=== PATIENT | female | born 1950 | race Caucasian/White ===

== ENCOUNTER 2016-07-26 12:48 | Inpatient (IN) | payer MEDICARE, BC ==
[~2016-07-26 12:48] MED LIST: SUCCINYLCHOLINE CHLORIDE INJ 200 MG/10 ML VIAL ONE
[2016-07-26] MEDS ORDERED: ACETAMINOPHEN 325 MG TABLET PO PRN (13:12)
[2016-07-26 14:05] LABS: HEMATOCRIT 46.4 % (36.0-47.0); HEMOGLOBIN 15.4 g/dL (12.0-15.5); HGB HCT DIFFERENCE -0.2; MEAN CORPUSCULAR HEMOGLOBIN 31.3 pg (27.0-33.4); MEAN CORPUSCULAR HGB CONC 33.2 g/dL (32.0-36.0); MEAN CORPUSCULAR VOLUME 94 fl (80-97); RED BLOOD COUNT 4.93 10^6/uL (3.72-5.28); RED CELL DISTRIBUTION WIDTH 13.8 % (11.5-14.0); WHITE BLOOD COUNT 12.2 10^3/uL (4.0-10.5)
--- NOTE | 2016-07-26 14:07 | PDOC H&P ---
History of Present Illness Admission Date/PCP: 07/26/16 12:48 Patti Estrella Patient complains of: Shortness of the breath and hypoxia History of Present Illness: RAE ARCHER is a 65 year old femMarinais is a 65-year-old with a significant history of the coronary artery disease chest post stent placement history of the COPD and continues to smoke and a history of the hypertension's hyperlipidemia and anxiety disorder came to the my office today with a complaining of a fever 102 and the shortness of the breath and not feeling well and patient's oxygen saturations below 85 room air. Patient was given nebulizer treatment and off and put on oxygen but still patients not feeling well and patient had 1 or 2 feet patient's quite a bit short of breath and wheezing and decided to admit in the hospital for further evaluation and treatment and discussed with the patient and family and angry about that. She is denied any chest pain patient also complains of cough congestions with a yellowish green sputum since last several days. Past Medical History Cardiac Medical History: Reports: Coronary Artery Disease, Hyperlipidema, Hypertension, Peripheral Vascular Disease Pulmonary Medical History: Reports: Chronic Obstructive Pulmonary Disease (COPD) Denies: Tuberculosis Neurological Medical History: Denies: Seizures GI Medical History: Reports: Gastroesophageal Reflux Disease Psychiatric Medical History: Reports: Depression Past Surgical History Past Surgical History: Reports: Cardiac Catheterization - w/ stent, Coronary Stent, Vascular Surgery - LEFT CAROTID ENDARTERECTOMY Denies: Hysterectomy Social History Information Source: Patient Smoking Status: Current Every Day Smoker Frequency of Alcohol Use: Rare Hx Recreational Drug Use: No Hx Prescription Drug Abuse: No Family History Family History: Reviewed & Not Pertinent, DM, Hypertension, Other - COPD Parental Family History Reviewed: Yes Children Family History Reviewed: Yes Sibling(s) Family History Reviewed.: Yes Medication/Allergy Home Medications: Bupropion HCl [Bupropion HCl Sr] 300 mg PO DAILY 08/17/13 Clopidogrel Bisulfate [Plavix 75 mg Tablet] 75 mg PO DAILY 08/17/13 Lisinopril/Hydrochlorothiazide [Lisinopril-Hctz 20-12.5 mg Tab] 1 each PO DAILY 08/17/13 Omeprazole 40 mg PO DAILY 08/17/13 Zolpidem Tartrate 10 mg PO DAILY 08/17/13 Albuterol Sulfate [Proair HFA Inhalation Aerosol 8.5 gm MDI] 2 puff IH Q6 #0 hfa.aer.ad 08/19/13 Budesonide/Formoterol Fumarate [Symbicort HFA 160-4.5 mcg Inhaler 6 gm] 2 puff IH BID #0 inhaler 08/19/13 Ferrous Sulfate 325 mg PO DAILY #100 tablet.dr 08/19/13 Metoprolol Tartrate [Lopressor 25 mg Tablet] 12.5 mg PO Q12 #0 tablet 08/19/13 Nitroglycerin [Nitro-Dur 5 mg (0.2 mg/Hr) Transdermal Patch] 1 each TD DAILY # 0 patch.td24 08/19/13 Ranolazine [Ranexa 500 mg Tab.sr] 500 mg PO Q12 #0 tab.sr.12h 08/19/13 Atorvastatin Calcium [Lipitor 20 mg Tablet] 20 mg PO QHS 08/31/13 Psyllium Seed (with Sugar) [Metamucil Fiber Wafer] 1 each PO DAILY 08/31/13 Allergies/Adverse Reactions: levofloxacin [From Levaquin] Allergy (Verified 08/17/13 15:57) Review of Systems Constitutional: PRESENT: chills, fatigue, weakness Nose, Mouth, and Throat: ABSENT: as per HPI, headache(s), mouth pain, sore throat, vertigo, other Cardiovascular: PRESENT: dyspnea on exertion Respiratory: PRESENT: cough, dyspnea, sputum Gastrointestinal: ABSENT: as per HPI, abdominal pain, bloating, coffee ground emesis, constipation, diarrhea, dysphagia, heartburn, hematemesis, hematochezia , melena, nausea, vomiting, other Genitourinary: ABSENT: as per HPI, difficulty urinating, dysuria, hematuria, nocturia, other Musculoskeletal: ABSENT: as per HPI, back pain, deformity, joint swelling, muscle weakness, other Neurological: PRESENT: weakness Psychiatric: PRESENT: depression Physical Exam Vital Signs: Temp Pulse Resp BP Pulse Ox 101.9 F H 110 H 19 130/63 H 82 L 07/26/16 13:14 07/26/16 13:14 07/26/16 13:14 07/26/16 13:14 07/26/16 13:14 Intake & Output 07/25/16 07/26/16 07/27/16 06:59 06:59 06:59 Weight 66.9 kg General appearance: PRESENT: no acute distress Eye exam: PRESENT: PERRLA Mouth exam: PRESENT: neck supple Respiratory exam: PRESENT: decreased breath sounds, wheezes Cardiovascular exam: PRESENT: +S1, +S2, tachycardia GI/Abdominal exam: PRESENT: normal bowel sounds, soft. ABSENT: tenderness Extremities exam: ABSENT: pedal edema Neurological exam: PRESENT: alert, awake, oriented to person, oriented to place , oriented to time, oriented to situation Psychiatric exam: PRESENT: anxious, depressed Skin exam: PRESENT: dry Assessment & Plan - Diagnosis (1) Fever Qualifiers: Fever type: unspecified Qualified Code(s): R50.9 - Fever, unspecified Is this a current diagnosis for this admission?: YesPlan: Possible fluid and underlying pneumonia we will do the flu test and also get the blood culture urine culture sputum and start the patient on the broad- spectrum antibiotic (2) COPD with acute bronchitis Is this a current diagnosis for this admission?: YesPlan: Start patient's nebulizer treatment and also antibiotic (3) Hypoxia Is this a current diagnosis for this admission?: YesPlan: The patient is a 2 L nasal cannula and oxygen scoot up to 90 we will also get the CT angiogram (4) Coronary artery disease Qualifiers: Coronary Disease-Associated Artery/Lesion type: unspecified vessel or lesion type Is this a current diagnosis for this admission?: YesPlan: At the EKG the patient's denied any coronary symptoms (5) Hypertension Qualifiers: Hypertension type: essential hypertension Qualified Code(s): I10 - Essential (primary) hypertension Is this a current diagnosis for this admission?: YesPlan: Continues the current medications (6) Depression Qualifiers: Depression Type: major depressive disorder Is this a current diagnosis for this admission?: YesPlan: Continues the current medications (7) Smoker Is this a current diagnosis for this admission?: YesPlan: Discussed with the patient about smoking cessation - Time Time Spent: 30 to 50 Minutes Medications reviewed and adjusted accordingly: Yes Anticipated discharge: Home Within: Other - Inpatient Certification Medical Necessity: Need Close Monitoring Due to Risk of Patient Decompensation, Need For IV Fluids, Need for IV Antibiotics Post Hospital Care: D/C Manager Speech Documentation - Plan Summary Plan Summary: Admit the patient in the hospital for further work and IV antibiotic and nebulizer treatment and discussed with the patient and the family and agree and directly admitted in the hospital
[2016-07-26] MEDS ORDERED: INFLUENZA ADLT QUAD (36MOS+) 2016-17 VAC 0.5 ML SYR IM PRN (14:12)
[2016-07-26] MEDS ORDERED: IPRATROPIUM/ALBUTEROL 0.5-2.5 MG/3 ML AMPUL NEB ONE (14:15)
[2016-07-26 14:21] LABS: APPEARANCE,URINE SLIGHTLY-CLOUDY; BILIRUBIN,URINE NEGATIVE (NEGATIVE); GLUCOSE, URINE NEGATIVE (NEGATIVE); KETONES,URINE 80 mg/dL (NEGATIVE); LEUKOCYTE ESTERASE,URINE SMALL (NEGATIVE); NITRITE,URINE NEGATIVE (NEGATIVE); PROTEIN,URINE 100 mg/dL (NEGATIVE); URINE SPECIFIC GRAVITY 1.027; UROBILINOGEN,URINE NEGATIVE mg/dL (<2.0)
[2016-07-26 14:23] LABS: ANION GAP 9 (5-19); BLOOD UREA NITROGEN 14 mg/dL (7-20); CALCIUM 9.7 mg/dL (8.4-10.2); CARBON DIOXIDE 26 mmol/L (22-30); CHLORIDE 101 mmol/L (98-107); CREATININE RESULT 0.83 mg/dL (0.52-1.25); GLUCOSE 90 mg/dL (75-110); POTASSIUM 4.1 mmol/L (3.6-5.0); SODIUM 136.2 mmol/L (137-145)
[2016-07-26 14:32] LABS: BAND NEUTROPHILS % (MANUAL) 2 % (3-5); BASOPHILS % (MANUAL) 0 % (0-2); EOSINOPHILS % (MANUAL) 0 % (0-6); LYMPHOCYTES % (MANUAL) 3 % (13-45); TOTAL CELLS COUNTED 100
[2016-07-26 14:33] LABS: RBC MORPHOLOGY COMMENT NORMO-CYTIC/CHROMIC; TOXIC GRANULATION SLIGHT; TOXIC VACUOLATION PRESENT
[2016-07-26] MEDS ORDERED: CEFEPIME 1 GM/D5W RTU 1 GM/50 ML RTUPB IV ONE (15:00)
[2016-07-26] MEDS: NORMAL SALINE 1000 ML 1,000 ML IV PRN (15:12)
[2016-07-26] MEDS: IPRATROPIUM/ALBUTEROL 0.5-2.5 MG/3 ML AMPUL NEB SCH ×2 (15:53→20:06)
[2016-07-26] MEDS ORDERED: LANSOPRAZOLE 15 MG TAB.RAP.DR PO SCH (17:00)
[2016-07-26] MEDS ORDERED: SIMVASTATIN 10 MG TABLET PO SCH (18:00)
[2016-07-26] MEDS ORDERED: (PENDING PHARMACY ID) (Simvastatin [Simvastatin] 20 MG) PO SCH (18:00)
[2016-07-26] MEDS ORDERED: (PENDING PHARMACY ID) (Levocetirizine Dihydrochloride [Xyzal 5 Mg Tablet] 5 MG) PO SCH (18:00)
[2016-07-26] MEDS ORDERED: CETIRIZINE 5 MG TABLET PO SCH (18:00)
[2016-07-26] MEDS: DOCUSATE SODIUM 100 MG CAPSULE PO SCH (18:11)
[2016-07-26] MEDS: AZITHROMYCIN 500 MG in DEXTROSE 5%-WATER 250 ML IV SCH (18:16)
[2016-07-26] MEDS: ALBUTEROL SULFATE HFA (90 MCG/PUFF) 200 PUFF/8.5 GM MDI IH SCH (18:18)
[2016-07-26] MEDS ORDERED: IPRATROPIUM/ALBUTEROL 0.5-2.5 MG/3 ML AMPUL NEB SCH (20:00)
[2016-07-26] MEDS ORDERED: NICOTINE 21 MG/24 HR PATCH.TD24 TD ONE (21:00)
[2016-07-26] MEDS: RANOLAZINE 500 MG TAB.SR.12H PO SCH (21:19)
--- NOTE | 2016-07-26 21:41 | EKG REPORT ---
SEVERITY:- OTHERWISE NORMAL ECG - SINUS TACHYCARDIA : Confirmed by: Meka Shay 26-Jul-2016 21:40:33
[2016-07-26] MEDS: METHYLPREDNISOLONE INJ 125 MG/2 ML SDV IV SCH (21:59)
[2016-07-26] MEDS ORDERED: AMLODIPINE BESYLATE 2.5 MG TABLET PO SCH (22:00)
[2016-07-26] MEDS ORDERED: ZOLPIDEM TARTRATE 5 MG TABLET PO SCH (22:00)
[2016-07-26] MEDS ORDERED: TIOTROPIUM BROMIDE DPI 5 CAP/KIT (18 MCG/CAP) IH ONE (22:00)
[2016-07-26] MEDS ORDERED: MONTELUKAST SODIUM 10 MG TABLET PO SCH (22:00)
[2016-07-26] MEDS ORDERED: BUDESONIDE/FORMOTEROL 160-4.5 MCG 60 PUFF/6 GM MDI IH SCH (22:00)
[2016-07-26] MEDS: IPRATROPIUM/ALBUTEROL 0.5-2.5 MG/3 ML AMPUL NEB PRN (23:01)
[2016-07-26] MEDS ORDERED: MAGNESIUM SULFATE/D5W 1 GM/100 ML RTUPB IV ONE (23:32)
[2016-07-27] MEDS ORDERED: MAGNESIUM SULFATE/D5W 1 GM/100 ML RTUPB IV ONE (00:15)
[2016-07-27] MEDS ORDERED: PROPOFOL 100 ML IV ONE (00:17)
[2016-07-27] MEDS: IPRATROPIUM/ALBUTEROL 0.5-2.5 MG/3 ML AMPUL NEB PRN (00:25)
[2016-07-27] MEDS ORDERED: PHENYLEPHRINE HCL INJ/PF 10 MG/1 ML SDV ONE (01:05)
[2016-07-27 01:09] LABS: ARTERIAL BLOOD BASE EXCESS -3.7 mmol/L; ARTERIAL BLOOD O2 SATURATION 95.9 % (94-98)
[2016-07-27] MEDS ORDERED: PHARMACY COMMUNICATION ORDER MC NR ×2 (01:45)
[2016-07-27] MEDS: ALBUTEROL SULFATE HFA (90 MCG/PUFF) 200 PUFF/8.5 GM MDI IH SCH (02:09)
[2016-07-27] MEDS: DEXTROSE 5%-WATER 250 ML with PHENYLEPHRINE HCL 40 MG IV PRN ×2 (02:15)
[2016-07-27] MEDS: PROPOFOL 100 ML IV PRN ×7 (02:21→21:55)
[2016-07-27] MEDS ORDERED: CEFEPIME 1 GM/D5W RTU 1 GM/50 ML RTUPB IV ONE (02:47)
[2016-07-27] MEDS: CEFEPIME 1 GM/D5W RTU 1 GM/50 ML RTUPB IV SCH ×2 (02:50→15:20)
[2016-07-27 04:12] LABS: HEMATOCRIT 39.8 % (36.0-47.0); HEMOGLOBIN 13.4 g/dL (12.0-15.5); HGB HCT DIFFERENCE 0.4; MEAN CORPUSCULAR HEMOGLOBIN 31.6 pg (27.0-33.4); MEAN CORPUSCULAR HGB CONC 33.5 g/dL (32.0-36.0); MEAN CORPUSCULAR VOLUME 94 fl (80-97); RED BLOOD COUNT 4.23 10^6/uL (3.72-5.28); WHITE BLOOD COUNT 8.7 10^3/uL (4.0-10.5)
[2016-07-27 04:34] LABS: ANION GAP 9 (5-19); BLOOD UREA NITROGEN 15 mg/dL (7-20); CALCIUM 8.5 mg/dL (8.4-10.2); CARBON DIOXIDE 22 mmol/L (22-30); CHLORIDE 103 mmol/L (98-107); CREATININE RESULT 0.85 mg/dL (0.52-1.25); GLUCOSE 157 mg/dL (75-110); POTASSIUM 4.6 mmol/L (3.6-5.0); SODIUM 133.5 mmol/L (137-145)
[2016-07-27] MEDS: IPRATROPIUM/ALBUTEROL 0.5-2.5 MG/3 ML AMPUL NEB SCH ×5 (04:57→20:24)
[2016-07-27] MEDS: LANSOPRAZOLE 15 MG TAB.RAP.DR NG SCH ×2 (05:37→17:16)
[2016-07-27] MEDS: METHYLPREDNISOLONE INJ 125 MG/2 ML SDV IV SCH ×3 (05:37→21:00)
[2016-07-27 06:15] LABS: ARTERIAL BLOOD BASE EXCESS -3.8 mmol/L; ARTERIAL BLOOD O2 SATURATION 98.3 % (94-98)
[2016-07-27] MEDS ORDERED: LORAZEPAM INJ 2 MG/1 ML VIAL IV PRN (07:49)
[2016-07-27] MEDS ORDERED: IPRATROPIUM/ALBUTEROL 0.5-2.5 MG/3 ML AMPUL NEB SCH (08:00)
[2016-07-27] MEDS: ENOXAPARIN SODIUM INJ 40 MG/0.4 ML DISP.SYRIN SUBCUT SCH (08:45)
[2016-07-27] MEDS: LORAZEPAM INJ 2 MG/1 ML VIAL IV PRN ×2 (09:25→17:08)
[2016-07-27] MEDS: AMLODIPINE BESYLATE 2.5 MG TABLET NG SCH ×2 (09:26→21:00)
[2016-07-27] MEDS: NICOTINE 21 MG/24 HR PATCH.TD24 TD SCH (09:28)
[2016-07-27] MEDS: DOCUSATE SODIUM 100 MG CAPSULE PO SCH (09:29)
[2016-07-27] MEDS ORDERED: (PENDING PHARMACY ID) (Zolpidem Tartrate [Zolpidem Tartrate] 10 MG) PO SCH (10:00)
[2016-07-27] MEDS ORDERED: (PENDING PHARMACY ID) (Linaclotide [Linzess] 145 MCG) PO SCH (10:00)
[2016-07-27] MEDS ORDERED: DOCUSATE SODIUM 100 MG/10 ML UDC NG SCH (10:00)
[2016-07-27 11:05] LABS: ARTERIAL BLOOD BASE EXCESS -2.3 mmol/L; ARTERIAL BLOOD O2 SATURATION 95.2 % (94-98)
--- NOTE | 2016-07-27 12:36 | PDOC CONSULTATION ---
Consultation Consult Date: 07/27/16 Attending physician:: GISELA OCHOA Consult reason:: resp failure History of Present Illness Admission Date/PCP: 07/26/16 13:12 Patti Estrella History of Present Illness: RAE ARCHER is a 65 year old female with a significant history of the coronary artery disease chest post stent placement history of the COPD and continues to smoke and a history of the hypertension's hyperlipidemia and anxiety disorder came to the my office today with a complaining of a fever 102 and the shortness of the breath and not feeling well and patient's oxygen saturations below 85 room air. Patient was given nebulizer treatment and off and put on oxygen but still patients not feeling well and patient had 1 or 2 feet patient's quite a bit short of breath and wheezing and decided to admit in the hospital for further evaluation and treatment and discussed with the patient and family and angry about that. She is denied any chest pain patient also complains of cough congestions with a yellowish green sputum since last several days. Over the next several hours her respiratory status continued to decline she was placed in the ICU and subsequently intubated. Is currently displaying gram-negative rods in the sputum although no overt pneumonia is not displayed on CTA. Patient continues to smoke as above. Past Medical History Cardiac Medical History: Reports: Coronary Artery Disease, Hyperlipidema, Hypertension, Peripheral Vascular Disease Pulmonary Medical History: Reports: Chronic Obstructive Pulmonary Disease (COPD) Denies: Tuberculosis Neurological Medical History: Denies: Seizures GI Medical History: Reports: Gastroesophageal Reflux Disease Psychiatric Medical History: Reports: Depression Past Surgical History Past Surgical History: Reports: Cardiac Catheterization - w/ stent, Coronary Stent, Vascular Surgery - LEFT CAROTID ENDARTERECTOMY Denies: Hysterectomy Social History Information Source: [facility] Records Smoking Status: Current Every Day Smoker Cigarettes Packs Per Day: 1 Cigars Per Day: 10 Number of Years Smokin Last Time Smoked: yesterday a.m. Frequency of Alcohol Use: Rare Hx Recreational Drug Use: No Hx Prescription Drug Abuse: No - Advance Directive Resuscitation Status: Full Code Family History Family History: Reviewed & Not Pertinent, DM, Hypertension, Other - COPD Parental Family History Reviewed: No Children Family History Reviewed: No Sibling(s) Family History Reviewed.: No Medication/Allergy Home Medications: Zolpidem Tartrate 10 mg PO DAILY 08/17/13 Albuterol Sulfate [Proair HFA Inhalation Aerosol 8.5 gm MDI] 2 puff IH Q6 #0 hfa.aer.ad 08/19/13 Budesonide/Formoterol Fumarate [Symbicort HFA 160-4.5 mcg Inhaler 6 gm] 2 puff IH BID #0 inhaler 08/19/13 Ranolazine [Ranexa 500 mg Tab.sr] 500 mg PO Q12 #0 tab.sr.12h 08/19/13 Amlodipine Besylate 2.5 mg PO Q12H 07/26/16 Ipratropium/Albuterol Sulfate [Iprat-Albut 0.5-3(2.5) Mg/3 Ml] 3 ml IH Q6H 07/26 Isosorbide Mononitrate [Imdur 30 mg Tablet.er] 30 mg PO DAILY 07/26/16 Levocetirizine Dihydrochloride [Xyzal 5 mg Tablet] 5 mg PO QPM 07/26/16 Linaclotide [Linzess] 145 mcg PO DAILY 07/26/16 Montelukast Sodium 10 mg PO QHS 07/26/16 Simvastatin 20 mg PO QPM 07/26/16 Allergies/Adverse Reactions: levofloxacin [From Levaquin] Allergy (Verified 08/17/13 15:57) Review of Systems ROS unobtainable: Due to endotracheal tube Physical Exam Vital Signs: Temp Pulse Resp BP Pulse Ox 98.8 F 64 16 133/61 H 96 07/27/16 08:00 07/27/16 10:00 07/27/16 10:00 07/27/16 10:00 07/27/16 10:00 Intake & Output 07/26/16 07/27/16 07/28/16 06:59 06:59 06:59 Intake Total 300 Output Total 270 245 Balance 30 -245 Weight 68.8 kg General appearance: PRESENT: no acute distress, disheveled, well-developed, well -nourished Head exam: PRESENT: atraumatic, normocephalic Eye exam: PRESENT: conjunctiva pale Mouth exam: PRESENT: dry mucosa, neck supple, tongue midline, other - ET tube in place Neck exam: ABSENT: carotid bruit, JVD, lymphadenopathy, thyromegaly Respiratory exam: PRESENT: decreased breath sounds, prolonged expiratory phas, rales, rhonchi, symmetrical, unlabored Cardiovascular exam: PRESENT: RRR, +S1, +S2 Pulses: PRESENT: normal radial pulses GI/Abdominal exam: PRESENT: normal bowel sounds, soft. ABSENT: distended, guarding, mass, organolmegaly, rebound, tenderness Rectal exam: PRESENT: deferred Gentrourinary exam: PRESENT: indwelling catheter Musculoskeletal exam: PRESENT: normal inspection Skin exam: PRESENT: dry, intact, warm Results Laboratory Results: 07/27/16 03:54 07/27/16 03:54 07/26/16 07/26/16 07/26/16 13:45 13:45 13:55 WBC 12.2 H RBC 4.93 Hgb 15.4 Hct 46.4 MCV 94 MCH 31.3 MCHC 33.2 RDW 13.8 Plt Count 179 Seg Neutrophils % Not Reportable Lymphocytes % Not Reportable Monocytes % Not Reportable Eosinophils % Not Reportable Basophils % Not Reportable Absolute Neutrophils Not Reportable Absolute Lymphocytes Not Reportable Absolute Monocytes Not Reportable Absolute Eosinophils Not Reportable Absolute Basophils Not Reportable Carbonic Acid HCO3/H2CO3 Ratio ABG pH ABG pCO2 ABG pO2 ABG HCO3 ABG O2 Saturation ABG Base Excess FiO2 Sodium 136.2 L Potassium 4.1 Chloride 101 Carbon Dioxide 26 Anion Gap 9 BUN 14 Creatinine 0.83 Est GFR ( Amer) > 60 Est GFR (Non-Af Amer) > 60 Glucose 90 Calcium 9.7 Urine Color YELLOW Urine Appearance SLIGHTLY-CLOUDY Urine pH 5.0 Ur Specific [place] 1.027 Urine Protein 100 H Urine Glucose (UA) NEGATIVE Urine Ketones 80 H Urine Blood LARGE H Urine Nitrite NEGATIVE Ur Leukocyte Esterase SMALL H Urine WBC (Auto) 5 Urine RBC (Auto) 4 07/26/16 07/27/16 07/27/16 23:45 03:54 03:54 WBC 8.7 RBC 4.23 Hgb 13.4 Hct 39.8 MCV 94 MCH 31.6 MCHC 33.5 RDW 14.0 Plt Count 154 Seg Neutrophils % Lymphocytes % Monocytes % Eosinophils % Basophils % Absolute Neutrophils Absolute Lymphocytes Absolute Monocytes Absolute Eosinophils Absolute Basophils Carbonic Acid 2.02 H HCO3/H2CO3 Ratio 12:1 ABG pH 7.21 L ABG pCO2 67.0 H ABG pO2 98.5 ABG HCO3 26.0 ABG O2 Saturation 95.9 ABG Base Excess -3.7 FiO2 3L Sodium 133.5 L Potassium 4.6 Chloride 103 Carbon Dioxide 22 Anion Gap 9 BUN 15 Creatinine 0.85 Est GFR ( Amer) > 60 Est GFR (Non-Af Amer) > 60 Glucose 157 H Calcium 8.5 Urine Color Urine Appearance Urine pH Ur Specific [place] Urine Protein Urine Glucose (UA) Urine Ketones Urine Blood Urine Nitrite Ur Leukocyte Esterase Urine WBC (Auto) Urine RBC (Auto) 07/27/16 07/27/16 06:00 10:35 WBC RBC Hgb Hct MCV MCH MCHC RDW Plt Count Seg Neutrophils % Lymphocytes % Monocytes % Eosinophils % Basophils % Absolute Neutrophils Absolute Lymphocytes Absolute Monocytes Absolute Eosinophils Absolute Basophils Carbonic Acid 1.56 H 1.44 H HCO3/H2CO3 Ratio 15:1 16:1 ABG pH 7.28 L 7.32 L ABG pCO2 51.9 H 47.7 H ABG pO2 132.5 H 82.0 ABG HCO3 23.6 24.1 ABG O2 Saturation 98.3 H 95.2 ABG Base Excess -3.8 -2.3 FiO2 50% 40% Sodium Potassium Chloride Carbon Dioxide Anion Gap BUN Creatinine Est GFR ( Amer) Est GFR (Non-Af Amer) Glucose Calcium Urine Color Urine Appearance Urine pH Ur Specific [place] Urine Protein Urine Glucose (UA) Urine Ketones Urine Blood Urine Nitrite Ur Leukocyte Esterase Urine WBC (Auto) Urine RBC (Auto) 07/26/16 13:45 NT-Pro-B Natriuret Pep 169 Impressions: Chest/Abdomen CTA 07/26/16 00:00 IMPRESSION: NORMAL CTA OF THE CHEST. NO PULMONARY EMBOLI. EMPHYSEMATOUS CHANGES WITH CHRONIC SCARRING. NO ACUTE FINDINGS. Chest X-Ray 07/27/16 00:08 IMPRESSION: No acute radiographic finding in the chest. Emphysema. Support devices in expected locations. Assessment & Plan - Diagnosis (1) Respiratory failure with hypoxia and hypercapnia Qualifiers: Chronicity: acute on chronic Qualified Code(s): J96.21 - Acute and chronic respiratory failure with hypoxia; J96.22 - Acute and chronic respiratory failure with hypercapnia Is this a current diagnosis for this admission?: YesPlan: Mechanical ventilation resolved respiratory acidosis and to provide adequate oxygenation suggest holding spiriva and budesonide (2) Depression Qualifiers: Depression Type: major depressive disorder Is this a current diagnosis for this admission?: YesPlan: Add small dose of Xanax to daily regimen (3) Smoker Is this a current diagnosis for this admission?: YesPlan: Transdermal nicotine patch - Time Critical Time spent with patient: 35 or more minutes - 55 min
--- NOTE | 2016-07-27 16:55 | PDOC PROGRESS REPORT ---
Subjective Progress Note for:: 07/27/16 Subjective:: Patient is intubated last night and transferred to the intensive care unit due to the worsening the respiratory distress.Patient's chest x-ray is stablePatient is currently intubated under sedation's and some pressor supportDiscussed with the daughter on the bedside about patient's current conditionPatient CT scans source of severe emphysema but no sign of any pulmonary embolism Physical Exam Vital Signs: Temp Pulse Resp BP Pulse Ox 97.5 F 68 16 120/54 L 94 07/27/16 16:00 07/27/16 16:00 07/27/16 16:00 07/27/16 16:00 07/27/16 16:00 Intake & Output 07/26/16 07/27/16 07/28/16 06:59 06:59 06:59 Intake Total 300 Output Total 270 435 Balance 30 -435 Weight 68.8 kg Physical Exam: Currently intubated under sedation's Head exam: PRESENT: normocephalic Eye exam: PRESENT: PERRLA Mouth exam: PRESENT: neck supple Respiratory exam: PRESENT: decreased breath sounds Cardiovascular exam: PRESENT: +S1, +S2 GI/Abdominal exam: PRESENT: normal bowel sounds, soft Extremities exam: ABSENT: pedal edema Neurological exam: PRESENT: other - Under sedation Results Laboratory Results: 07/27/16 03:54 07/27/16 03:54 07/26/16 07/27/16 07/27/16 23:45 03:54 03:54 WBC 8.7 RBC 4.23 Hgb 13.4 Hct 39.8 MCV 94 MCH 31.6 MCHC 33.5 RDW 14.0 Plt Count 154 Carbonic Acid 2.02 H HCO3/H2CO3 Ratio 12:1 ABG pH 7.21 L ABG pCO2 67.0 H ABG pO2 98.5 ABG HCO3 26.0 ABG O2 Saturation 95.9 ABG Base Excess -3.7 FiO2 3L Sodium 133.5 L Potassium 4.6 Chloride 103 Carbon Dioxide 22 Anion Gap 9 BUN 15 Creatinine 0.85 Est GFR ( Amer) > 60 Est GFR (Non-Af Amer) > 60 Glucose 157 H Calcium 8.5 07/27/16 07/27/16 06:00 10:35 WBC RBC Hgb Hct MCV MCH MCHC RDW Plt Count Carbonic Acid 1.56 H 1.44 H HCO3/H2CO3 Ratio 15:1 16:1 ABG pH 7.28 L 7.32 L ABG pCO2 51.9 H 47.7 H ABG pO2 132.5 H 82.0 ABG HCO3 23.6 24.1 ABG O2 Saturation 98.3 H 95.2 ABG Base Excess -3.8 -2.3 FiO2 50% 40% Sodium Potassium Chloride Carbon Dioxide Anion Gap BUN Creatinine Est GFR ( Amer) Est GFR (Non-Af Amer) Glucose Calcium 07/26/16 13:45 NT-Pro-B Natriuret Pep 169 Impressions: Chest/Abdomen CTA 07/26/16 00:00 IMPRESSION: NORMAL CTA OF THE CHEST. NO PULMONARY EMBOLI. EMPHYSEMATOUS CHANGES WITH CHRONIC SCARRING. NO ACUTE FINDINGS. Chest X-Ray 07/27/16 00:08 IMPRESSION: No acute radiographic finding in the chest. Emphysema. Support devices in expected locations. Assessment & Plan - Diagnosis (1) Fever Qualifiers: Fever type: unspecified Qualified Code(s): R50.9 - Fever, unspecified Is this a current diagnosis for this admission?: YesPlan: Possible bronchitis with the possible influenza (2) COPD with acute bronchitis Is this a current diagnosis for this admission?: YesPlan: Severe emphysema continues the current medications (3) Hypoxia Is this a current diagnosis for this admission?: YesPlan: From emphysema (4) Coronary artery disease Qualifiers: Coronary Disease-Associated Artery/Lesion type: unspecified vessel or lesion type Is this a current diagnosis for this admission?: YesPlan: At the EKG the patient's denied any coronary symptoms (5) Hypertension Qualifiers: Hypertension type: essential hypertension Qualified Code(s): I10 - Essential (primary) hypertension Is this a current diagnosis for this admission?: YesPlan: Continues the current medications (6) Depression Qualifiers: Depression Type: major depressive disorder Is this a current diagnosis for this admission?: Yes (7) Smoker Is this a current diagnosis for this admission?: Yes (8) Respiratory failure with hypoxia and hypercapnia Qualifiers: Chronicity: acute on chronic Qualified Code(s): J96.21 - Acute and chronic respiratory failure with hypoxia; J96.22 - Acute and chronic respiratory failure with hypercapnia Is this a current diagnosis for this admission?: YesPlan: Currently on intubated and follow with the pulmonary - Time Time Spent with patient: 15-24 minutes Critical Time spent with patient: 15-24 minutes Medications reviewed and adjusted accordingly: Yes Anticipated discharge: Other - Inpatient Certification Medical Necessity: Significant Comorbidiites Make Outpatient Treatment Too Risky , Need for Nebulizer Therapy and Monitoring of Response, Need for IV Antibiotics Post Hospital Care: D/C Lcsw Documentation - Plan Summary Plan Summary: Discussed with the family about the patient's current conditions and consult the pulmonary and continues the current medications patient's prognosis is poor
[2016-07-27] MEDS: AZITHROMYCIN 500 MG in DEXTROSE 5%-WATER 250 ML IV SCH (17:08)
[2016-07-27] MEDS: SIMVASTATIN 10 MG TABLET NG SCH (17:16)
[2016-07-27] MEDS: CETIRIZINE 5 MG TABLET NG SCH (17:17)
[2016-07-27] MEDS: ZOLPIDEM TARTRATE 5 MG TABLET NG SCH (21:00)
[2016-07-27] MEDS: MONTELUKAST SODIUM 10 MG TABLET NG SCH (21:00)
[2016-07-28] MEDS: IPRATROPIUM/ALBUTEROL 0.5-2.5 MG/3 ML AMPUL NEB SCH ×7 (00:01→23:56)
[2016-07-28] MEDS: PROPOFOL 100 ML IV PRN ×8 (00:53→21:35)
[2016-07-28] MEDS: CEFEPIME 1 GM/D5W RTU 1 GM/50 ML RTUPB IV SCH (03:47)
[2016-07-28] MEDS: LANSOPRAZOLE 15 MG TAB.RAP.DR NG SCH ×2 (05:23→17:07)
[2016-07-28] MEDS: NORMAL SALINE 1000 ML 1,000 ML IV PRN ×2 (05:23→21:37)
[2016-07-28] MEDS: METHYLPREDNISOLONE INJ 125 MG/2 ML SDV IV SCH ×3 (05:23→21:36)
[2016-07-28 05:35] LABS: ARTERIAL BLOOD BASE EXCESS -1.7 mmol/L; ARTERIAL BLOOD O2 SATURATION 96.8 % (94-98)
[2016-07-28 05:56] LABS: HEMATOCRIT 41.5 % (36.0-47.0); HEMOGLOBIN 13.7 g/dL (12.0-15.5); HGB HCT DIFFERENCE -0.4; MEAN CORPUSCULAR HEMOGLOBIN 31.4 pg (27.0-33.4); MEAN CORPUSCULAR VOLUME 95 fl (80-97); RED BLOOD COUNT 4.36 10^6/uL (3.72-5.28); RED CELL DISTRIBUTION WIDTH 14.2 % (11.5-14.0); WHITE BLOOD COUNT 8.5 10^3/uL (4.0-10.5)
[2016-07-28 06:25] LABS: ANION GAP 7 (5-19); BLOOD UREA NITROGEN 10 mg/dL (7-20); CALCIUM 9.1 mg/dL (8.4-10.2); CARBON DIOXIDE 24 mmol/L (22-30); CHLORIDE 106 mmol/L (98-107); CREATININE RESULT 0.71 mg/dL (0.52-1.25); GLUCOSE 149 mg/dL (75-110); MAGNESIUM 2.2 mg/dL (1.6-2.3); POTASSIUM 4.4 mmol/L (3.6-5.0); SODIUM 136.5 mmol/L (137-145)
[2016-07-28] MEDS: ENOXAPARIN SODIUM INJ 40 MG/0.4 ML DISP.SYRIN SUBCUT SCH (07:48)
[2016-07-28] MEDS: DEXTROSE 5%-WATER 250 ML with PHENYLEPHRINE HCL 40 MG IV PRN ×2 (08:25)
--- NOTE | 2016-07-28 09:37 | PDOC PROGRESS REPORT ---
Subjective Progress Note for:: 07/28/16 Subjective:: intubated Physical Exam Vital Signs: Temp Pulse Resp BP Pulse Ox 98.4 F 102 H 17 143/65 H 97 07/28/16 08:00 07/28/16 08:36 07/28/16 08:36 07/28/16 08:00 07/28/16 08:36 Intake & Output 07/27/16 07/28/16 07/29/16 06:59 06:59 06:59 Intake Total 300 2181 Output Total 270 2410 60 Balance 30 -229 -60 Weight 68.8 kg 69 kg General appearance: PRESENT: disheveled, well-developed, well-nourished Head exam: PRESENT: atraumatic, normocephalic Eye exam: PRESENT: conjunctiva pale Mouth exam: PRESENT: dry mucosa, neck supple, tongue midline, other - ET tube in place Neck exam: ABSENT: carotid bruit, JVD, lymphadenopathy, thyromegaly Respiratory exam: PRESENT: decreased breath sounds, prolonged expiratory phas, rhonchi, symmetrical, unlabored Cardiovascular exam: PRESENT: RRR, +S1, +S2 Pulses: PRESENT: normal radial pulses GI/Abdominal exam: PRESENT: ascites Rectal exam: PRESENT: deferred Gentrourinary exam: PRESENT: indwelling catheter Musculoskeletal exam: PRESENT: normal inspection Skin exam: PRESENT: dry, intact, warm Results Laboratory Results: 07/28/16 05:09 07/28/16 05:09 07/27/16 07/28/16 07/28/16 10:35 05:09 05:09 WBC 8.5 RBC 4.36 Hgb 13.7 Hct 41.5 MCV 95 MCH 31.4 MCHC 33.0 RDW 14.2 H Plt Count 161 Carbonic Acid 1.44 H HCO3/H2CO3 Ratio 16:1 ABG pH 7.32 L ABG pCO2 47.7 H ABG pO2 82.0 ABG HCO3 24.1 ABG O2 Saturation 95.2 ABG Base Excess -2.3 FiO2 40% Sodium 136.5 L Potassium 4.4 Chloride 106 Carbon Dioxide 24 Anion Gap 7 BUN 10 Creatinine 0.71 Est GFR ( Amer) > 60 Est GFR (Non-Af Amer) > 60 Glucose 149 H Calcium 9.1 Magnesium 2.2 07/28/16 05:20 WBC RBC Hgb Hct MCV MCH MCHC RDW Plt Count Carbonic Acid 1.36 H HCO3/H2CO3 Ratio 17:1 ABG pH 7.35 ABG pCO2 45.3 H ABG pO2 94.5 ABG HCO3 24.2 ABG O2 Saturation 96.8 ABG Base Excess -1.7 FiO2 35% Sodium Potassium Chloride Carbon Dioxide Anion Gap BUN Creatinine Est GFR ( Amer) Est GFR (Non-Af Amer) Glucose Calcium Magnesium 07/26/16 17:00 Sputum Gram Stain - Final 07/26/16 17:00 Sputum Sputum Culture - Final Klebsiella Pneumoniae Normal Ayla 07/26/16 13:45 NT-Pro-B Natriuret Pep 169 Impressions: Chest/Abdomen CTA 07/26/16 00:00 IMPRESSION: NORMAL CTA OF THE CHEST. NO PULMONARY EMBOLI. EMPHYSEMATOUS CHANGES WITH CHRONIC SCARRING. NO ACUTE FINDINGS. Chest X-Ray 07/27/16 00:08 IMPRESSION: No acute radiographic finding in the chest. Emphysema. Support devices in expected locations. Assessment & Plan - Diagnosis (1) Respiratory failure with hypoxia and hypercapnia Qualifiers: Chronicity: acute on chronic Qualified Code(s): J96.21 - Acute and chronic respiratory failure with hypoxia; J96.22 - Acute and chronic respiratory failure with hypercapnia Is this a current diagnosis for this admission?: YesPlan: weaning attempt 60 min in duratiion ending fatigue and decreased SAO2 (2) Depression Qualifiers: Depression Type: major depressive disorder Is this a current diagnosis for this admission?: YesPlan: Add small dose of Xanax to daily regimen (3) Smoker Is this a current diagnosis for this admission?: YesPlan: Transdermal nicotine patch (4) Pneumonia due to Klebsiella pneumoniae Is this a current diagnosis for this admission?: YesPlan: dc azithromycin and cefepime begin ceftazadime - Time Critical Time spent with patient: 35 or more minutes - 35 min
[2016-07-28] MEDS: NICOTINE 21 MG/24 HR PATCH.TD24 TD SCH (10:16)
[2016-07-28] MEDS: AMLODIPINE BESYLATE 2.5 MG TABLET NG SCH ×2 (10:27→21:36)
[2016-07-28] MEDS: CEFTAZIDIME PENTAHYDRATE 1 GM in DEXTROSE 5%-WATER 50 ML IV SCH ×2 (13:16→21:36)
--- NOTE | 2016-07-28 13:54 | PDOC PROGRESS REPORT ---
Subjective Progress Note for:: 07/28/16 Subjective:: pt is doing fair still intubated sputum shows klbessla nofever urine out is stable still on ginger 30mcg Physical Exam Vital Signs: Temp Pulse Resp BP Pulse Ox 98.6 F 79 16 127/61 H 94 07/28/16 12:00 07/28/16 12:21 07/28/16 12:21 07/28/16 12:00 07/28/16 12:21 Intake & Output 07/27/16 07/28/16 07/29/16 06:59 06:59 06:59 Intake Total 300 2181 Output Total 270 2410 335 Balance 30 -229 -335 Weight 68.8 kg 69 kg Physical Exam: intubated and under sedation General appearance: PRESENT: no acute distress Head exam: PRESENT: normocephalic Eye exam: PRESENT: PERRLA Mouth exam: PRESENT: neck supple Respiratory exam: PRESENT: decreased breath sounds Cardiovascular exam: PRESENT: +S1, +S2 GI/Abdominal exam: PRESENT: normal bowel sounds, soft Extremities exam: ABSENT: pedal edema Results Laboratory Results: 07/28/16 05:09 07/28/16 05:09 07/28/16 07/28/16 07/28/16 05:09 05:09 05:20 WBC 8.5 RBC 4.36 Hgb 13.7 Hct 41.5 MCV 95 MCH 31.4 MCHC 33.0 RDW 14.2 H Plt Count 161 Carbonic Acid 1.36 H HCO3/H2CO3 Ratio 17:1 ABG pH 7.35 ABG pCO2 45.3 H ABG pO2 94.5 ABG HCO3 24.2 ABG O2 Saturation 96.8 ABG Base Excess -1.7 FiO2 35% Sodium 136.5 L Potassium 4.4 Chloride 106 Carbon Dioxide 24 Anion Gap 7 BUN 10 Creatinine 0.71 Est GFR ( Amer) > 60 Est GFR (Non-Af Amer) > 60 Glucose 149 H Calcium 9.1 Magnesium 2.2 07/26/16 13:55 Clean Catch Midstream Urine Culture - Final NO GROWTH 2 DAYS 07/26/16 17:00 Sputum Gram Stain - Final 07/26/16 17:00 Sputum Sputum Culture - Final Klebsiella Pneumoniae Normal Ayla 07/26/16 13:45 NT-Pro-B Natriuret Pep 169 Impressions: Chest/Abdomen CTA 07/26/16 00:00 IMPRESSION: NORMAL CTA OF THE CHEST. NO PULMONARY EMBOLI. EMPHYSEMATOUS CHANGES WITH CHRONIC SCARRING. NO ACUTE FINDINGS. Chest X-Ray 07/27/16 00:08 IMPRESSION: No acute radiographic finding in the chest. Emphysema. Support devices in expected locations. Assessment & Plan - Diagnosis (1) Fever Qualifiers: Fever type: unspecified Qualified Code(s): R50.9 - Fever, unspecified Is this a current diagnosis for this admission?: YesPlan: from penmonia (2) COPD with acute bronchitis Is this a current diagnosis for this admission?: YesPlan: Severe emphysema continues the current medications (3) Hypoxia Is this a current diagnosis for this admission?: YesPlan: From emphysema (4) Coronary artery disease Qualifiers: Coronary Disease-Associated Artery/Lesion type: unspecified vessel or lesion type Is this a current diagnosis for this admission?: YesPlan: At the EKG the patient's denied any coronary symptoms (5) Hypertension Qualifiers: Hypertension type: essential hypertension Qualified Code(s): I10 - Essential (primary) hypertension Is this a current diagnosis for this admission?: YesPlan: Continues the current medications (6) Depression Qualifiers: Depression Type: major depressive disorder Is this a current diagnosis for this admission?: Yes (7) Smoker Is this a current diagnosis for this admission?: Yes (8) Respiratory failure with hypoxia and hypercapnia Qualifiers: Chronicity: acute on chronic Qualified Code(s): J96.21 - Acute and chronic respiratory failure with hypoxia; J96.22 - Acute and chronic respiratory failure with hypercapnia Is this a current diagnosis for this admission?: YesPlan: Currently on intubated and follow with the pulmonary (9) Pneumonia due to Klebsiella pneumoniae Qualifiers: Lung location: unspecified part of lung Is this a current diagnosis for this admission?: YesPlan: cont curr medication - Time Time Spent with patient: 15-24 minutes Critical Time spent with patient: 15-24 minutes Medications reviewed and adjusted accordingly: Yes Anticipated discharge: Other - Inpatient Certification Medical Necessity: Significant Comorbidiites Make Outpatient Treatment Too Risky , Need Close Monitoring Due to Risk of Patient Decompensation, Need for IV Antibiotics 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
[2016-07-28] MEDS: CETIRIZINE 5 MG TABLET NG SCH (17:07)
[2016-07-28] MEDS: SIMVASTATIN 10 MG TABLET NG SCH (17:07)
[2016-07-28] MEDS: LORAZEPAM INJ 2 MG/1 ML VIAL IV PRN (21:36)
[2016-07-28] MEDS: MONTELUKAST SODIUM 10 MG TABLET NG SCH (21:37)
[2016-07-28] MEDS: ZOLPIDEM TARTRATE 5 MG TABLET NG SCH (21:37)
[2016-07-29] MEDS: PROPOFOL 100 ML IV PRN ×7 (01:02→21:20)
[2016-07-29] MEDS: IPRATROPIUM/ALBUTEROL 0.5-2.5 MG/3 ML AMPUL NEB SCH ×6 (04:07→23:55)
[2016-07-29 05:00] LABS: HEMATOCRIT 40.1 % (36.0-47.0); HEMOGLOBIN 13.2 g/dL (12.0-15.5); HGB HCT DIFFERENCE -0.5; MEAN CORPUSCULAR HEMOGLOBIN 31.1 pg (27.0-33.4); MEAN CORPUSCULAR HGB CONC 32.9 g/dL (32.0-36.0); MEAN CORPUSCULAR VOLUME 94 fl (80-97); RED BLOOD COUNT 4.25 10^6/uL (3.72-5.28); RED CELL DISTRIBUTION WIDTH 14.1 % (11.5-14.0); WHITE BLOOD COUNT 13.3 10^3/uL (4.0-10.5)
[2016-07-29 05:10] LABS: ANION GAP 5 (5-19); BLOOD UREA NITROGEN 13 mg/dL (7-20); CALCIUM 9.3 mg/dL (8.4-10.2); CARBON DIOXIDE 26 mmol/L (22-30); CHLORIDE 110 mmol/L (98-107); CREATININE RESULT 0.66 mg/dL (0.52-1.25); GLUCOSE 134 mg/dL (75-110); MAGNESIUM 2.4 mg/dL (1.6-2.3); POTASSIUM 4.6 mmol/L (3.6-5.0); SODIUM 141.4 mmol/L (137-145)
[2016-07-29] MEDS: METHYLPREDNISOLONE INJ 125 MG/2 ML SDV IV SCH ×3 (05:20→21:21)
[2016-07-29] MEDS: CEFTAZIDIME PENTAHYDRATE 1 GM in DEXTROSE 5%-WATER 50 ML IV SCH ×3 (05:20→21:22)
[2016-07-29] MEDS: LANSOPRAZOLE 15 MG TAB.RAP.DR NG SCH ×2 (05:20→17:12)
[2016-07-29 05:47] LABS: ARTERIAL BLOOD BASE EXCESS 0.6 mmol/L; ARTERIAL BLOOD O2 SATURATION 94.1 % (94-98)
[2016-07-29] MEDS: ENOXAPARIN SODIUM INJ 40 MG/0.4 ML DISP.SYRIN SUBCUT SCH (07:47)
[2016-07-29] MEDS: LORAZEPAM INJ 2 MG/1 ML VIAL IV PRN ×3 (07:47→21:55)
[2016-07-29] MEDS: AMLODIPINE BESYLATE 2.5 MG TABLET NG SCH ×2 (10:23→21:21)
[2016-07-29] MEDS: NICOTINE 21 MG/24 HR PATCH.TD24 TD SCH (10:24)
[2016-07-29] MEDS: NORMAL SALINE 1000 ML 1,000 ML IV PRN (10:24)
[2016-07-29] MEDS ORDERED: INSULIN LISPRO 100 UNIT/ML 3 ML VIAL SUBCUT PRN (13:55)
[2016-07-29] MEDS ORDERED: DEXTROSE 40% GEL 15 GM TUBE PO PRN (13:55)
[2016-07-29] MEDS ORDERED: GLUCAGON,HUMAN RECOMB 1 MG INJ IM PRN (13:55)
[2016-07-29] MEDS ORDERED: DEXTROSE 50%-WATER SYRINGE 25 GM/50 ML DOSE IV PRN (13:55)
[2016-07-29] MEDS ORDERED: DEXTROSE 40% GEL 15 GM TUBE X 2 PO PRN (13:55)
[2016-07-29] MEDS ORDERED: DEXTROSE 50%-WATER SYRINGE 12.5 GM/25 ML DOSE IV PRN (13:55)
--- NOTE | 2016-07-29 16:38 | PDOC PROGRESS REPORT ---
Subjective Progress Note for:: 07/29/16 Subjective:: Patient on mechanical ventilation, intubated and sedated Physical Exam Vital Signs: Temp Pulse Resp BP Pulse Ox 97.9 F 93 20 117/64 91 L 07/29/16 16:00 07/29/16 16:00 07/29/16 16:00 07/29/16 16:00 07/29/16 16:00 Intake & Output 07/28/16 07/29/16 07/30/16 06:59 06:59 06:59 Intake Total 2181 3786 Output Total 2410 2135 465 Balance -229 1651 -465 Weight 69 kg 69 kg Eye exam: PRESENT: PERRLA Respiratory exam: PRESENT: crackles Cardiovascular exam: PRESENT: +S1, +S2 GI/Abdominal exam: PRESENT: soft Results Laboratory Results: 07/29/16 04:33 07/29/16 04:33 07/29/16 07/29/16 07/29/16 04:33 04:33 05:35 WBC 13.3 H RBC 4.25 Hgb 13.2 Hct 40.1 MCV 94 MCH 31.1 MCHC 32.9 RDW 14.1 H Plt Count 176 Carbonic Acid 1.47 H HCO3/H2CO3 Ratio 18:1 ABG pH 7.36 ABG pCO2 48.7 H ABG pO2 73.4 L ABG HCO3 26.7 H ABG O2 Saturation 94.1 ABG Base Excess 0.6 FiO2 30% Sodium 141.4 Potassium 4.6 Chloride 110 H Carbon Dioxide 26 Anion Gap 5 BUN 13 Creatinine 0.66 Est GFR ( Amer) > 60 Est GFR (Non-Af Amer) > 60 Glucose 134 H Calcium 9.3 Magnesium 2.4 H 07/26/16 13:45 NT-Pro-B Natriuret Pep 169 Impressions: Chest/Abdomen CTA 07/26/16 00:00 IMPRESSION: NORMAL CTA OF THE CHEST. NO PULMONARY EMBOLI. EMPHYSEMATOUS CHANGES WITH CHRONIC SCARRING. NO ACUTE FINDINGS. Chest X-Ray 07/27/16 00:08 IMPRESSION: No acute radiographic finding in the chest. Emphysema. Support devices in expected locations. Assessment & Plan - Diagnosis (1) Pneumonia due to Klebsiella pneumoniae Qualifiers: Laterality: unspecified laterality Lung location: unspecified part of lung Qualified Code(s): J15.0 - Pneumonia due to Klebsiella pneumoniae Is this a current diagnosis for this admission?: YesPlan: Continue IV antibiotic (2) Respiratory failure with hypoxia and hypercapnia Qualifiers: Chronicity: acute on chronic Qualified Code(s): J96.21 - Acute and chronic respiratory failure with hypoxia; J96.22 - Acute and chronic respiratory failure with hypercapnia Is this a current diagnosis for this admission?: YesPlan: Continue mechanical ventilation, tube feeding will be initiated
[2016-07-29] MEDS: SIMVASTATIN 10 MG TABLET NG SCH (17:12)
[2016-07-29] MEDS: CETIRIZINE 5 MG TABLET NG SCH (17:13)
[2016-07-29] MEDS: ACETAMINOPHEN SOLN 325 MG/10.15 ML UDCUP NG PRN (20:07)
[2016-07-29] MEDS: MONTELUKAST SODIUM 10 MG TABLET NG SCH (21:21)
[2016-07-29] MEDS: ZOLPIDEM TARTRATE 5 MG TABLET NG SCH (21:21)
[2016-07-29] MEDS: IPRATROPIUM/ALBUTEROL 0.5-2.5 MG/3 ML AMPUL NEB PRN (21:35)
[2016-07-30] MEDS: IPRATROPIUM/ALBUTEROL 0.5-2.5 MG/3 ML AMPUL NEB SCH ×6 (03:40→23:49)
[2016-07-30] MEDS: NORMAL SALINE 1000 ML 1,000 ML IV PRN ×2 (06:05→23:51)
[2016-07-30] MEDS: METHYLPREDNISOLONE INJ 125 MG/2 ML SDV IV SCH ×3 (06:07→21:24)
[2016-07-30] MEDS: LANSOPRAZOLE 15 MG TAB.RAP.DR NG SCH ×2 (06:07→16:45)
[2016-07-30] MEDS: CEFTAZIDIME PENTAHYDRATE 1 GM in DEXTROSE 5%-WATER 50 ML IV SCH ×3 (06:07→21:24)
[2016-07-30] MEDS: PROPOFOL 100 ML IV PRN ×5 (06:08→20:32)
[2016-07-30 06:46] LABS: ARTERIAL BLOOD BASE EXCESS 2.3 mmol/L; ARTERIAL BLOOD O2 SATURATION 93.5 % (94-98)
[2016-07-30 07:36] LABS: HEMATOCRIT 38.9 % (36.0-47.0); HGB HCT DIFFERENCE 0.1; MEAN CORPUSCULAR HEMOGLOBIN 31.8 pg (27.0-33.4); MEAN CORPUSCULAR HGB CONC 33.3 g/dL (32.0-36.0); MEAN CORPUSCULAR VOLUME 96 fl (80-97); RED BLOOD COUNT 4.08 10^6/uL (3.72-5.28); RED CELL DISTRIBUTION WIDTH 14.3 % (11.5-14.0); WHITE BLOOD COUNT 9.4 10^3/uL (4.0-10.5)
[2016-07-30 07:43] LABS: ANION GAP 7 (5-19); BLOOD UREA NITROGEN 20 mg/dL (7-20); CALCIUM 9.1 mg/dL (8.4-10.2); CARBON DIOXIDE 28 mmol/L (22-30); CHLORIDE 108 mmol/L (98-107); GLUCOSE 103 mg/dL (75-110); POTASSIUM 4.9 mmol/L (3.6-5.0); SODIUM 143.3 mmol/L (137-145)
[2016-07-30 08:02] LABS: BAND NEUTROPHILS % (MANUAL) 5 % (3-5); BASOPHILS % (MANUAL) 0 % (0-2); EOSINOPHILS % (MANUAL) 0 % (0-6); LYMPHOCYTES % (MANUAL) 1 % (13-45); TOTAL CELLS COUNTED 100
[2016-07-30 08:03] LABS: RBC MORPHOLOGY COMMENT NORMO-CYTIC/CHROMIC
[2016-07-30] MEDS: NICOTINE 21 MG/24 HR PATCH.TD24 TD SCH (09:24)
[2016-07-30] MEDS: ENOXAPARIN SODIUM INJ 40 MG/0.4 ML DISP.SYRIN SUBCUT SCH (09:24)
[2016-07-30] MEDS: AMLODIPINE BESYLATE 2.5 MG TABLET NG SCH ×2 (09:25→21:23)
[2016-07-30] MEDS: DEXTROSE 5%-WATER 250 ML with PHENYLEPHRINE HCL 40 MG IV PRN ×2 (12:55)
[2016-07-30] MEDS: SIMVASTATIN 10 MG TABLET NG SCH (17:25)
[2016-07-30] MEDS: CETIRIZINE 5 MG TABLET NG SCH (17:26)
--- NOTE | 2016-07-30 17:29 | PDOC PROGRESS REPORT ---
Subjective Progress Note for:: 07/30/16 Subjective:: Patient is intubated on mechanical ventilation Physical Exam Vital Signs: Temp Pulse Resp BP Pulse Ox 97.9 F 75 16 153/69 H 95 07/30/16 16:27 07/30/16 16:27 07/30/16 16:27 07/30/16 16:27 07/30/16 16:27 Intake & Output 07/29/16 07/30/16 07/31/16 06:59 06:59 06:59 Intake Total 3786 2463 1173 Output Total 2135 1435 730 Balance 1651 1028 443 Weight 69 kg 70.1 kg Eye exam: PRESENT: PERRLA Respiratory exam: PRESENT: crackles Cardiovascular exam: PRESENT: +S1, +S2 GI/Abdominal exam: PRESENT: soft Results Laboratory Results: 07/30/16 04:42 07/30/16 04:42 07/30/16 07/30/16 07/30/16 04:42 04:42 06:30 WBC 9.4 RBC 4.08 Hgb 13.0 Hct 38.9 MCV 96 MCH 31.8 MCHC 33.3 RDW 14.3 H Plt Count 163 Seg Neutrophils % Not Reportable Lymphocytes % Not Reportable Monocytes % Not Reportable Eosinophils % Not Reportable Basophils % Not Reportable Absolute Neutrophils Not Reportable Absolute Lymphocytes Not Reportable Absolute Monocytes Not Reportable Absolute Eosinophils Not Reportable Absolute Basophils Not Reportable Carbonic Acid 1.54 H HCO3/H2CO3 Ratio 18:1 ABG pH 7.37 ABG pCO2 51.0 H ABG pO2 70.7 L ABG HCO3 28.6 H ABG O2 Saturation 93.5 L ABG Base Excess 2.3 FiO2 35% Sodium 143.3 Potassium 4.9 Chloride 108 H Carbon Dioxide 28 Anion Gap 7 BUN 20 Creatinine 0.60 Est GFR ( Amer) > 60 Est GFR (Non-Af Amer) > 60 Glucose 103 Calcium 9.1 07/26/16 13:45 NT-Pro-B Natriuret Pep 169 Impressions: Chest/Abdomen CTA 07/26/16 00:00 IMPRESSION: NORMAL CTA OF THE CHEST. NO PULMONARY EMBOLI. EMPHYSEMATOUS CHANGES WITH CHRONIC SCARRING. NO ACUTE FINDINGS. Chest X-Ray 07/30/16 06:00 IMPRESSION: Support lines and tubes remain in place. Basilar airspace disease has resolved. Assessment & Plan - Diagnosis (1) Pneumonia due to Klebsiella pneumoniae Qualifiers: Laterality: unspecified laterality Lung location: unspecified part of lung Qualified Code(s): J15.0 - Pneumonia due to Klebsiella pneumoniae Is this a current diagnosis for this admission?: YesPlan: Continue IV antibiotic (2) Respiratory failure with hypoxia and hypercapnia Qualifiers: Chronicity: acute on chronic Qualified Code(s): J96.21 - Acute and chronic respiratory failure with hypoxia; J96.22 - Acute and chronic respiratory failure with hypercapnia Is this a current diagnosis for this admission?: YesPlan: Continue mechanical ventilation, tube feeding will be initiated
[2016-07-30] MEDS: MONTELUKAST SODIUM 10 MG TABLET NG SCH (21:24)
[2016-07-30] MEDS: ZOLPIDEM TARTRATE 5 MG TABLET NG SCH (21:24)
[2016-07-30] MEDS: IPRATROPIUM/ALBUTEROL 0.5-2.5 MG/3 ML AMPUL NEB PRN (21:29)
[2016-07-31] MEDS: PROPOFOL 100 ML IV PRN ×6 (01:11→22:34)
[2016-07-31] MEDS: LORAZEPAM INJ 2 MG/1 ML VIAL IV PRN ×2 (02:23→08:04)
[2016-07-31] MEDS: IPRATROPIUM/ALBUTEROL 0.5-2.5 MG/3 ML AMPUL NEB SCH ×5 (04:11→20:35)
[2016-07-31 04:51] LABS: HEMATOCRIT 37.4 % (36.0-47.0); HEMOGLOBIN 12.6 g/dL (12.0-15.5); HGB HCT DIFFERENCE 0.4; MEAN CORPUSCULAR HEMOGLOBIN 31.6 pg (27.0-33.4); MEAN CORPUSCULAR HGB CONC 33.6 g/dL (32.0-36.0); MEAN CORPUSCULAR VOLUME 94 fl (80-97); RED BLOOD COUNT 3.98 10^6/uL (3.72-5.28); RED CELL DISTRIBUTION WIDTH 14.1 % (11.5-14.0); WHITE BLOOD COUNT 7.7 10^3/uL (4.0-10.5)
[2016-07-31] MEDS: CEFTAZIDIME PENTAHYDRATE 1 GM in DEXTROSE 5%-WATER 50 ML IV SCH ×3 (05:13→21:14)
[2016-07-31] MEDS: LANSOPRAZOLE 15 MG TAB.RAP.DR NG SCH ×2 (05:13→17:09)
[2016-07-31] MEDS: METHYLPREDNISOLONE INJ 125 MG/2 ML SDV IV SCH ×3 (05:13→21:14)
[2016-07-31 05:14] LABS: ALANINE AMINOTRANSFERASE 93 U/L (9-52); ALBUMIN 2.6 g/dL (3.5-5.0); ALKALINE PHOSPHATASE 44 U/L (38-126); ASPARTATE AMINO TRANSFERASE 67 U/L (14-36); BILIRUBIN,TOTAL 0.3 mg/dL (0.2-1.3); BLOOD UREA NITROGEN 26 mg/dL (7-20); GLUCOSE 115 mg/dL (75-110); TOTAL PROTEIN 5.2 g/dL (6.3-8.2)
[2016-07-31 05:25] LABS: CARBON DIOXIDE 32 mmol/L (22-30); CHLORIDE 106 mmol/L (98-107); POTASSIUM 4.9 mmol/L (3.6-5.0); SODIUM 142.1 mmol/L (137-145)
[2016-07-31 05:27] LABS: ANION GAP 4 (5-19)
[2016-07-31 05:49] LABS: ARTERIAL BLOOD BASE EXCESS 4.7 mmol/L; ARTERIAL BLOOD O2 SATURATION 90.9 % (94-98)
[2016-07-31] MEDS: ENOXAPARIN SODIUM INJ 40 MG/0.4 ML DISP.SYRIN SUBCUT SCH (07:32)
--- NOTE | 2016-07-31 08:12 | PDOC PROGRESS REPORT ---
Subjective Progress Note for:: 07/31/16 Subjective:: ASIS is still intubated and still under sedation over the weekend nothing change patient's abdomen is distended and LFTs slightly elevated today. Physical Exam Vital Signs: Temp Pulse Resp BP Pulse Ox 98.8 F 95 18 120/58 L 92 07/31/16 08:00 07/31/16 08:00 07/31/16 08:00 07/31/16 08:00 07/31/16 08:00 Intake & Output 07/30/16 07/31/16 08/01/16 06:59 06:59 06:59 Intake Total 2463 2649 Output Total 1435 1670 Balance 1028 979 Weight 70.1 kg 71.7 kg General appearance: PRESENT: no acute distress Head exam: PRESENT: normocephalic Eye exam: PRESENT: PERRLA Mouth exam: PRESENT: neck supple Respiratory exam: PRESENT: decreased breath sounds Cardiovascular exam: PRESENT: +S1, +S2 GI/Abdominal exam: PRESENT: diminished bowel sounds, distended, soft Extremities exam: ABSENT: pedal edema Additional comments: Currently intubated Results Laboratory Results: 07/31/16 04:28 07/31/16 04:28 07/31/16 07/31/16 07/31/16 04:28 04:28 05:30 WBC 7.7 RBC 3.98 Hgb 12.6 Hct 37.4 MCV 94 MCH 31.6 MCHC 33.6 RDW 14.1 H Plt Count 159 Carbonic Acid 1.61 H HCO3/H2CO3 Ratio 19:1 ABG pH 7.38 ABG pCO2 53.5 H ABG pO2 61.8 L ABG HCO3 31.1 H ABG O2 Saturation 90.9 L ABG Base Excess 4.7 FiO2 35% Sodium 142.1 Potassium 4.9 Chloride 106 Carbon Dioxide 32 H Anion Gap 4 L BUN 26 H Creatinine 0.60 Est GFR ( Amer) > 60 Est GFR (Non-Af Amer) > 60 Glucose 115 H Calcium 9.0 Total Bilirubin 0.3 AST 67 H ALT 93 H Alkaline Phosphatase 44 Total Protein 5.2 L Albumin 2.6 L 07/26/16 13:45 NT-Pro-B Natriuret Pep 169 Impressions: Chest/Abdomen CTA 07/26/16 00:00 IMPRESSION: NORMAL CTA OF THE CHEST. NO PULMONARY EMBOLI. EMPHYSEMATOUS CHANGES WITH CHRONIC SCARRING. NO ACUTE FINDINGS. KUB X-Ray 07/31/16 00:00 IMPRESSION: Good position of nasogastric tube. No obstruction. Chest X-Ray 07/31/16 06:00 IMPRESSION: STABLE APPEARANCE OF THE CHEST. SUPPORT DEVICES UNCHANGED. Assessment & Plan - Diagnosis (1) Fever Qualifiers: Fever type: unspecified Qualified Code(s): R50.9 - Fever, unspecified Is this a current diagnosis for this admission?: Yes (2) COPD with acute bronchitis Is this a current diagnosis for this admission?: Yes (3) Hypoxia Is this a current diagnosis for this admission?: YesPlan: From emphysema (4) Coronary artery disease Qualifiers: Coronary Disease-Associated Artery/Lesion type: unspecified vessel or lesion type Is this a current diagnosis for this admission?: YesPlan: At the EKG the patient's denied any coronary symptoms (5) Hypertension Qualifiers: Hypertension type: essential hypertension Qualified Code(s): I10 - Essential (primary) hypertension Is this a current diagnosis for this admission?: YesPlan: Continues the current medications (6) Depression Qualifiers: Depression Type: major depressive disorder Is this a current diagnosis for this admission?: Yes (7) Smoker Is this a current diagnosis for this admission?: Yes (8) Respiratory failure with hypoxia and hypercapnia Qualifiers: Chronicity: acute on chronic Qualified Code(s): J96.21 - Acute and chronic respiratory failure with hypoxia; J96.22 - Acute and chronic respiratory failure with hypercapnia Is this a current diagnosis for this admission?: YesPlan: Continues currently on the pulmonary management (9) Pneumonia due to Klebsiella pneumoniae Qualifiers: Lung location: unspecified part of lung Is this a current diagnosis for this admission?: YesPlan: Continues IV antibiotic (10) Abdominal distention Is this a current diagnosis for this admission?: YesPlan: Most likely a possible ileus we will get the CT abdomen and pelvis without contrast - Time Time Spent with patient: 15-24 minutes Critical Time spent with patient: 15-24 minutes Medications reviewed and adjusted accordingly: Yes Anticipated discharge: Other - Inpatient Certification Medical Necessity: Need Close Monitoring Due to Risk of Patient Decompensation, Need for IV Antibiotics 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
[2016-07-31] MEDS: NICOTINE 21 MG/24 HR PATCH.TD24 TD SCH (10:04)
[2016-07-31] MEDS: AMLODIPINE BESYLATE 2.5 MG TABLET NG SCH ×2 (10:05→21:15)
[2016-07-31] MEDS: NORMAL SALINE 500 ML with ROCURONIUM BROMIDE 500 MG IV PRN ×2 (10:36)
--- NOTE | 2016-07-31 11:55 | PDOC PROGRESS REPORT ---
Subjective Progress Note for:: 07/29/16 Subjective:: intubated Physical Exam Vital Signs: Temp Pulse Resp BP Pulse Ox 97.9 F 78 16 102/53 L 93 07/29/16 08:07 07/29/16 08:23 07/29/16 08:23 07/29/16 08:07 07/29/16 08:23 Intake & Output 07/28/16 07/29/16 07/30/16 06:59 06:59 06:59 Intake Total 2181 3786 Output Total 2410 2135 25 Balance -229 1651 -25 Weight 69 kg 69 kg General appearance: PRESENT: disheveled, well-developed, well-nourished Head exam: PRESENT: atraumatic, normocephalic Eye exam: PRESENT: conjunctiva pale Mouth exam: PRESENT: neck supple, tongue midline, other - ET tube in place Neck exam: ABSENT: carotid bruit, JVD, lymphadenopathy, thyromegaly Respiratory exam: PRESENT: decreased breath sounds, prolonged expiratory phas, rales, rhonchi, symmetrical Cardiovascular exam: PRESENT: RRR, +S1, +S2 Pulses: PRESENT: normal radial pulses GI/Abdominal exam: PRESENT: normal bowel sounds, soft. ABSENT: distended, guarding, mass, organolmegaly, rebound, tenderness Rectal exam: PRESENT: deferred Gentrourinary exam: PRESENT: indwelling catheter Musculoskeletal exam: PRESENT: normal inspection Skin exam: PRESENT: dry, intact, warm Results Laboratory Results: 07/29/16 04:33 07/29/16 04:33 07/29/16 07/29/16 07/29/16 04:33 04:33 05:35 WBC 13.3 H RBC 4.25 Hgb 13.2 Hct 40.1 MCV 94 MCH 31.1 MCHC 32.9 RDW 14.1 H Plt Count 176 Carbonic Acid 1.47 H HCO3/H2CO3 Ratio 18:1 ABG pH 7.36 ABG pCO2 48.7 H ABG pO2 73.4 L ABG HCO3 26.7 H ABG O2 Saturation 94.1 ABG Base Excess 0.6 FiO2 30% Sodium 141.4 Potassium 4.6 Chloride 110 H Carbon Dioxide 26 Anion Gap 5 BUN 13 Creatinine 0.66 Est GFR ( Amer) > 60 Est GFR (Non-Af Amer) > 60 Glucose 134 H Calcium 9.3 Magnesium 2.4 H 07/26/16 13:55 Clean Catch Midstream Urine Culture - Final NO GROWTH 2 DAYS 07/26/16 17:00 Sputum Gram Stain - Final 07/26/16 17:00 Sputum Sputum Culture - Final Klebsiella Pneumoniae Normal Ayla 07/26/16 13:45 NT-Pro-B Natriuret Pep 169 Impressions: Chest/Abdomen CTA 07/26/16 00:00 IMPRESSION: NORMAL CTA OF THE CHEST. NO PULMONARY EMBOLI. EMPHYSEMATOUS CHANGES WITH CHRONIC SCARRING. NO ACUTE FINDINGS. Chest X-Ray 07/27/16 00:08 IMPRESSION: No acute radiographic finding in the chest. Emphysema. Support devices in expected locations. Assessment & Plan - Diagnosis (1) Respiratory failure with hypoxia and hypercapnia Qualifiers: Chronicity: acute on chronic Qualified Code(s): J96.21 - Acute and chronic respiratory failure with hypoxia; J96.22 - Acute and chronic respiratory failure with hypercapnia Is this a current diagnosis for this admission?: YesPlan: ventilation and oxygenation improving (2) Depression Qualifiers: Depression Type: major depressive disorder Is this a current diagnosis for this admission?: YesPlan: Add small dose of Xanax to daily regimen (3) Smoker Is this a current diagnosis for this admission?: YesPlan: Transdermal nicotine patch (4) Pneumonia due to Klebsiella pneumoniae Qualifiers: Lung location: unspecified part of lung Is this a current diagnosis for this admission?: YesPlan: wbc increased - Time Critical Time spent with patient: 25-34 minutes - 30 min
--- NOTE | 2016-07-31 11:58 | PDOC PROGRESS REPORT ---
Subjective Progress Note for:: 07/31/16 Subjective:: intubated Physical Exam Vital Signs: Temp Pulse Resp BP Pulse Ox 99.0 F 95 32 H 154/66 H 92 07/31/16 11:09 07/31/16 08:00 07/31/16 11:09 07/31/16 11:09 07/31/16 11:09 Intake & Output 07/30/16 07/31/16 08/01/16 06:59 06:59 06:59 Intake Total 2463 2649 60 Output Total 1435 1670 210 Balance 1028 979 -150 Weight 70.1 kg 71.7 kg General appearance: PRESENT: well-developed, well-nourished Head exam: PRESENT: atraumatic, normocephalic Eye exam: PRESENT: conjunctiva pale Mouth exam: PRESENT: moist, neck supple, tongue midline, other - Endotracheal tube in place Neck exam: ABSENT: carotid bruit, JVD, lymphadenopathy, thyromegaly Respiratory exam: PRESENT: decreased breath sounds, prolonged expiratory phas, rales, rhonchi, symmetrical Cardiovascular exam: PRESENT: RRR, +S1, +S2 Pulses: PRESENT: normal radial pulses GI/Abdominal exam: PRESENT: ascites Rectal exam: PRESENT: deferred Gentrourinary exam: PRESENT: indwelling catheter Musculoskeletal exam: PRESENT: normal inspection Skin exam: PRESENT: dry, intact, warm Results Laboratory Results: 07/31/16 04:28 07/31/16 04:28 07/31/16 07/31/16 07/31/16 04:28 04:28 05:30 WBC 7.7 RBC 3.98 Hgb 12.6 Hct 37.4 MCV 94 MCH 31.6 MCHC 33.6 RDW 14.1 H Plt Count 159 Carbonic Acid 1.61 H HCO3/H2CO3 Ratio 19:1 ABG pH 7.38 ABG pCO2 53.5 H ABG pO2 61.8 L ABG HCO3 31.1 H ABG O2 Saturation 90.9 L ABG Base Excess 4.7 FiO2 35% Sodium 142.1 Potassium 4.9 Chloride 106 Carbon Dioxide 32 H Anion Gap 4 L BUN 26 H Creatinine 0.60 Est GFR ( Amer) > 60 Est GFR (Non-Af Amer) > 60 Glucose 115 H Calcium 9.0 Total Bilirubin 0.3 AST 67 H ALT 93 H Alkaline Phosphatase 44 Total Protein 5.2 L Albumin 2.6 L 07/26/16 13:45 NT-Pro-B Natriuret Pep 169 Impressions: Chest/Abdomen CTA 07/26/16 00:00 IMPRESSION: NORMAL CTA OF THE CHEST. NO PULMONARY EMBOLI. EMPHYSEMATOUS CHANGES WITH CHRONIC SCARRING. NO ACUTE FINDINGS. KUB X-Ray 07/31/16 00:00 IMPRESSION: Good position of nasogastric tube. No obstruction. Chest X-Ray 07/31/16 06:00 IMPRESSION: STABLE APPEARANCE OF THE CHEST. SUPPORT DEVICES UNCHANGED. Assessment & Plan - Diagnosis (1) Respiratory failure with hypoxia and hypercapnia Qualifiers: Chronicity: acute on chronic Qualified Code(s): J96.21 - Acute and chronic respiratory failure with hypoxia; J96.22 - Acute and chronic respiratory failure with hypercapnia Is this a current diagnosis for this admission?: YesPlan: Patient unable to sustain pressure support and CPAP hyperlucency and chest x- rays just air-trapping with subsequent compression of lower lobes with lower tidal volumes and decrease inspiratory time (2) Depression Qualifiers: Depression Type: major depressive disorder Is this a current diagnosis for this admission?: YesPlan: Add small dose of Xanax to daily regimen (3) Smoker Is this a current diagnosis for this admission?: YesPlan: Transdermal nicotine patch (4) Pneumonia due to Klebsiella pneumoniae Qualifiers: Lung location: unspecified part of lung Is this a current diagnosis for this admission?: YesPlan: wbc increased - Time Critical Time spent with patient: 35 or more minutes - 35 minutes
[2016-07-31] MEDS: SIMVASTATIN 10 MG TABLET NG SCH (17:09)
[2016-07-31] MEDS: CETIRIZINE 5 MG TABLET NG SCH (17:10)
[2016-07-31] MEDS: NORMAL SALINE 1000 ML 1,000 ML IV PRN (17:42)
[2016-07-31] MEDS: ZOLPIDEM TARTRATE 5 MG TABLET NG SCH (21:14)
[2016-07-31] MEDS: MONTELUKAST SODIUM 10 MG TABLET NG SCH (21:15)
[2016-08-01] MEDS: IPRATROPIUM/ALBUTEROL 0.5-2.5 MG/3 ML AMPUL NEB SCH ×6 (00:17→19:56)
[2016-08-01] MEDS: PROPOFOL 100 ML IV PRN ×5 (03:16→22:19)
[2016-08-01 04:35] LABS: HEMATOCRIT 38.1 % (36.0-47.0); HEMOGLOBIN 12.6 g/dL (12.0-15.5); HGB HCT DIFFERENCE -0.3; MEAN CORPUSCULAR HEMOGLOBIN 31.1 pg (27.0-33.4); MEAN CORPUSCULAR HGB CONC 33.2 g/dL (32.0-36.0); MEAN CORPUSCULAR VOLUME 94 fl (80-97); RED BLOOD COUNT 4.07 10^6/uL (3.72-5.28); WHITE BLOOD COUNT 7.4 10^3/uL (4.0-10.5)
[2016-08-01] MEDS: NORMAL SALINE 500 ML with ROCURONIUM BROMIDE 500 MG IV PRN ×2 (04:47)
[2016-08-01 04:48] LABS: ALANINE AMINOTRANSFERASE 76 U/L (9-52); ALBUMIN 2.5 g/dL (3.5-5.0); ALKALINE PHOSPHATASE 38 U/L (38-126); ASPARTATE AMINO TRANSFERASE 32 U/L (14-36); BILIRUBIN,TOTAL 0.3 mg/dL (0.2-1.3); BLOOD UREA NITROGEN 27 mg/dL (7-20); CALCIUM 8.8 mg/dL (8.4-10.2); CREATININE RESULT 0.55 mg/dL (0.52-1.25); GLUCOSE 96 mg/dL (75-110); TOTAL PROTEIN 5.2 g/dL (6.3-8.2)
[2016-08-01 05:01] LABS: CARBON DIOXIDE 32 mmol/L (22-30); CHLORIDE 105 mmol/L (98-107); POTASSIUM 4.8 mmol/L (3.6-5.0); SODIUM 140.8 mmol/L (137-145)
[2016-08-01 05:10] LABS: ANION GAP 4 (5-19)
[2016-08-01] MEDS: LANSOPRAZOLE 15 MG TAB.RAP.DR NG SCH ×2 (05:15→17:12)
[2016-08-01] MEDS: METHYLPREDNISOLONE INJ 125 MG/2 ML SDV IV SCH ×3 (05:16→22:19)
[2016-08-01] MEDS: CEFTAZIDIME PENTAHYDRATE 1 GM in DEXTROSE 5%-WATER 50 ML IV SCH ×3 (05:16→22:21)
[2016-08-01 06:13] LABS: ARTERIAL BLOOD BASE EXCESS 5.4 mmol/L; ARTERIAL BLOOD O2 SATURATION 92.1 % (94-98)
[2016-08-01] MEDS: ENOXAPARIN SODIUM INJ 40 MG/0.4 ML DISP.SYRIN SUBCUT SCH (07:19)
[2016-08-01] MEDS: NICOTINE 21 MG/24 HR PATCH.TD24 TD SCH (09:11)
[2016-08-01] MEDS: AMLODIPINE BESYLATE 2.5 MG TABLET NG SCH ×2 (09:11→22:19)
[2016-08-01] MEDS: LORAZEPAM INJ 2 MG/1 ML VIAL IV PRN (10:46)
--- NOTE | 2016-08-01 11:53 | PDOC PROGRESS REPORT ---
Subjective Progress Note for:: 08/01/16 Subjective:: intubated Physical Exam Vital Signs: Temp Pulse Resp BP Pulse Ox 100.4 F 94 24 H 159/69 H 92 08/01/16 08:00 08/01/16 08:18 08/01/16 08:18 08/01/16 08:00 08/01/16 08:18 Intake & Output 07/31/16 08/01/16 08/02/16 06:59 06:59 06:59 Intake Total 2649 2615 Output Total 1670 1505 150 Balance 979 1110 -150 Weight 71.7 kg 71.4 kg General appearance: PRESENT: no acute distress, disheveled, well-developed, well -nourished Head exam: PRESENT: atraumatic, normocephalic Eye exam: PRESENT: conjunctiva pale Mouth exam: PRESENT: dry mucosa, neck supple, tongue midline, other - ET tube in place Neck exam: ABSENT: carotid bruit, JVD, lymphadenopathy, thyromegaly Respiratory exam: PRESENT: decreased breath sounds, prolonged expiratory phas, rhonchi, symmetrical, unlabored, wheezes Cardiovascular exam: PRESENT: RRR, +S1, +S2 Pulses: PRESENT: normal radial pulses GI/Abdominal exam: PRESENT: normal bowel sounds, soft. ABSENT: distended, guarding, mass, organolmegaly, rebound, tenderness Rectal exam: PRESENT: deferred Gentrourinary exam: PRESENT: indwelling catheter Musculoskeletal exam: PRESENT: normal inspection Skin exam: PRESENT: dry, intact, warm Results Laboratory Results: 08/01/16 03:49 08/01/16 03:49 08/01/16 08/01/16 08/01/16 03:49 03:49 05:45 WBC 7.4 RBC 4.07 Hgb 12.6 Hct 38.1 MCV 94 MCH 31.1 MCHC 33.2 RDW 14.0 Plt Count 164 Carbonic Acid 1.36 H HCO3/H2CO3 Ratio 22:1 ABG pH 7.44 ABG pCO2 45.3 H ABG pO2 60.9 L ABG HCO3 30.3 H ABG O2 Saturation 92.1 L ABG Base Excess 5.4 FiO2 40% Sodium 140.8 Potassium 4.8 Chloride 105 Carbon Dioxide 32 H Anion Gap 4 L BUN 27 H Creatinine 0.55 Est GFR ( Amer) > 60 Est GFR (Non-Af Amer) > 60 Glucose 96 Calcium 8.8 Total Bilirubin 0.3 AST 32 ALT 76 H Alkaline Phosphatase 38 Total Protein 5.2 L Albumin 2.5 L 07/26/16 14:55 Blood Blood Culture - Final NO GROWTH IN 5 DAYS 07/26/16 13:45 Blood Blood Culture - Final NO GROWTH IN 5 DAYS 07/26/16 13:45 NT-Pro-B Natriuret Pep 169 Impressions: Chest/Abdomen CTA 07/26/16 00:00 IMPRESSION: NORMAL CTA OF THE CHEST. NO PULMONARY EMBOLI. EMPHYSEMATOUS CHANGES WITH CHRONIC SCARRING. NO ACUTE FINDINGS. Abdomen/Pelvis CT 07/31/16 00:00 IMPRESSION: No acute or suspicious CT findings of the abdomen-pelvis. Small colonic diverticulosis. KUB X-Ray 07/31/16 00:00 IMPRESSION: Good position of nasogastric tube. No obstruction. Chest X-Ray 08/01/16 06:00 IMPRESSION: Minimal residual linear densities in the left lung base most consistent with subsegmental atelectasis. Remaining lung olvera are clear. Other findings as noted above Assessment & Plan - Diagnosis (1) Respiratory failure with hypoxia and hypercapnia Qualifiers: Chronicity: acute on chronic Qualified Code(s): J96.21 - Acute and chronic respiratory failure with hypoxia; J96.22 - Acute and chronic respiratory failure with hypercapnia Is this a current diagnosis for this admission?: YesPlan: Chest x-ray displays significantly less hyperinflation diaphragms remain flattened trial of sedation vacation (2) Depression Qualifiers: Depression Type: major depressive disorder Is this a current diagnosis for this admission?: YesPlan: Add small dose of Xanax to daily regimen (3) Smoker Is this a current diagnosis for this admission?: YesPlan: Transdermal nicotine patch (4) Pneumonia due to Klebsiella pneumoniae Qualifiers: Lung location: unspecified part of lung Is this a current diagnosis for this admission?: YesPlan: wbc increased - Time Critical Time spent with patient: 35 or more minutes - 45 minute
[2016-08-01] MEDS: NORMAL SALINE 1000 ML 1,000 ML IV PRN (12:04)
[2016-08-01 12:06] LABS: ARTERIAL BLOOD BASE EXCESS 4.7 mmol/L; ARTERIAL BLOOD O2 SATURATION 90.7 % (94-98)
--- NOTE | 2016-08-01 12:39 | PDOC PROGRESS REPORT ---
Subjective Progress Note for:: 08/01/16 Subjective:: pt is doing same still intubated ct abd is no acute finding Physical Exam Vital Signs: Temp Pulse Resp BP Pulse Ox 99.0 F 100 26 H 182/74 H 89 L 08/01/16 10:23 08/01/16 10:00 08/01/16 10:23 08/01/16 10:23 08/01/16 10:23 Intake & Output 07/31/16 08/01/16 08/02/16 06:59 06:59 06:59 Intake Total 2649 2615 60 Output Total 1670 1505 500 Balance 979 1110 -440 Weight 71.7 kg 71.4 kg Physical Exam: intubated and under sedation General appearance: PRESENT: no acute distress Eye exam: PRESENT: PERRLA Mouth exam: PRESENT: dry mucosa Respiratory exam: PRESENT: decreased breath sounds Cardiovascular exam: PRESENT: +S1, +S2 GI/Abdominal exam: PRESENT: distended, normal bowel sounds, soft Extremities exam: ABSENT: pedal edema Neurological exam: PRESENT: altered Results Laboratory Results: 08/01/16 03:49 08/01/16 03:49 08/01/16 08/01/16 08/01/16 03:49 03:49 05:45 WBC 7.4 RBC 4.07 Hgb 12.6 Hct 38.1 MCV 94 MCH 31.1 MCHC 33.2 RDW 14.0 Plt Count 164 Carbonic Acid 1.36 H HCO3/H2CO3 Ratio 22:1 ABG pH 7.44 ABG pCO2 45.3 H ABG pO2 60.9 L ABG HCO3 30.3 H ABG O2 Saturation 92.1 L ABG Base Excess 5.4 FiO2 40% Sodium 140.8 Potassium 4.8 Chloride 105 Carbon Dioxide 32 H Anion Gap 4 L BUN 27 H Creatinine 0.55 Est GFR ( Amer) > 60 Est GFR (Non-Af Amer) > 60 Glucose 96 Calcium 8.8 Total Bilirubin 0.3 AST 32 ALT 76 H Alkaline Phosphatase 38 Total Protein 5.2 L Albumin 2.5 L 08/01/16 11:43 WBC RBC Hgb Hct MCV MCH MCHC RDW Plt Count Carbonic Acid 1.79 H HCO3/H2CO3 Ratio 17:1 ABG pH 7.35 ABG pCO2 59.4 H ABG pO2 63.3 L ABG HCO3 32.1 H ABG O2 Saturation 90.7 L ABG Base Excess 4.7 FiO2 40% Sodium Potassium Chloride Carbon Dioxide Anion Gap BUN Creatinine Est GFR ( Amer) Est GFR (Non-Af Amer) Glucose Calcium Total Bilirubin AST ALT Alkaline Phosphatase Total Protein Albumin 07/26/16 14:55 Blood Blood Culture - Final NO GROWTH IN 5 DAYS 07/26/16 13:45 Blood Blood Culture - Final NO GROWTH IN 5 DAYS 07/26/16 13:45 NT-Pro-B Natriuret Pep 169 Impressions: Chest/Abdomen CTA 07/26/16 00:00 IMPRESSION: NORMAL CTA OF THE CHEST. NO PULMONARY EMBOLI. EMPHYSEMATOUS CHANGES WITH CHRONIC SCARRING. NO ACUTE FINDINGS. Abdomen/Pelvis CT 07/31/16 00:00 IMPRESSION: No acute or suspicious CT findings of the abdomen-pelvis. Small colonic diverticulosis. KUB X-Ray 07/31/16 00:00 IMPRESSION: Good position of nasogastric tube. No obstruction. Chest X-Ray 08/01/16 06:00 IMPRESSION: Minimal residual linear densities in the left lung base most consistent with subsegmental atelectasis. Remaining lung olvera are clear. Other findings as noted above Assessment & Plan - Diagnosis (1) Fever Qualifiers: Fever type: unspecified Qualified Code(s): R50.9 - Fever, unspecified Is this a current diagnosis for this admission?: YesPlan: from [facility] (2) COPD with acute bronchitis Is this a current diagnosis for this admission?: YesPlan: Severe emphysema continues the current medications (3) Hypoxia Is this a current diagnosis for this admission?: YesPlan: From emphysema (4) Coronary artery disease Qualifiers: Coronary Disease-Associated Artery/Lesion type: unspecified vessel or lesion type Is this a current diagnosis for this admission?: YesPlan: At the EKG the patient's denied any coronary symptoms (5) Hypertension Qualifiers: Hypertension type: essential hypertension Qualified Code(s): I10 - Essential (primary) hypertension Is this a current diagnosis for this admission?: YesPlan: Continues the current medications (6) Depression Qualifiers: Depression Type: major depressive disorder Is this a current diagnosis for this admission?: YesPlan: Continues the current medications (7) Smoker Is this a current diagnosis for this admission?: YesPlan: Discussed with the patient about smoking cessation (8) Respiratory failure with hypoxia and hypercapnia Qualifiers: Chronicity: acute on chronic Qualified Code(s): J96.21 - Acute and chronic respiratory failure with hypoxia; J96.22 - Acute and chronic respiratory failure with hypercapnia Is this a current diagnosis for this admission?: YesPlan: Continues currently on the pulmonary management (9) Pneumonia due to Klebsiella pneumoniae Qualifiers: Lung location: unspecified part of lung Is this a current diagnosis for this admission?: YesPlan: Continues IV antibiotic (10) Abdominal distention Is this a current diagnosis for this admission?: YesPlan: ct abd neg - Time Time Spent with patient: 15-24 minutes Critical Time spent with patient: 15-24 minutes Medications reviewed and adjusted accordingly: Yes Anticipated discharge: Other - Inpatient Certification Medical Necessity: Significant Comorbidiites Make Outpatient Treatment Too Risky , Need Close Monitoring Due to Risk of Patient Decompensation, Need for IV Antibiotics Post Hospital Care: 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
[2016-08-01] MEDS: SIMVASTATIN 10 MG TABLET NG SCH (17:12)
[2016-08-01] MEDS: CETIRIZINE 5 MG TABLET NG SCH (17:13)
[2016-08-01] MEDS: MONTELUKAST SODIUM 10 MG TABLET NG SCH (22:19)
[2016-08-01] MEDS: ZOLPIDEM TARTRATE 5 MG TABLET NG SCH (22:19)
[2016-08-02] MEDS: IPRATROPIUM/ALBUTEROL 0.5-2.5 MG/3 ML AMPUL NEB SCH ×7 (00:12→23:57)
[2016-08-02] MEDS: PROPOFOL 100 ML IV PRN ×5 (03:13→22:46)
[2016-08-02 04:16] LABS: HEMATOCRIT 37.5 % (36.0-47.0); HEMOGLOBIN 12.5 g/dL (12.0-15.5); MEAN CORPUSCULAR HEMOGLOBIN 31.3 pg (27.0-33.4); MEAN CORPUSCULAR HGB CONC 33.4 g/dL (32.0-36.0); MEAN CORPUSCULAR VOLUME 94 fl (80-97); RED CELL DISTRIBUTION WIDTH 13.8 % (11.5-14.0); WHITE BLOOD COUNT 7.8 10^3/uL (4.0-10.5)
[2016-08-02 04:33] LABS: BLOOD UREA NITROGEN 27 mg/dL (7-20); CALCIUM 8.7 mg/dL (8.4-10.2); CARBON DIOXIDE 35 mmol/L (22-30); CHLORIDE 103 mmol/L (98-107); CREATININE RESULT 0.55 mg/dL (0.52-1.25); GLUCOSE 119 mg/dL (75-110); MAGNESIUM 2.3 mg/dL (1.6-2.3); POTASSIUM 4.7 mmol/L (3.6-5.0); SODIUM 140.9 mmol/L (137-145)
[2016-08-02 04:41] LABS: ANION GAP 3 (5-19)
[2016-08-02] MEDS: NORMAL SALINE 500 ML with ROCURONIUM BROMIDE 500 MG IV PRN ×2 (05:04)
[2016-08-02] MEDS: METHYLPREDNISOLONE INJ 125 MG/2 ML SDV IV SCH ×3 (05:05→21:38)
[2016-08-02] MEDS: NORMAL SALINE 1000 ML 1,000 ML IV PRN ×2 (05:05→18:28)
[2016-08-02] MEDS: LANSOPRAZOLE 15 MG TAB.RAP.DR NG SCH ×2 (05:05→17:23)
[2016-08-02] MEDS: CEFTAZIDIME PENTAHYDRATE 1 GM in DEXTROSE 5%-WATER 50 ML IV SCH ×3 (05:05→21:37)
[2016-08-02 05:10] LABS: ARTERIAL BLOOD BASE EXCESS 8.9 mmol/L; ARTERIAL BLOOD O2 SATURATION 94.5 % (94-98)
--- NOTE | 2016-08-02 07:46 | PDOC PROGRESS REPORT ---
Subjective Progress Note for:: 08/02/16 Subjective:: pt is doing same still intubated ct abd is no acute finding Physical Exam Vital Signs: Temp Pulse Resp BP Pulse Ox 98.4 F 80 20 162/61 H 93 08/02/16 06:09 08/02/16 04:15 08/02/16 06:09 08/02/16 06:09 08/02/16 06:09 Intake & Output 08/01/16 08/02/16 08/03/16 06:59 06:59 06:59 Intake Total 2615 2747 Output Total 1505 0155 Balance 1110 -968 Weight 71.4 kg 72.1 kg Physical Exam: intubated and under sedation General appearance: PRESENT: no acute distress Head exam: PRESENT: normocephalic Eye exam: PRESENT: PERRLA Mouth exam: PRESENT: dry mucosa Respiratory exam: PRESENT: decreased breath sounds Cardiovascular exam: PRESENT: +S1, +S2 GI/Abdominal exam: PRESENT: normal bowel sounds, soft. ABSENT: tenderness Extremities exam: ABSENT: pedal edema Results Laboratory Results: 08/02/16 03:43 08/02/16 03:43 08/01/16 08/02/16 08/02/16 11:43 03:43 03:43 WBC 7.8 RBC 4.00 Hgb 12.5 Hct 37.5 MCV 94 MCH 31.3 MCHC 33.4 RDW 13.8 Plt Count 173 Carbonic Acid 1.79 H HCO3/H2CO3 Ratio 17:1 ABG pH 7.35 ABG pCO2 59.4 H ABG pO2 63.3 L ABG HCO3 32.1 H ABG O2 Saturation 90.7 L ABG Base Excess 4.7 FiO2 40% Sodium 140.9 Potassium 4.7 Chloride 103 Carbon Dioxide 35 H Anion Gap 3 L BUN 27 H Creatinine 0.55 Est GFR ( Amer) > 60 Est GFR (Non-Af Amer) > 60 Glucose 119 H Calcium 8.7 Magnesium 2.3 08/02/16 04:53 WBC RBC Hgb Hct MCV MCH MCHC RDW Plt Count Carbonic Acid 1.78 H HCO3/H2CO3 Ratio 20:1 ABG pH 7.40 ABG pCO2 59.3 H ABG pO2 74.1 L ABG HCO3 35.7 H ABG O2 Saturation 94.5 ABG Base Excess 8.9 FiO2 50% Sodium Potassium Chloride Carbon Dioxide Anion Gap BUN Creatinine Est GFR ( Amer) Est GFR (Non-Af Amer) Glucose Calcium Magnesium 07/26/16 13:45 NT-Pro-B Natriuret Pep 169 Impressions: Chest/Abdomen CTA 07/26/16 00:00 IMPRESSION: NORMAL CTA OF THE CHEST. NO PULMONARY EMBOLI. EMPHYSEMATOUS CHANGES WITH CHRONIC SCARRING. NO ACUTE FINDINGS. Abdomen/Pelvis CT 07/31/16 00:00 IMPRESSION: No acute or suspicious CT findings of the abdomen-pelvis. Small colonic diverticulosis. KUB X-Ray 07/31/16 00:00 IMPRESSION: Good position of nasogastric tube. No obstruction. Chest X-Ray 08/02/16 06:00 IMPRESSION: 1. Support tubes and lines as above. 2. Minimal atelectasis in the left lung base, similar to prior study. No acute changes. Assessment & Plan - Diagnosis (1) Fever Qualifiers: Fever type: unspecified Qualified Code(s): R50.9 - Fever, unspecified Is this a current diagnosis for this admission?: YesPlan: from [facility] (2) COPD with acute bronchitis Is this a current diagnosis for this admission?: YesPlan: cont neb rx (3) Hypoxia Is this a current diagnosis for this admission?: YesPlan: on vent (4) Coronary artery disease Qualifiers: Coronary Disease-Associated Artery/Lesion type: unspecified vessel or lesion type Is this a current diagnosis for this admission?: YesPlan: At the EKG the patient's denied any coronary symptoms (5) Hypertension Qualifiers: Hypertension type: essential hypertension Qualified Code(s): I10 - Essential (primary) hypertension Is this a current diagnosis for this admission?: YesPlan: Continues the current medications (6) Depression Qualifiers: Depression Type: major depressive disorder Is this a current diagnosis for this admission?: YesPlan: Continues the current medications (7) Smoker Is this a current diagnosis for this admission?: Yes (8) Respiratory failure with hypoxia and hypercapnia Qualifiers: Chronicity: acute on chronic Qualified Code(s): J96.21 - Acute and chronic respiratory failure with hypoxia; J96.22 - Acute and chronic respiratory failure with hypercapnia Is this a current diagnosis for this admission?: YesPlan: f/u with pulmonary (9) Pneumonia due to Klebsiella pneumoniae Qualifiers: Lung location: unspecified part of lung Is this a current diagnosis for this admission?: YesPlan: Continues IV antibiotic (10) Abdominal distention Is this a current diagnosis for this admission?: Yes - Time Time Spent with patient: 15-24 minutes Critical Time spent with patient: 15-24 minutes Medications reviewed and adjusted accordingly: Yes Anticipated discharge: Other - Inpatient Certification 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
[2016-08-02] MEDS: LORAZEPAM INJ 2 MG/1 ML VIAL IV PRN ×3 (09:57→18:32)
[2016-08-02] MEDS: AMLODIPINE BESYLATE 2.5 MG TABLET NG SCH ×2 (09:57→21:38)
[2016-08-02] MEDS: ENOXAPARIN SODIUM INJ 40 MG/0.4 ML DISP.SYRIN SUBCUT SCH (09:58)
[2016-08-02] MEDS: NICOTINE 21 MG/24 HR PATCH.TD24 TD SCH (09:58)
--- NOTE | 2016-08-02 11:32 | PDOC PROGRESS REPORT ---
Subjective Progress Note for:: 08/02/16 Subjective:: intubated Physical Exam Vital Signs: Temp Pulse Resp BP Pulse Ox 98.4 F 80 20 162/61 H 93 08/02/16 06:09 08/02/16 04:15 08/02/16 06:09 08/02/16 06:09 08/02/16 06:09 Intake & Output 08/01/16 08/02/16 08/03/16 06:59 06:59 06:59 Intake Total 2615 8282 Output Total 1504 3295 Balance 1110 -968 Weight 71.4 kg 72.1 kg General appearance: PRESENT: no acute distress, disheveled, well-developed, well -nourished Head exam: PRESENT: atraumatic, normocephalic Eye exam: PRESENT: conjunctiva pale Mouth exam: PRESENT: neck supple, other - ET tube in place Neck exam: PRESENT: carotid bruit Respiratory exam: PRESENT: decreased breath sounds, prolonged expiratory phas, rhonchi, symmetrical, unlabored Cardiovascular exam: PRESENT: RRR, +S1, +S2 Pulses: PRESENT: normal radial pulses GI/Abdominal exam: PRESENT: normal bowel sounds, soft. ABSENT: distended, guarding, mass, organolmegaly, rebound, tenderness Rectal exam: PRESENT: deferred Gentrourinary exam: PRESENT: indwelling catheter Musculoskeletal exam: PRESENT: normal inspection Skin exam: PRESENT: dry, intact, warm Results Laboratory Results: 08/02/16 03:43 08/02/16 03:43 08/01/16 08/02/16 08/02/16 11:43 03:43 03:43 WBC 7.8 RBC 4.00 Hgb 12.5 Hct 37.5 MCV 94 MCH 31.3 MCHC 33.4 RDW 13.8 Plt Count 173 Carbonic Acid 1.79 H HCO3/H2CO3 Ratio 17:1 ABG pH 7.35 ABG pCO2 59.4 H ABG pO2 63.3 L ABG HCO3 32.1 H ABG O2 Saturation 90.7 L ABG Base Excess 4.7 FiO2 40% Sodium 140.9 Potassium 4.7 Chloride 103 Carbon Dioxide 35 H Anion Gap 3 L BUN 27 H Creatinine 0.55 Est GFR ( Amer) > 60 Est GFR (Non-Af Amer) > 60 Glucose 119 H Calcium 8.7 Magnesium 2.3 08/02/16 04:53 WBC RBC Hgb Hct MCV MCH MCHC RDW Plt Count Carbonic Acid 1.78 H HCO3/H2CO3 Ratio 20:1 ABG pH 7.40 ABG pCO2 59.3 H ABG pO2 74.1 L ABG HCO3 35.7 H ABG O2 Saturation 94.5 ABG Base Excess 8.9 FiO2 50% Sodium Potassium Chloride Carbon Dioxide Anion Gap BUN Creatinine Est GFR ( Amer) Est GFR (Non-Af Amer) Glucose Calcium Magnesium 07/26/16 13:45 NT-Pro-B Natriuret Pep 169 Impressions: Chest/Abdomen CTA 07/26/16 00:00 IMPRESSION: NORMAL CTA OF THE CHEST. NO PULMONARY EMBOLI. EMPHYSEMATOUS CHANGES WITH CHRONIC SCARRING. NO ACUTE FINDINGS. Abdomen/Pelvis CT 07/31/16 00:00 IMPRESSION: No acute or suspicious CT findings of the abdomen-pelvis. Small colonic diverticulosis. KUB X-Ray 07/31/16 00:00 IMPRESSION: Good position of nasogastric tube. No obstruction. Chest X-Ray 08/02/16 06:00 IMPRESSION: 1. Support tubes and lines as above. 2. Minimal atelectasis in the left lung base, similar to prior study. No acute changes. Assessment & Plan - Diagnosis (1) Respiratory failure with hypoxia and hypercapnia Qualifiers: Chronicity: acute on chronic Qualified Code(s): J96.21 - Acute and chronic respiratory failure with hypoxia; J96.22 - Acute and chronic respiratory failure with hypercapnia Is this a current diagnosis for this admission?: YesPlan: Unable to maintain stable respiratory rate during sedation vacation while on pressure support and CPAP (2) Depression Qualifiers: Depression Type: major depressive disorder Is this a current diagnosis for this admission?: YesPlan: Add small dose of Xanax to daily regimen (3) Smoker Is this a current diagnosis for this admission?: YesPlan: Transdermal nicotine patch (4) Pneumonia due to Klebsiella pneumoniae Qualifiers: Lung location: unspecified part of lung Is this a current diagnosis for this admission?: YesPlan: wbc increased - Time Critical Time spent with patient: 35 or more minutes
[2016-08-02] MEDS: SIMVASTATIN 10 MG TABLET NG SCH (17:23)
[2016-08-02] MEDS: CETIRIZINE 5 MG TABLET NG SCH (17:24)
[2016-08-02] MEDS: MONTELUKAST SODIUM 10 MG TABLET NG SCH (21:38)
[2016-08-02] MEDS: ZOLPIDEM TARTRATE 5 MG TABLET NG SCH (21:38)
[2016-08-03] MEDS: PROPOFOL 100 ML IV PRN ×2 (03:16→08:13)
[2016-08-03] MEDS: IPRATROPIUM/ALBUTEROL 0.5-2.5 MG/3 ML AMPUL NEB SCH ×5 (04:13→20:00)
[2016-08-03 04:58] LABS: ANION GAP 5 (5-19); BLOOD UREA NITROGEN 32 mg/dL (7-20); CALCIUM 8.9 mg/dL (8.4-10.2); CARBON DIOXIDE 35 mmol/L (22-30); CHLORIDE 103 mmol/L (98-107); GLUCOSE 121 mg/dL (75-110); MAGNESIUM 2.3 mg/dL (1.6-2.3); PHOSPHORUS 3.5 mg/dL (2.5-4.5); POTASSIUM 4.6 mmol/L (3.6-5.0); SODIUM 142.8 mmol/L (137-145)
[2016-08-03 05:21] LABS: ARTERIAL BLOOD O2 SATURATION 95.7 % (94-98)
[2016-08-03] MEDS: CEFTAZIDIME PENTAHYDRATE 1 GM in DEXTROSE 5%-WATER 50 ML IV SCH ×3 (05:26→21:00)
[2016-08-03] MEDS: LANSOPRAZOLE 15 MG TAB.RAP.DR NG SCH ×2 (05:26→17:44)
[2016-08-03] MEDS: METHYLPREDNISOLONE INJ 125 MG/2 ML SDV IV SCH (05:27)
[2016-08-03 06:26] LABS: HEMATOCRIT 40.3 % (36.0-47.0); HEMOGLOBIN 13.3 g/dL (12.0-15.5); HGB HCT DIFFERENCE -0.4; MEAN CORPUSCULAR HEMOGLOBIN 31.1 pg (27.0-33.4); MEAN CORPUSCULAR VOLUME 94 fl (80-97); RED BLOOD COUNT 4.27 10^6/uL (3.72-5.28); WHITE BLOOD COUNT 8.6 10^3/uL (4.0-10.5)
[2016-08-03 06:40] LABS: BASOPHILS % (MANUAL) 0 % (0-2); EOSINOPHILS % (MANUAL) 0 % (0-6); LYMPHOCYTES % (MANUAL) 13 % (13-45); TOTAL CELLS COUNTED 100
[2016-08-03 06:42] LABS: ANISOCYTOSIS SLIGHT; HYPOCHROMASIA SLIGHT; OVALOCYTES SLIGHT; POIKILOCYTOSIS 1+; SCHISTOCYTES SLIGHT; TOXIC GRANULATION 1+
[2016-08-03] MEDS: ENOXAPARIN SODIUM INJ 40 MG/0.4 ML DISP.SYRIN SUBCUT SCH (08:06)
--- NOTE | 2016-08-03 08:08 | PDOC PROGRESS REPORT ---
Subjective Progress Note for:: 08/03/16 Subjective:: pt is doing same stil intubated Physical Exam Vital Signs: Temp Pulse Resp BP Pulse Ox 97.5 F 80 20 147/73 H 96 08/03/16 06:11 08/03/16 04:13 08/03/16 06:11 08/03/16 06:11 08/03/16 06:11 Intake & Output 08/02/16 08/03/16 08/04/16 06:59 06:59 06:59 Intake Total 2747 2648 Output Total 3715 2385 Balance -968 263 Weight 72.1 kg 72.9 kg General appearance: PRESENT: no acute distress Head exam: PRESENT: normocephalic Eye exam: PRESENT: PERRLA Mouth exam: PRESENT: neck supple Respiratory exam: PRESENT: decreased breath sounds Cardiovascular exam: PRESENT: +S1, +S2 GI/Abdominal exam: PRESENT: normal bowel sounds, soft. ABSENT: tenderness Extremities exam: ABSENT: pedal edema Neurological exam: PRESENT: other Results Laboratory Results: 08/03/16 05:55 08/03/16 04:29 08/03/16 08/03/16 08/03/16 04:29 04:29 05:08 WBC Cancelled RBC Cancelled Hgb Cancelled Hct Cancelled MCV Cancelled MCH Cancelled MCHC Cancelled RDW Cancelled Plt Count Cancelled Seg Neutrophils % Cancelled Lymphocytes % Cancelled Monocytes % Cancelled Eosinophils % Cancelled Basophils % Cancelled Absolute Neutrophils Cancelled Absolute Lymphocytes Cancelled Absolute Monocytes Cancelled Absolute Eosinophils Cancelled Absolute Basophils Cancelled Carbonic Acid 1.62 H HCO3/H2CO3 Ratio 20:1 ABG pH 7.40 ABG pCO2 53.8 H ABG pO2 80.8 ABG HCO3 32.4 H ABG O2 Saturation 95.7 ABG Base Excess 6.0 FiO2 50% Sodium 142.8 Potassium 4.6 Chloride 103 Carbon Dioxide 35 H Anion Gap 5 BUN 32 H Creatinine 0.50 L Est GFR ( Amer) > 60 Est GFR (Non-Af Amer) > 60 Glucose 121 H Calcium 8.9 Phosphorus 3.5 Magnesium 2.3 08/03/16 05:55 WBC 8.6 RBC 4.27 Hgb 13.3 Hct 40.3 MCV 94 MCH 31.1 MCHC 33.0 RDW 14.0 Plt Count 180 Seg Neutrophils % Not Reportable Lymphocytes % Not Reportable Monocytes % Not Reportable Eosinophils % Not Reportable Basophils % Not Reportable Absolute Neutrophils Not Reportable Absolute Lymphocytes Not Reportable Absolute Monocytes Not Reportable Absolute Eosinophils Not Reportable Absolute Basophils Not Reportable Carbonic Acid HCO3/H2CO3 Ratio ABG pH ABG pCO2 ABG pO2 ABG HCO3 ABG O2 Saturation ABG Base Excess FiO2 Sodium Potassium Chloride Carbon Dioxide Anion Gap BUN Creatinine Est GFR ( Amer) Est GFR (Non-Af Amer) Glucose Calcium Phosphorus Magnesium 07/26/16 13:45 NT-Pro-B Natriuret Pep 169 Impressions: Chest/Abdomen CTA 07/26/16 00:00 IMPRESSION: NORMAL CTA OF THE CHEST. NO PULMONARY EMBOLI. EMPHYSEMATOUS CHANGES WITH CHRONIC SCARRING. NO ACUTE FINDINGS. Abdomen/Pelvis CT 07/31/16 00:00 IMPRESSION: No acute or suspicious CT findings of the abdomen-pelvis. Small colonic diverticulosis. KUB X-Ray 07/31/16 00:00 IMPRESSION: Good position of nasogastric tube. No obstruction. Assessment & Plan - Diagnosis (1) Fever Qualifiers: Fever type: unspecified Qualified Code(s): R50.9 - Fever, unspecified Is this a current diagnosis for this admission?: Yes (2) COPD with acute bronchitis Is this a current diagnosis for this admission?: YesPlan: cont neb rx (3) Hypoxia Is this a current diagnosis for this admission?: YesPlan: on vent (4) Coronary artery disease Qualifiers: Coronary Disease-Associated Artery/Lesion type: unspecified vessel or lesion type Is this a current diagnosis for this admission?: YesPlan: At the EKG the patient's denied any coronary symptoms (5) Hypertension Qualifiers: Hypertension type: essential hypertension Qualified Code(s): I10 - Essential (primary) hypertension Is this a current diagnosis for this admission?: YesPlan: Continues the current medications (6) Depression Qualifiers: Depression Type: major depressive disorder Is this a current diagnosis for this admission?: YesPlan: Continues the current medications (7) Smoker Is this a current diagnosis for this admission?: Yes (8) Respiratory failure with hypoxia and hypercapnia Qualifiers: Chronicity: acute on chronic Qualified Code(s): J96.21 - Acute and chronic respiratory failure with hypoxia; J96.22 - Acute and chronic respiratory failure with hypercapnia Is this a current diagnosis for this admission?: YesPlan: f/u with pulmonary (9) Pneumonia due to Klebsiella pneumoniae Qualifiers: Lung location: unspecified part of lung Is this a current diagnosis for this admission?: YesPlan: Continues IV antibiotic (10) Abdominal distention Is this a current diagnosis for this admission?: Yes - Time Time Spent with patient: 15-24 minutes Critical Time spent with patient: 15-24 minutes Medications reviewed and adjusted accordingly: Yes Anticipated discharge: Other - Inpatient Certification Medical Necessity: Need Close Monitoring Due to Risk of Patient Decompensation, Need for IV Antibiotics Post Hospital Care: D/C Head Of English Documentation - Plan Summary Plan Summary: d/w daughter and f/u with pulmonaRY
--- NOTE | 2016-08-03 09:15 | PDOC PROGRESS REPORT ---
Subjective Progress Note for:: 08/03/16 Subjective:: intubated Physical Exam Vital Signs: Temp Pulse Resp BP Pulse Ox 98.2 F 88 23 H 177/94 H 97 08/03/16 08:41 08/03/16 08:00 08/03/16 08:41 08/03/16 08:41 08/03/16 08:41 Intake & Output 08/02/16 08/03/16 08/04/16 06:59 06:59 06:59 Intake Total 2747 2648 Output Total 3498 3095 Balance -968 263 Weight 72.1 kg 72.9 kg General appearance: PRESENT: no acute distress, well-developed, well-nourished Head exam: PRESENT: normocephalic Eye exam: PRESENT: conjunctiva pale Mouth exam: PRESENT: moist, neck supple, other - ET tube in place Neck exam: ABSENT: carotid bruit, JVD, lymphadenopathy, thyromegaly Respiratory exam: PRESENT: decreased breath sounds, prolonged expiratory phas, rales, rhonchi, symmetrical, unlabored Cardiovascular exam: PRESENT: RRR, +S1, +S2 Pulses: PRESENT: normal radial pulses GI/Abdominal exam: PRESENT: other - sp surgery Rectal exam: PRESENT: deferred Gentrourinary exam: PRESENT: indwelling catheter Musculoskeletal exam: PRESENT: tenderness Skin exam: PRESENT: dry, intact, warm Results Laboratory Results: 08/03/16 05:55 08/03/16 04:29 08/03/16 08/03/16 08/03/16 04:29 04:29 05:08 WBC Cancelled RBC Cancelled Hgb Cancelled Hct Cancelled MCV Cancelled MCH Cancelled MCHC Cancelled RDW Cancelled Plt Count Cancelled Seg Neutrophils % Cancelled Lymphocytes % Cancelled Monocytes % Cancelled Eosinophils % Cancelled Basophils % Cancelled Absolute Neutrophils Cancelled Absolute Lymphocytes Cancelled Absolute Monocytes Cancelled Absolute Eosinophils Cancelled Absolute Basophils Cancelled Carbonic Acid 1.62 H HCO3/H2CO3 Ratio 20:1 ABG pH 7.40 ABG pCO2 53.8 H ABG pO2 80.8 ABG HCO3 32.4 H ABG O2 Saturation 95.7 ABG Base Excess 6.0 FiO2 50% Sodium 142.8 Potassium 4.6 Chloride 103 Carbon Dioxide 35 H Anion Gap 5 BUN 32 H Creatinine 0.50 L Est GFR ( Amer) > 60 Est GFR (Non-Af Amer) > 60 Glucose 121 H Calcium 8.9 Phosphorus 3.5 Magnesium 2.3 08/03/16 05:55 WBC 8.6 RBC 4.27 Hgb 13.3 Hct 40.3 MCV 94 MCH 31.1 MCHC 33.0 RDW 14.0 Plt Count 180 Seg Neutrophils % Not Reportable Lymphocytes % Not Reportable Monocytes % Not Reportable Eosinophils % Not Reportable Basophils % Not Reportable Absolute Neutrophils Not Reportable Absolute Lymphocytes Not Reportable Absolute Monocytes Not Reportable Absolute Eosinophils Not Reportable Absolute Basophils Not Reportable Carbonic Acid HCO3/H2CO3 Ratio ABG pH ABG pCO2 ABG pO2 ABG HCO3 ABG O2 Saturation ABG Base Excess FiO2 Sodium Potassium Chloride Carbon Dioxide Anion Gap BUN Creatinine Est GFR ( Amer) Est GFR (Non-Af Amer) Glucose Calcium Phosphorus Magnesium 07/26/16 13:45 NT-Pro-B Natriuret Pep 169 Impressions: Chest/Abdomen CTA 07/26/16 00:00 IMPRESSION: NORMAL CTA OF THE CHEST. NO PULMONARY EMBOLI. EMPHYSEMATOUS CHANGES WITH CHRONIC SCARRING. NO ACUTE FINDINGS. Abdomen/Pelvis CT 07/31/16 00:00 IMPRESSION: No acute or suspicious CT findings of the abdomen-pelvis. Small colonic diverticulosis. KUB X-Ray 07/31/16 00:00 IMPRESSION: Good position of nasogastric tube. No obstruction. Chest X-Ray 08/03/16 06:00 IMPRESSION: STABLE APPEARANCE OF THE CHEST. SUPPORT DEVICES UNCHANGED. Assessment & Plan - Diagnosis (1) Respiratory failure with hypoxia and hypercapnia Qualifiers: Chronicity: acute on chronic Qualified Code(s): J96.21 - Acute and chronic respiratory failure with hypoxia; J96.22 - Acute and chronic respiratory failure with hypercapnia Is this a current diagnosis for this admission?: Yes (2) Depression Qualifiers: Depression Type: major depressive disorder Is this a current diagnosis for this admission?: YesPlan: Add small dose of Xanax to daily regimen (3) Smoker Is this a current diagnosis for this admission?: YesPlan: Transdermal nicotine patch (4) Pneumonia due to Klebsiella pneumoniae Qualifiers: Lung location: unspecified part of lung Is this a current diagnosis for this admission?: YesPlan: chest physio LLL - Time Critical Time spent with patient: 35 or more minutes - 35 min
[2016-08-03] MEDS: AMLODIPINE BESYLATE 2.5 MG TABLET NG SCH ×2 (10:36→21:00)
[2016-08-03] MEDS: ALBUTEROL SULFATE HFA (90 MCG/PUFF) 200 PUFF/8.5 GM MDI IH SCH (10:38)
[2016-08-03] MEDS: ISOSORBIDE MONONITRATE 30 MG TAB.ER.24H PO SCH (10:38)
[2016-08-03] MEDS: NICOTINE 21 MG/24 HR PATCH.TD24 TD SCH (10:38)
[2016-08-03] MEDS: METHYLPREDNISOLONE INJ 40 MG/1 ML SDV IV SCH ×2 (17:43→21:00)
[2016-08-03] MEDS: SIMVASTATIN 10 MG TABLET NG SCH (17:44)
[2016-08-03] MEDS: CETIRIZINE 5 MG TABLET NG SCH (17:45)
[2016-08-03] MEDS: MONTELUKAST SODIUM 10 MG TABLET NG SCH (21:00)
[2016-08-03] MEDS: ZOLPIDEM TARTRATE 5 MG TABLET NG SCH (21:01)
[2016-08-04] MEDS: IPRATROPIUM/ALBUTEROL 0.5-2.5 MG/3 ML AMPUL NEB SCH ×6 (00:16→20:51)
[2016-08-04] MEDS: PROPOFOL 100 ML IV PRN ×2 (00:59→06:35)
[2016-08-04] MEDS: CEFTAZIDIME PENTAHYDRATE 1 GM in DEXTROSE 5%-WATER 50 ML IV SCH ×3 (05:26→21:36)
[2016-08-04] MEDS: METHYLPREDNISOLONE INJ 40 MG/1 ML SDV IV SCH ×3 (05:26→21:35)
[2016-08-04] MEDS: LANSOPRAZOLE 15 MG TAB.RAP.DR NG SCH ×2 (05:26→17:12)
[2016-08-04 05:31] LABS: HEMATOCRIT 39.3 % (36.0-47.0); HEMOGLOBIN 13.2 g/dL (12.0-15.5); HGB HCT DIFFERENCE 0.3; MEAN CORPUSCULAR HEMOGLOBIN 31.5 pg (27.0-33.4); MEAN CORPUSCULAR HGB CONC 33.7 g/dL (32.0-36.0); MEAN CORPUSCULAR VOLUME 94 fl (80-97); RED CELL DISTRIBUTION WIDTH 13.9 % (11.5-14.0); WHITE BLOOD COUNT 10.8 10^3/uL (4.0-10.5)
[2016-08-04 05:40] LABS: ANION GAP 5 (5-19); BLOOD UREA NITROGEN 32 mg/dL (7-20); CALCIUM 9.2 mg/dL (8.4-10.2); CARBON DIOXIDE 35 mmol/L (22-30); CHLORIDE 103 mmol/L (98-107); CREATININE RESULT 0.49 mg/dL (0.52-1.25); GLUCOSE 81 mg/dL (75-110); MAGNESIUM 2.3 mg/dL (1.6-2.3); SODIUM 142.6 mmol/L (137-145)
[2016-08-04 06:02] LABS: ARTERIAL BLOOD BASE EXCESS 7.5 mmol/L; ARTERIAL BLOOD O2 SATURATION 96.8 % (94-98)
[2016-08-04 06:05] LABS: BASOPHILS % (MANUAL) 0 % (0-2); EOSINOPHILS % (MANUAL) 0 % (0-6); LYMPHOCYTES % (MANUAL) 20 % (13-45); TOTAL CELLS COUNTED 100
[2016-08-04 06:06] LABS: RBC MORPHOLOGY COMMENT NORMO-CYTIC/CHROMIC
--- NOTE | 2016-08-04 08:08 | PDOC PROGRESS REPORT ---
Subjective Progress Note for:: 08/04/16 Subjective:: Patient is doing same still currently intubated Physical Exam Vital Signs: Temp Pulse Resp BP Pulse Ox 97.7 F 73 17 135/66 H 95 08/04/16 06:00 08/04/16 04:24 08/04/16 06:00 08/04/16 05:56 08/04/16 06:00 Intake & Output 08/03/16 08/04/16 08/05/16 06:59 06:59 06:59 Intake Total 2648 765 Output Total 4525 2035 Balance 263 -1270 Weight 72.9 kg 72.9 kg General appearance: PRESENT: no acute distress Head exam: PRESENT: normocephalic Eye exam: PRESENT: PERRLA Mouth exam: PRESENT: neck supple Respiratory exam: PRESENT: decreased breath sounds Cardiovascular exam: PRESENT: +S1, +S2 GI/Abdominal exam: PRESENT: normal bowel sounds, soft. ABSENT: tenderness Extremities exam: ABSENT: pedal edema Neurological exam: PRESENT: other - Currently intubated Results Laboratory Results: 08/04/16 05:18 08/04/16 05:18 08/04/16 08/04/16 08/04/16 05:18 05:18 05:44 WBC 10.8 H RBC 4.20 Hgb 13.2 Hct 39.3 MCV 94 MCH 31.5 MCHC 33.7 RDW 13.9 Plt Count 165 Seg Neutrophils % Not Reportable Lymphocytes % Not Reportable Monocytes % Not Reportable Eosinophils % Not Reportable Basophils % Not Reportable Absolute Neutrophils Not Reportable Absolute Lymphocytes Not Reportable Absolute Monocytes Not Reportable Absolute Eosinophils Not Reportable Absolute Basophils Not Reportable Carbonic Acid 1.42 H HCO3/H2CO3 Ratio 22:1 ABG pH 7.46 H ABG pCO2 47.2 H ABG pO2 85.3 ABG HCO3 32.5 H ABG O2 Saturation 96.8 ABG Base Excess 7.5 FiO2 40% Sodium 142.6 Potassium 4.0 Chloride 103 Carbon Dioxide 35 H Anion Gap 5 BUN 32 H Creatinine 0.49 L Est GFR ( Amer) > 60 Est GFR (Non-Af Amer) > 60 Glucose 81 Calcium 9.2 Magnesium 2.3 07/26/16 13:45 NT-Pro-B Natriuret Pep 169 Impressions: Chest/Abdomen CTA 07/26/16 00:00 IMPRESSION: NORMAL CTA OF THE CHEST. NO PULMONARY EMBOLI. EMPHYSEMATOUS CHANGES WITH CHRONIC SCARRING. NO ACUTE FINDINGS. Abdomen/Pelvis CT 07/31/16 00:00 IMPRESSION: No acute or suspicious CT findings of the abdomen-pelvis. Small colonic diverticulosis. KUB X-Ray 07/31/16 00:00 IMPRESSION: Good position of nasogastric tube. No obstruction. Assessment & Plan - Diagnosis (1) Fever Qualifiers: Fever type: unspecified Qualified Code(s): R50.9 - Fever, unspecified Is this a current diagnosis for this admission?: Yes (2) COPD with acute bronchitis Is this a current diagnosis for this admission?: YesPlan: Continues the current medications did use the IV steroid (3) Hypoxia Is this a current diagnosis for this admission?: YesPlan: on vent (4) Coronary artery disease Qualifiers: Coronary Disease-Associated Artery/Lesion type: unspecified vessel or lesion type Is this a current diagnosis for this admission?: YesPlan: At the EKG the patient's denied any coronary symptoms (5) Hypertension Qualifiers: Hypertension type: essential hypertension Qualified Code(s): I10 - Essential (primary) hypertension Is this a current diagnosis for this admission?: YesPlan: Continues the current medications (6) Depression Qualifiers: Depression Type: major depressive disorder Is this a current diagnosis for this admission?: YesPlan: Continues the current medications (7) Smoker Is this a current diagnosis for this admission?: Yes (8) Respiratory failure with hypoxia and hypercapnia Qualifiers: Chronicity: acute on chronic Qualified Code(s): J96.21 - Acute and chronic respiratory failure with hypoxia; J96.22 - Acute and chronic respiratory failure with hypercapnia Is this a current diagnosis for this admission?: YesPlan: f/u with pulmonary (9) Pneumonia due to Klebsiella pneumoniae Qualifiers: Lung location: unspecified part of lung Is this a current diagnosis for this admission?: YesPlan: Continues IV antibiotic (10) Abdominal distention Is this a current diagnosis for this admission?: Yes - Time Time Spent with patient: 15-24 minutes Medications reviewed and adjusted accordingly: Yes Anticipated discharge: Other - Inpatient Certification Medical Necessity: Significant Comorbidiites Make Outpatient Treatment Too Risky , Need Close Monitoring Due to Risk of Patient Decompensation, Need for IV Antibiotics Post Hospital Care: D/C [facility] Documentation - Plan Summary Plan Summary: Patient's currently still on vent As per discussed with the daughter will continues to follow with the pulmonary
[2016-08-04] MEDS: ENOXAPARIN SODIUM INJ 40 MG/0.4 ML DISP.SYRIN SUBCUT SCH (08:22)
[2016-08-04] MEDS: NICOTINE 21 MG/24 HR PATCH.TD24 TD SCH (10:23)
[2016-08-04] MEDS: AMLODIPINE BESYLATE 2.5 MG TABLET NG SCH ×2 (10:23→21:35)
[2016-08-04] MEDS: NORMAL SALINE 1000 ML 1,000 ML IV PRN (10:29)
[2016-08-04] MEDS ORDERED: DEXAMETHASONE SOD PHOS INJ 10 MG/1 ML VIAL IV ONE (12:00)
[2016-08-04] MEDS: SIMVASTATIN 10 MG TABLET NG SCH (17:12)
[2016-08-04] MEDS: CETIRIZINE 5 MG TABLET NG SCH (17:12)
[2016-08-04] MEDS: ZOLPIDEM TARTRATE 5 MG TABLET NG SCH (21:34)
[2016-08-04] MEDS: MONTELUKAST SODIUM 10 MG TABLET NG SCH (21:34)
[2016-08-05] MEDS: IPRATROPIUM/ALBUTEROL 0.5-2.5 MG/3 ML AMPUL NEB SCH ×6 (00:20→20:17)
[2016-08-05 07:21] LABS: ABSOLUTE BASOPHILS # (AUTO) 0.1 10^3/uL (0.0-0.2); ABSOLUTE LYMPHOCYTES (AUTO) 1.2 10^3/uL (0.5-4.7); ABSOLUTE MONOCYTES (AUTO) 1.6 10^3/uL (0.1-1.4); ABSOLUTE NEUT (AUTO) 11.4 10^3/uL (1.7-8.2); BASOPHILS % (AUTO) 0.7 % (0-2); HEMATOCRIT 42.1 % (36.0-47.0); HEMOGLOBIN 13.9 g/dL (12.0-15.5); HGB HCT DIFFERENCE -0.4; LYMPHOCYTES % (AUTO) 8.3 % (13-45); MEAN CORPUSCULAR HEMOGLOBIN 30.9 pg (27.0-33.4); MEAN CORPUSCULAR HGB CONC 33.1 g/dL (32.0-36.0); MEAN CORPUSCULAR VOLUME 93 fl (80-97); MONOCYTES % (AUTO) 11.2 % (3-13); RED BLOOD COUNT 4.51 10^6/uL (3.72-5.28); RED CELL DISTRIBUTION WIDTH 13.8 % (11.5-14.0); SEGMENTED NEUTROPHILS % (AUTO) 79.8 % (42-78); WHITE BLOOD COUNT 14.3 10^3/uL (4.0-10.5)
[2016-08-05 07:41] LABS: ALANINE AMINOTRANSFERASE 62 U/L (9-52); ALBUMIN 3.7 g/dL (3.5-5.0); ALKALINE PHOSPHATASE 52 U/L (38-126); ANION GAP 10 (5-19); ASPARTATE AMINO TRANSFERASE 29 U/L (14-36); BILIRUBIN,TOTAL 0.8 mg/dL (0.2-1.3); BLOOD UREA NITROGEN 22 mg/dL (7-20); CALCIUM 9.5 mg/dL (8.4-10.2); CARBON DIOXIDE 32 mmol/L (22-30); CHLORIDE 101 mmol/L (98-107); CREATININE RESULT 0.46 mg/dL (0.52-1.25); GLUCOSE 82 mg/dL (75-110); MAGNESIUM 2.2 mg/dL (1.6-2.3); POTASSIUM 3.9 mmol/L (3.6-5.0); SODIUM 143.1 mmol/L (137-145); TOTAL PROTEIN 6.4 g/dL (6.3-8.2)
[2016-08-05] MEDS ORDERED: ZOLPIDEM TARTRATE 5 MG TABLET NG SCH (08:39)
--- NOTE | 2016-08-05 09:00 | PDOC PROGRESS REPORT ---
Subjective Progress Note for:: 08/05/16 Subjective:: Patient was extubated and feeling better this morning asking for the food. Family is on bedside he should otherwise denied any chest pain denied any shortness of the breath Physical Exam Vital Signs: Temp Pulse Resp BP Pulse Ox 98.6 F 88 15 144/75 H 95 08/05/16 07:27 08/05/16 04:04 08/05/16 07:27 08/05/16 07:27 08/05/16 07:27 Intake & Output 08/04/16 08/05/16 08/06/16 06:59 06:59 06:59 Intake Total 765 Output Total 2035 6080 Balance -1270 -6080 Weight 72.9 kg General appearance: PRESENT: no acute distress Head exam: PRESENT: normocephalic Eye exam: PRESENT: PERRLA Mouth exam: PRESENT: neck supple Respiratory exam: PRESENT: clear to auscultation sakshi Cardiovascular exam: PRESENT: +S1, +S2 GI/Abdominal exam: PRESENT: normal bowel sounds, soft Extremities exam: ABSENT: pedal edema Neurological exam: PRESENT: alert, awake, oriented to person, oriented to place Skin exam: PRESENT: dry Results Laboratory Results: 08/05/16 07:06 08/05/16 07:06 08/05/16 08/05/16 07:06 07:06 WBC 14.3 H RBC 4.51 Hgb 13.9 Hct 42.1 MCV 93 MCH 30.9 MCHC 33.1 RDW 13.8 Plt Count 208 Seg Neutrophils % 79.8 H Lymphocytes % 8.3 L Monocytes % 11.2 Eosinophils % 0.0 Basophils % 0.7 Absolute Neutrophils 11.4 H Absolute Lymphocytes 1.2 Absolute Monocytes 1.6 H Absolute Eosinophils 0.0 Absolute Basophils 0.1 Sodium 143.1 Potassium 3.9 Chloride 101 Carbon Dioxide 32 H Anion Gap 10 BUN 22 H Creatinine 0.46 L Est GFR ( Amer) > 60 Est GFR (Non-Af Amer) > 60 Glucose 82 Calcium 9.5 Magnesium 2.2 Total Bilirubin 0.8 AST 29 ALT 62 H Alkaline Phosphatase 52 Total Protein 6.4 Albumin 3.7 07/26/16 13:45 NT-Pro-B Natriuret Pep 169 Impressions: Chest/Abdomen CTA 07/26/16 00:00 IMPRESSION: NORMAL CTA OF THE CHEST. NO PULMONARY EMBOLI. EMPHYSEMATOUS CHANGES WITH CHRONIC SCARRING. NO ACUTE FINDINGS. Abdomen/Pelvis CT 07/31/16 00:00 IMPRESSION: No acute or suspicious CT findings of the abdomen-pelvis. Small colonic diverticulosis. KUB X-Ray 07/31/16 00:00 IMPRESSION: Good position of nasogastric tube. No obstruction. Chest X-Ray 08/05/16 06:00 IMPRESSION: 1. Interval removal of the endotracheal and nasogastric tubes. 2. Stable appearance of the chest in comparison the prior study. Assessment & Plan - Diagnosis (1) Fever Qualifiers: Fever type: unspecified Qualified Code(s): R50.9 - Fever, unspecified Is this a current diagnosis for this admission?: Yes (2) COPD with acute bronchitis Is this a current diagnosis for this admission?: YesPlan: Decrease the IV Solu-Medrol once a day and continue some nebulizer treatments (3) Hypoxia Is this a current diagnosis for this admission?: Yes (4) Coronary artery disease Qualifiers: Coronary Disease-Associated Artery/Lesion type: unspecified vessel or lesion type Is this a current diagnosis for this admission?: YesPlan: At the EKG the patient's denied any coronary symptoms (5) Hypertension Qualifiers: Hypertension type: essential hypertension Qualified Code(s): I10 - Essential (primary) hypertension Is this a current diagnosis for this admission?: YesPlan: Continues the current medications (6) Depression Qualifiers: Depression Type: major depressive disorder Is this a current diagnosis for this admission?: Yes (7) Smoker Is this a current diagnosis for this admission?: Yes (8) Respiratory failure with hypoxia and hypercapnia Qualifiers: Chronicity: acute on chronic Qualified Code(s): J96.21 - Acute and chronic respiratory failure with hypoxia; J96.22 - Acute and chronic respiratory failure with hypercapnia Is this a current diagnosis for this admission?: YesPlan: Currently extubated and on a nasal cannula (9) Pneumonia due to Klebsiella pneumoniae Qualifiers: Lung location: unspecified part of lung Is this a current diagnosis for this admission?: YesPlan: Continues to IV antibiotic (10) Abdominal distention Is this a current diagnosis for this admission?: Yes - Time Time Spent with patient: 15-24 minutes Critical Time spent with patient: 15-24 minutes Medications reviewed and adjusted accordingly: Yes Anticipated discharge: SNF Within: Other - Inpatient Certification Medical Necessity: Need Close Monitoring Due to Risk of Patient Decompensation, Need for IV Antibiotics 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
[2016-08-05] MEDS: ACETAMINOPHEN SOLN 325 MG/10.15 ML UDCUP NG PRN (09:09)
[2016-08-05] MEDS: LANSOPRAZOLE 15 MG TAB.RAP.DR NG SCH ×2 (09:10→17:39)
[2016-08-05] MEDS: AMLODIPINE BESYLATE 2.5 MG TABLET NG SCH ×2 (09:10→21:12)
[2016-08-05] MEDS: CEFTAZIDIME PENTAHYDRATE 1 GM in DEXTROSE 5%-WATER 50 ML IV SCH ×3 (09:11→21:11)
[2016-08-05] MEDS: NICOTINE 21 MG/24 HR PATCH.TD24 TD SCH (09:11)
[2016-08-05] MEDS: ENOXAPARIN SODIUM INJ 40 MG/0.4 ML DISP.SYRIN SUBCUT SCH (09:25)
[2016-08-05] MEDS: METHYLPREDNISOLONE INJ 40 MG/1 ML SDV IV SCH (11:13)
[2016-08-05] MEDS: SIMVASTATIN 10 MG TABLET NG SCH (17:39)
[2016-08-05] MEDS: CETIRIZINE 5 MG TABLET NG SCH (17:39)
--- NOTE | 2016-08-05 18:10 | PDOC PROGRESS REPORT ---
Subjective Progress Note for:: 08/04/16 Subjective:: intubated Physical Exam Vital Signs: Temp Pulse Resp BP Pulse Ox 97.9 F 77 25 H 132/77 H 94 08/04/16 08:00 08/04/16 08:00 08/04/16 08:00 08/04/16 08:00 08/04/16 08:00 Intake & Output 08/03/16 08/04/16 08/05/16 06:59 06:59 06:59 Intake Total 2646 765 Output Total 3863 3015 275 Balance 263 -1270 -275 Weight 72.9 kg 72.9 kg General appearance: PRESENT: disheveled, well-developed, well-nourished Head exam: PRESENT: atraumatic, normocephalic Eye exam: PRESENT: conjunctiva pale Mouth exam: PRESENT: moist, neck supple, tongue midline, other - ET tube Neck exam: ABSENT: carotid bruit, JVD, lymphadenopathy, thyromegaly Respiratory exam: PRESENT: decreased breath sounds, prolonged expiratory phas, rhonchi, symmetrical, unlabored, wheezes Cardiovascular exam: PRESENT: RRR, +S1, +S2 Pulses: PRESENT: normal radial pulses GI/Abdominal exam: PRESENT: normal bowel sounds, soft. ABSENT: distended, guarding, mass, organolmegaly, rebound, tenderness Rectal exam: PRESENT: deferred Gentrourinary exam: PRESENT: indwelling catheter Musculoskeletal exam: PRESENT: normal inspection Neurological exam: PRESENT: awake Skin exam: PRESENT: dry, intact, warm Results Laboratory Results: 08/04/16 05:18 08/04/16 05:18 08/04/16 08/04/16 08/04/16 05:18 05:18 05:44 WBC 10.8 H RBC 4.20 Hgb 13.2 Hct 39.3 MCV 94 MCH 31.5 MCHC 33.7 RDW 13.9 Plt Count 165 Seg Neutrophils % Not Reportable Lymphocytes % Not Reportable Monocytes % Not Reportable Eosinophils % Not Reportable Basophils % Not Reportable Absolute Neutrophils Not Reportable Absolute Lymphocytes Not Reportable Absolute Monocytes Not Reportable Absolute Eosinophils Not Reportable Absolute Basophils Not Reportable Carbonic Acid 1.42 H HCO3/H2CO3 Ratio 22:1 ABG pH 7.46 H ABG pCO2 47.2 H ABG pO2 85.3 ABG HCO3 32.5 H ABG O2 Saturation 96.8 ABG Base Excess 7.5 FiO2 40% Sodium 142.6 Potassium 4.0 Chloride 103 Carbon Dioxide 35 H Anion Gap 5 BUN 32 H Creatinine 0.49 L Est GFR ( Amer) > 60 Est GFR (Non-Af Amer) > 60 Glucose 81 Calcium 9.2 Magnesium 2.3 07/26/16 13:45 NT-Pro-B Natriuret Pep 169 Impressions: Chest/Abdomen CTA 07/26/16 00:00 IMPRESSION: NORMAL CTA OF THE CHEST. NO PULMONARY EMBOLI. EMPHYSEMATOUS CHANGES WITH CHRONIC SCARRING. NO ACUTE FINDINGS. Abdomen/Pelvis CT 07/31/16 00:00 IMPRESSION: No acute or suspicious CT findings of the abdomen-pelvis. Small colonic diverticulosis. KUB X-Ray 07/31/16 00:00 IMPRESSION: Good position of nasogastric tube. No obstruction. Chest X-Ray 08/04/16 06:00 IMPRESSION: STABLE APPEARANCE OF THE CHEST. SUPPORT DEVICES UNCHANGED. Assessment & Plan - Diagnosis (1) Respiratory failure with hypoxia and hypercapnia Qualifiers: Chronicity: acute on chronic Qualified Code(s): J96.21 - Acute and chronic respiratory failure with hypoxia; J96.22 - Acute and chronic respiratory failure with hypercapnia Is this a current diagnosis for this admission?: YesPlan: on ps cpap x 12h min vol,rr,fio2 c/w sucessful extubation will proceed (2) Depression Qualifiers: Depression Type: major depressive disorder Is this a current diagnosis for this admission?: YesPlan: Add small dose of Xanax to daily regimen (3) Smoker Is this a current diagnosis for this admission?: YesPlan: Transdermal nicotine patch (4) Pneumonia due to Klebsiella pneumoniae Qualifiers: Lung location: unspecified part of lung Is this a current diagnosis for this admission?: YesPlan: chest physio LLL - Time Critical Time spent with patient: 35 or more minutes - 55 min extubation
--- NOTE | 2016-08-05 18:16 | PDOC PROGRESS REPORT ---
Subjective Progress Note for:: 08/05/16 Subjective:: 24 hrs s/p extubation Physical Exam Vital Signs: Temp Pulse Resp BP Pulse Ox 98.4 F 80 13 153/79 H 94 08/05/16 08:00 08/05/16 08:00 08/05/16 08:00 08/05/16 08:00 08/05/16 08:00 Intake & Output 08/04/16 08/05/16 08/06/16 06:59 06:59 06:59 Intake Total 765 Output Total 2035 6080 150 Balance -1270 -6080 -150 Weight 72.9 kg General appearance: PRESENT: cooperative, disheveled, well-developed, well- nourished Head exam: PRESENT: atraumatic, normocephalic Eye exam: PRESENT: conjunctiva pale Mouth exam: PRESENT: moist, neck supple, tongue midline Respiratory exam: PRESENT: decreased breath sounds, prolonged expiratory phas, retraction, rhonchi, unlabored Cardiovascular exam: PRESENT: RRR, +S1, +S2 Pulses: PRESENT: normal radial pulses Vascular exam: PRESENT: other GI/Abdominal exam: PRESENT: normal bowel sounds, soft. ABSENT: distended, guarding, mass, organolmegaly, rebound, tenderness Rectal exam: PRESENT: deferred Gentrourinary exam: PRESENT: indwelling catheter Musculoskeletal exam: PRESENT: normal inspection Neurological exam: PRESENT: alert, awake Skin exam: PRESENT: dry, intact Results Laboratory Results: 08/05/16 07:06 08/05/16 07:06 08/05/16 08/05/16 07:06 07:06 WBC 14.3 H RBC 4.51 Hgb 13.9 Hct 42.1 MCV 93 MCH 30.9 MCHC 33.1 RDW 13.8 Plt Count 208 Seg Neutrophils % 79.8 H Lymphocytes % 8.3 L Monocytes % 11.2 Eosinophils % 0.0 Basophils % 0.7 Absolute Neutrophils 11.4 H Absolute Lymphocytes 1.2 Absolute Monocytes 1.6 H Absolute Eosinophils 0.0 Absolute Basophils 0.1 Sodium 143.1 Potassium 3.9 Chloride 101 Carbon Dioxide 32 H Anion Gap 10 BUN 22 H Creatinine 0.46 L Est GFR ( Amer) > 60 Est GFR (Non-Af Amer) > 60 Glucose 82 Calcium 9.5 Magnesium 2.2 Total Bilirubin 0.8 AST 29 ALT 62 H Alkaline Phosphatase 52 Total Protein 6.4 Albumin 3.7 07/26/16 13:45 NT-Pro-B Natriuret Pep 169 Impressions: Chest/Abdomen CTA 07/26/16 00:00 IMPRESSION: NORMAL CTA OF THE CHEST. NO PULMONARY EMBOLI. EMPHYSEMATOUS CHANGES WITH CHRONIC SCARRING. NO ACUTE FINDINGS. Abdomen/Pelvis CT 07/31/16 00:00 IMPRESSION: No acute or suspicious CT findings of the abdomen-pelvis. Small colonic diverticulosis. KUB X-Ray 07/31/16 00:00 IMPRESSION: Good position of nasogastric tube. No obstruction. Chest X-Ray 08/05/16 06:00 IMPRESSION: 1. Interval removal of the endotracheal and nasogastric tubes. 2. Stable appearance of the chest in comparison the prior study. Assessment & Plan - Diagnosis (1) Respiratory failure with hypoxia and hypercapnia Qualifiers: Chronicity: acute on chronic Qualified Code(s): J96.21 - Acute and chronic respiratory failure with hypoxia; J96.22 - Acute and chronic respiratory failure with hypercapnia Is this a current diagnosis for this admission?: YesPlan: stable last 24 hrs s/p extubation (2) Depression Qualifiers: Depression Type: major depressive disorder Is this a current diagnosis for this admission?: YesPlan: Add small dose of Xanax to daily regimen (3) Smoker Is this a current diagnosis for this admission?: YesPlan: Transdermal nicotine patch (4) Pneumonia due to Klebsiella pneumoniae Qualifiers: Lung location: unspecified part of lung Is this a current diagnosis for this admission?: No
[2016-08-05] MEDS: MONTELUKAST SODIUM 10 MG TABLET NG SCH (21:13)
[2016-08-06] MEDS: IPRATROPIUM/ALBUTEROL 0.5-2.5 MG/3 ML AMPUL NEB SCH ×6 (00:26→20:42)
[2016-08-06] MEDS: ACETAMINOPHEN SOLN 325 MG/10.15 ML UDCUP NG PRN (01:15)
[2016-08-06] MEDS: CEFTAZIDIME PENTAHYDRATE 1 GM in DEXTROSE 5%-WATER 50 ML IV SCH ×3 (05:01→21:07)
[2016-08-06] MEDS: LANSOPRAZOLE 15 MG TAB.RAP.DR NG SCH ×2 (05:02→17:59)
[2016-08-06 05:06] LABS: ABSOLUTE BASOPHILS # (AUTO) 0.1 10^3/uL (0.0-0.2); ABSOLUTE EOSINOPHILS # (AUTO) 0.1 10^3/uL (0.0-0.6); ABSOLUTE LYMPHOCYTES (AUTO) 1.9 10^3/uL (0.5-4.7); ABSOLUTE NEUT (AUTO) 10.1 10^3/uL (1.7-8.2); BASOPHILS % (AUTO) 0.7 % (0-2); EOSINOPHILS % (AUTO) 0.8 % (0-6); HEMATOCRIT 41.5 % (36.0-47.0); HEMOGLOBIN 13.9 g/dL (12.0-15.5); HGB HCT DIFFERENCE 0.2; LYMPHOCYTES % (AUTO) 14.6 % (13-45); MEAN CORPUSCULAR HEMOGLOBIN 31.2 pg (27.0-33.4); MEAN CORPUSCULAR HGB CONC 33.4 g/dL (32.0-36.0); MEAN CORPUSCULAR VOLUME 94 fl (80-97); MONOCYTES % (AUTO) 7.6 % (3-13); RED BLOOD COUNT 4.44 10^6/uL (3.72-5.28); RED CELL DISTRIBUTION WIDTH 13.8 % (11.5-14.0); SEGMENTED NEUTROPHILS % (AUTO) 76.3 % (42-78); WHITE BLOOD COUNT 13.2 10^3/uL (4.0-10.5)
[2016-08-06 05:28] LABS: ANION GAP 9 (5-19); BLOOD UREA NITROGEN 16 mg/dL (7-20); CALCIUM 8.9 mg/dL (8.4-10.2); CARBON DIOXIDE 32 mmol/L (22-30); CHLORIDE 102 mmol/L (98-107); CREATININE RESULT 0.42 mg/dL (0.52-1.25); GLUCOSE 80 mg/dL (75-110); POTASSIUM 3.3 mmol/L (3.6-5.0); SODIUM 142.7 mmol/L (137-145)
[2016-08-06] MEDS: AMLODIPINE BESYLATE 2.5 MG TABLET NG SCH ×2 (09:37→21:08)
[2016-08-06] MEDS: METHYLPREDNISOLONE INJ 40 MG/1 ML SDV IV SCH (09:37)
[2016-08-06] MEDS: ENOXAPARIN SODIUM INJ 40 MG/0.4 ML DISP.SYRIN SUBCUT SCH (09:38)
[2016-08-06] MEDS: NICOTINE 21 MG/24 HR PATCH.TD24 TD SCH (09:38)
[2016-08-06] MEDS ORDERED: POTASSIUM CHLORIDE 20 MEQ/15 ML UDCUP PO ONE (10:30)
--- NOTE | 2016-08-06 11:38 | PDOC PROGRESS REPORT ---
Subjective Progress Note for:: 08/06/16 Subjective:: Patient is feeling much better this morning he had any chest pain he had any shortness of the breath and it denied any abdominal pain no nausea no vomiting. Family in the room and discussed with the family about patient's current conditions Physical Exam Vital Signs: Temp Pulse Resp BP Pulse Ox 98.8 F 85 15 164/73 H 91 L 08/06/16 10:00 08/06/16 08:00 08/06/16 10:00 08/06/16 08:21 08/06/16 10:00 Intake & Output 08/05/16 08/06/16 08/07/16 06:59 06:59 06:59 Intake Total 2768 Output Total 6080 4300 400 Balance -6080 -1532 -400 Weight 66.8 kg General appearance: PRESENT: no acute distress, well-developed, well-nourished Head exam: PRESENT: atraumatic, normocephalic Eye exam: PRESENT: conjunctiva pink, EOMI, PERRLA. ABSENT: scleral icterus Ear exam: PRESENT: normal external ear exam Mouth exam: PRESENT: moist, tongue midline Neck exam: PRESENT: full ROM. ABSENT: carotid bruit, JVD, lymphadenopathy, thyromegaly Respiratory exam: PRESENT: clear to auscultation sakshi Cardiovascular exam: PRESENT: RRR. ABSENT: diastolic murmur, rubs, systolic murmur Pulses: PRESENT: normal dorsalis pedis pul, +2 pedal pulses bilateral Vascular exam: PRESENT: normal capillary refill GI/Abdominal exam: PRESENT: normal bowel sounds, soft. ABSENT: distended, guarding, mass, organolmegaly, rebound, tenderness Rectal exam: PRESENT: deferred Neurological exam: PRESENT: alert, awake, oriented to person, oriented to place , oriented to time, oriented to situation, CN II-XII grossly intact. ABSENT: motor sensory deficit Psychiatric exam: PRESENT: appropriate affect, normal mood. ABSENT: homicidal ideation, suicidal ideation Skin exam: PRESENT: dry, intact, warm. ABSENT: cyanosis, rash Results Laboratory Results: 08/06/16 04:36 08/06/16 04:36 08/06/16 08/06/16 04:36 04:36 WBC 13.2 H RBC 4.44 Hgb 13.9 Hct 41.5 MCV 94 MCH 31.2 MCHC 33.4 RDW 13.8 Plt Count 193 Seg Neutrophils % 76.3 Lymphocytes % 14.6 Monocytes % 7.6 Eosinophils % 0.8 Basophils % 0.7 Absolute Neutrophils 10.1 H Absolute Lymphocytes 1.9 Absolute Monocytes 1.0 Absolute Eosinophils 0.1 Absolute Basophils 0.1 Sodium 142.7 Potassium 3.3 L Chloride 102 Carbon Dioxide 32 H Anion Gap 9 BUN 16 Creatinine 0.42 L Est GFR ( Amer) > 60 Est GFR (Non-Af Amer) > 60 Glucose 80 Calcium 8.9 07/26/16 13:45 NT-Pro-B Natriuret Pep 169 Impressions: Chest/Abdomen CTA 07/26/16 00:00 IMPRESSION: NORMAL CTA OF THE CHEST. NO PULMONARY EMBOLI. EMPHYSEMATOUS CHANGES WITH CHRONIC SCARRING. NO ACUTE FINDINGS. Abdomen/Pelvis CT 07/31/16 00:00 IMPRESSION: No acute or suspicious CT findings of the abdomen-pelvis. Small colonic diverticulosis. KUB X-Ray 07/31/16 00:00 IMPRESSION: Good position of nasogastric tube. No obstruction. Chest X-Ray 08/05/16 06:00 IMPRESSION: 1. Interval removal of the endotracheal and nasogastric tubes. 2. Stable appearance of the chest in comparison the prior study. Assessment & Plan - Diagnosis (1) Fever Qualifiers: Fever type: unspecified Qualified Code(s): R50.9 - Fever, unspecified Is this a current diagnosis for this admission?: Yes (2) COPD with acute bronchitis Is this a current diagnosis for this admission?: YesPlan: ALT stable and improving (3) Hypoxia Is this a current diagnosis for this admission?: YesPlan: resolved (4) Coronary artery disease Qualifiers: Coronary Disease-Associated Artery/Lesion type: unspecified vessel or lesion type Is this a current diagnosis for this admission?: YesPlan: At the EKG the patient's denied any coronary symptoms (5) Hypertension Qualifiers: Hypertension type: essential hypertension Qualified Code(s): I10 - Essential (primary) hypertension Is this a current diagnosis for this admission?: YesPlan: Continues the current medications (6) Depression Qualifiers: Depression Type: major depressive disorder Is this a current diagnosis for this admission?: YesPlan: Continues the current medications (7) Smoker Is this a current diagnosis for this admission?: YesPlan: Discussed with the patient about smoking cessation (8) Respiratory failure with hypoxia and hypercapnia Qualifiers: Chronicity: acute on chronic Qualified Code(s): J96.21 - Acute and chronic respiratory failure with hypoxia; J96.22 - Acute and chronic respiratory failure with hypercapnia Is this a current diagnosis for this admission?: YesPlan: Currently extubated and on a nasal cannula (9) Pneumonia due to Klebsiella pneumoniae Qualifiers: Lung location: unspecified part of lung Is this a current diagnosis for this admission?: NoPlan: Continues to IV antibiotic (10) Abdominal distention Is this a current diagnosis for this admission?: Yes - Time Time Spent with patient: 15-24 minutes Medications reviewed and adjusted accordingly: Yes Anticipated discharge: Home, Other Within: Other - Inpatient Certification Medical Necessity: Significant Comorbidiites Make Outpatient Treatment Too Risky , Need for IV Antibiotics Post Hospital Care: D/C [employer] Documentation - Plan Summary Plan Summary: Continuous IV antibiotic and continues the current medications discussed with the daughter about the patient's current conditions
[2016-08-06] MEDS: SIMVASTATIN 10 MG TABLET NG SCH (17:59)
[2016-08-06] MEDS: CETIRIZINE 5 MG TABLET NG SCH (18:00)
[2016-08-06] MEDS: MONTELUKAST SODIUM 10 MG TABLET NG SCH (21:08)
[2016-08-06] MEDS: ZOLPIDEM TARTRATE 5 MG TABLET PO SCH (21:08)
[2016-08-07] MEDS: IPRATROPIUM/ALBUTEROL 0.5-2.5 MG/3 ML AMPUL NEB SCH ×7 (00:05→23:37)
[2016-08-07 04:45] LABS: ABSOLUTE EOSINOPHILS # (AUTO) 0.1 10^3/uL (0.0-0.6); ABSOLUTE LYMPHOCYTES (AUTO) 2.1 10^3/uL (0.5-4.7); ABSOLUTE MONOCYTES (AUTO) 0.9 10^3/uL (0.1-1.4); ABSOLUTE NEUT (AUTO) 8.8 10^3/uL (1.7-8.2); BASOPHILS % (AUTO) 0.3 % (0-2); EOSINOPHILS % (AUTO) 0.9 % (0-6); HEMATOCRIT 41.9 % (36.0-47.0); HEMOGLOBIN 13.8 g/dL (12.0-15.5); HGB HCT DIFFERENCE -0.5; LYMPHOCYTES % (AUTO) 17.7 % (13-45); MEAN CORPUSCULAR HEMOGLOBIN 31.2 pg (27.0-33.4); MEAN CORPUSCULAR HGB CONC 33.1 g/dL (32.0-36.0); MEAN CORPUSCULAR VOLUME 94 fl (80-97); MONOCYTES % (AUTO) 7.8 % (3-13); RED BLOOD COUNT 4.44 10^6/uL (3.72-5.28); RED CELL DISTRIBUTION WIDTH 14.1 % (11.5-14.0); SEGMENTED NEUTROPHILS % (AUTO) 73.3 % (42-78); WHITE BLOOD COUNT 12.1 10^3/uL (4.0-10.5)
[2016-08-07 05:09] LABS: ANION GAP 8 (5-19); BLOOD UREA NITROGEN 18 mg/dL (7-20); CALCIUM 9.2 mg/dL (8.4-10.2); CARBON DIOXIDE 31 mmol/L (22-30); CHLORIDE 104 mmol/L (98-107); CREATININE RESULT 0.47 mg/dL (0.52-1.25); GLUCOSE 86 mg/dL (75-110); POTASSIUM 3.6 mmol/L (3.6-5.0)
[2016-08-07] MEDS: CEFTAZIDIME PENTAHYDRATE 1 GM in DEXTROSE 5%-WATER 50 ML IV SCH ×3 (05:34→21:31)
[2016-08-07] MEDS: LANSOPRAZOLE 15 MG TAB.RAP.DR NG SCH ×2 (05:34→17:07)
[2016-08-07] MEDS: ENOXAPARIN SODIUM INJ 40 MG/0.4 ML DISP.SYRIN SUBCUT SCH (07:45)
[2016-08-07] MEDS: METHYLPREDNISOLONE INJ 40 MG/1 ML SDV IV SCH (09:46)
[2016-08-07] MEDS: NICOTINE 21 MG/24 HR PATCH.TD24 TD SCH (09:46)
[2016-08-07] MEDS: AMLODIPINE BESYLATE 2.5 MG TABLET NG SCH ×2 (09:47→21:32)
--- NOTE | 2016-08-07 15:10 | PDOC PROGRESS REPORT ---
Subjective Progress Note for:: 08/07/16 Subjective:: Patient without complaints Physical Exam Vital Signs: Temp Pulse Resp BP Pulse Ox 99.0 F 89 18 143/58 H 92 08/07/16 12:32 08/07/16 12:09 08/07/16 12:32 08/07/16 12:32 08/07/16 12:32 Intake & Output 08/06/16 08/07/16 08/08/16 06:59 06:59 06:59 Intake Total 2768 1441 320 Output Total 4306 0575 925 Balance -1532 -934 -605 Weight 66.8 kg 65.4 kg General appearance: PRESENT: no acute distress, cooperative, well-developed, well-nourished Head exam: PRESENT: atraumatic, normocephalic Eye exam: PRESENT: conjunctiva pale, EOMI Mouth exam: PRESENT: moist, neck supple, tongue midline Neck exam: ABSENT: carotid bruit, JVD, lymphadenopathy, thyromegaly Respiratory exam: PRESENT: decreased breath sounds, prolonged expiratory phas, rhonchi, symmetrical, unlabored Cardiovascular exam: PRESENT: RRR, +S1, +S2 Pulses: PRESENT: normal radial pulses GI/Abdominal exam: PRESENT: normal bowel sounds, soft. ABSENT: distended, guarding, mass, organolmegaly, rebound, tenderness Rectal exam: PRESENT: deferred Gentrourinary exam: PRESENT: indwelling catheter Musculoskeletal exam: PRESENT: normal inspection Neurological exam: PRESENT: alert, awake Psychiatric exam: PRESENT: normal mood Skin exam: PRESENT: dry, intact Results Laboratory Results: 08/07/16 04:24 08/07/16 04:24 08/07/16 08/07/16 04:24 04:24 WBC 12.1 H RBC 4.44 Hgb 13.8 Hct 41.9 MCV 94 MCH 31.2 MCHC 33.1 RDW 14.1 H Plt Count 184 Seg Neutrophils % 73.3 Lymphocytes % 17.7 Monocytes % 7.8 Eosinophils % 0.9 Basophils % 0.3 Absolute Neutrophils 8.8 H Absolute Lymphocytes 2.1 Absolute Monocytes 0.9 Absolute Eosinophils 0.1 Absolute Basophils 0.0 Sodium 143.0 Potassium 3.6 Chloride 104 Carbon Dioxide 31 H Anion Gap 8 BUN 18 Creatinine 0.47 L Est GFR ( Amer) > 60 Est GFR (Non-Af Amer) > 60 Glucose 86 Calcium 9.2 07/26/16 13:45 NT-Pro-B Natriuret Pep 169 Impressions: Chest/Abdomen CTA 07/26/16 00:00 IMPRESSION: NORMAL CTA OF THE CHEST. NO PULMONARY EMBOLI. EMPHYSEMATOUS CHANGES WITH CHRONIC SCARRING. NO ACUTE FINDINGS. Abdomen/Pelvis CT 07/31/16 00:00 IMPRESSION: No acute or suspicious CT findings of the abdomen-pelvis. Small colonic diverticulosis. KUB X-Ray 07/31/16 00:00 IMPRESSION: Good position of nasogastric tube. No obstruction. Chest X-Ray 08/05/16 06:00 IMPRESSION: 1. Interval removal of the endotracheal and nasogastric tubes. 2. Stable appearance of the chest in comparison the prior study. Assessment & Plan - Diagnosis (1) Respiratory failure with hypoxia and hypercapnia Qualifiers: Chronicity: acute on chronic Qualified Code(s): J96.21 - Acute and chronic respiratory failure with hypoxia; J96.22 - Acute and chronic respiratory failure with hypercapnia Is this a current diagnosis for this admission?: YesPlan: stable (2) Depression Qualifiers: Depression Type: major depressive disorder Is this a current diagnosis for this admission?: YesPlan: Add small dose of Xanax to daily regimen (3) Smoker Is this a current diagnosis for this admission?: YesPlan: Transdermal nicotine patch (4) Pneumonia due to Klebsiella pneumoniae Qualifiers: Lung location: unspecified part of lung Is this a current diagnosis for this admission?: NoPlan: chest physio LLL slight increase in WBC since extubation - Time Critical Time spent with patient: 25-34 minutes - 30 minutes
[2016-08-07] MEDS: CETIRIZINE 5 MG TABLET NG SCH (17:07)
[2016-08-07] MEDS: SIMVASTATIN 10 MG TABLET NG SCH (17:07)
[2016-08-07] MEDS: DOCUSATE SODIUM 100 MG CAPSULE PO SCH (17:07)
--- NOTE | 2016-08-07 18:04 | PDOC PROGRESS REPORT ---
Subjective Progress Note for:: 08/07/16 Subjective:: Patient is feeling much better this morning he had any chest pain he had any shortness of the breath and it denied any abdominal pain no nausea no vomiting. Family in the room and discussed with the family about patient's current conditions Physical Exam Vital Signs: Temp Pulse Resp BP Pulse Ox 99.0 F 85 19 159/59 H 91 L 08/07/16 16:10 08/07/16 16:00 08/07/16 16:10 08/07/16 16:10 08/07/16 16:10 Intake & Output 08/06/16 08/07/16 08/08/16 06:59 06:59 06:59 Intake Total 2768 1441 414 Output Total 4300 0985 1345 Balance -1532 -934 -931 Weight 66.8 kg 65.4 kg General appearance: PRESENT: no acute distress, well-developed, well-nourished Head exam: PRESENT: atraumatic, normocephalic Eye exam: PRESENT: conjunctiva pink, EOMI, PERRLA. ABSENT: scleral icterus Ear exam: PRESENT: normal external ear exam Mouth exam: PRESENT: moist, tongue midline Neck exam: PRESENT: full ROM. ABSENT: carotid bruit, JVD, lymphadenopathy, thyromegaly Respiratory exam: PRESENT: clear to auscultation sakshi Cardiovascular exam: PRESENT: RRR. ABSENT: diastolic murmur, rubs, systolic murmur Pulses: PRESENT: normal dorsalis pedis pul, +2 pedal pulses bilateral Vascular exam: PRESENT: normal capillary refill GI/Abdominal exam: PRESENT: normal bowel sounds, soft. ABSENT: distended, guarding, mass, organolmegaly, rebound, tenderness Rectal exam: PRESENT: deferred Neurological exam: PRESENT: alert, awake, oriented to person, oriented to place , oriented to time, oriented to situation, CN II-XII grossly intact. ABSENT: motor sensory deficit Psychiatric exam: PRESENT: appropriate affect, normal mood. ABSENT: homicidal ideation, suicidal ideation Skin exam: PRESENT: dry, intact, warm. ABSENT: cyanosis, rash Results Laboratory Results: 08/07/16 04:24 08/07/16 04:24 08/07/16 08/07/16 04:24 04:24 WBC 12.1 H RBC 4.44 Hgb 13.8 Hct 41.9 MCV 94 MCH 31.2 MCHC 33.1 RDW 14.1 H Plt Count 184 Seg Neutrophils % 73.3 Lymphocytes % 17.7 Monocytes % 7.8 Eosinophils % 0.9 Basophils % 0.3 Absolute Neutrophils 8.8 H Absolute Lymphocytes 2.1 Absolute Monocytes 0.9 Absolute Eosinophils 0.1 Absolute Basophils 0.0 Sodium 143.0 Potassium 3.6 Chloride 104 Carbon Dioxide 31 H Anion Gap 8 BUN 18 Creatinine 0.47 L Est GFR ( Amer) > 60 Est GFR (Non-Af Amer) > 60 Glucose 86 Calcium 9.2 07/26/16 13:45 NT-Pro-B Natriuret Pep 169 Impressions: Chest/Abdomen CTA 07/26/16 00:00 IMPRESSION: NORMAL CTA OF THE CHEST. NO PULMONARY EMBOLI. EMPHYSEMATOUS CHANGES WITH CHRONIC SCARRING. NO ACUTE FINDINGS. Abdomen/Pelvis CT 07/31/16 00:00 IMPRESSION: No acute or suspicious CT findings of the abdomen-pelvis. Small colonic diverticulosis. KUB X-Ray 07/31/16 00:00 IMPRESSION: Good position of nasogastric tube. No obstruction. Chest X-Ray 08/05/16 06:00 IMPRESSION: 1. Interval removal of the endotracheal and nasogastric tubes. 2. Stable appearance of the chest in comparison the prior study. Assessment & Plan - Diagnosis (1) Fever Qualifiers: Fever type: unspecified Qualified Code(s): R50.9 - Fever, unspecified Is this a current diagnosis for this admission?: Yes (2) COPD with acute bronchitis Is this a current diagnosis for this admission?: YesPlan: ALT stable and improving (3) Hypoxia Is this a current diagnosis for this admission?: YesPlan: resolved (4) Coronary artery disease Qualifiers: Coronary Disease-Associated Artery/Lesion type: unspecified vessel or lesion type Is this a current diagnosis for this admission?: YesPlan: At the EKG the patient's denied any coronary symptoms (5) Hypertension Qualifiers: Hypertension type: essential hypertension Qualified Code(s): I10 - Essential (primary) hypertension Is this a current diagnosis for this admission?: YesPlan: Continues the current medications (6) Depression Qualifiers: Depression Type: major depressive disorder Is this a current diagnosis for this admission?: YesPlan: Continues the current medications (7) Smoker Is this a current diagnosis for this admission?: YesPlan: Discussed with the patient about smoking cessation (8) Respiratory failure with hypoxia and hypercapnia Qualifiers: Chronicity: acute on chronic Qualified Code(s): J96.21 - Acute and chronic respiratory failure with hypoxia; J96.22 - Acute and chronic respiratory failure with hypercapnia Is this a current diagnosis for this admission?: YesPlan: Currently extubated and on a nasal cannula (9) Pneumonia due to Klebsiella pneumoniae Qualifiers: Lung location: unspecified part of lung Is this a current diagnosis for this admission?: NoPlan: Continues to IV antibiotic (10) Abdominal distention Is this a current diagnosis for this admission?: Yes - Time Time Spent with patient: 15-24 minutes Medications reviewed and adjusted accordingly: Yes Anticipated discharge: Home Within: Other - Inpatient Certification Medical Necessity: Need for IV Antibiotics Post Hospital Care: D/C Clinic Physician Director Documentation - Plan Summary Plan Summary: Continues the current medications transfer the patient in the telemetry floor and get the physical therapy
[2016-08-07] MEDS: ZOLPIDEM TARTRATE 5 MG TABLET PO SCH (21:32)
[2016-08-07] MEDS: MONTELUKAST SODIUM 10 MG TABLET NG SCH (21:32)
[2016-08-07] MEDS: BUDESONIDE/FORMOTEROL 160-4.5 MCG 60 PUFF/6 GM MDI IH SCH (21:34)
[2016-08-07] MEDS: RANOLAZINE 500 MG TAB.SR.12H PO SCH (21:53)
[2016-08-08] MEDS: IPRATROPIUM/ALBUTEROL 0.5-2.5 MG/3 ML AMPUL NEB SCH ×5 (03:58→19:47)
[2016-08-08 04:19] LABS: ANION GAP 11 (5-19); BLOOD UREA NITROGEN 17 mg/dL (7-20); CALCIUM 9.6 mg/dL (8.4-10.2); CARBON DIOXIDE 31 mmol/L (22-30); CHLORIDE 102 mmol/L (98-107); CREATININE RESULT 0.46 mg/dL (0.52-1.25); GLUCOSE 81 mg/dL (75-110); POTASSIUM 4.2 mmol/L (3.6-5.0); SODIUM 143.5 mmol/L (137-145)
[2016-08-08] MEDS: LANSOPRAZOLE 15 MG TAB.RAP.DR NG SCH ×2 (06:00→17:27)
[2016-08-08] MEDS: CEFTAZIDIME PENTAHYDRATE 1 GM in DEXTROSE 5%-WATER 50 ML IV SCH ×3 (06:00→22:41)
[2016-08-08] MEDS: METHYLPREDNISOLONE INJ 40 MG/1 ML SDV IV SCH (09:33)
[2016-08-08] MEDS: ENOXAPARIN SODIUM INJ 40 MG/0.4 ML DISP.SYRIN SUBCUT SCH (09:33)
[2016-08-08] MEDS: DOCUSATE SODIUM 100 MG CAPSULE PO SCH ×2 (09:34→17:26)
[2016-08-08] MEDS: ISOSORBIDE MONONITRATE 30 MG TAB.ER.24H PO SCH (09:35)
[2016-08-08] MEDS: NICOTINE 21 MG/24 HR PATCH.TD24 TD SCH (09:35)
[2016-08-08] MEDS: BUDESONIDE/FORMOTEROL 160-4.5 MCG 60 PUFF/6 GM MDI IH SCH ×2 (10:33→22:41)
[2016-08-08] MEDS: RANOLAZINE 500 MG TAB.SR.12H PO SCH ×2 (10:34→22:42)
[2016-08-08] MEDS: TIOTROPIUM BROMIDE DPI 5 CAP/KIT (18 MCG/CAP) IH SCH (10:34)
[2016-08-08] MEDS: AMLODIPINE BESYLATE 2.5 MG TABLET NG SCH ×2 (10:49→22:42)
--- NOTE | 2016-08-08 14:02 | PDOC PROGRESS REPORT ---
Subjective Progress Note for:: 08/08/16 Subjective:: Patient is feeling much better denied any chest pain no shortness of the breath and no other events happened overnight. Physical Exam Vital Signs: Temp Pulse Resp BP Pulse Ox 98.0 F 90 18 144/60 H 90 L 08/08/16 11:17 08/08/16 12:00 08/08/16 12:00 08/08/16 11:17 08/08/16 12:00 Intake & Output 08/07/16 08/08/16 08/09/16 06:59 06:59 06:59 Intake Total 1441 469 Output Total 2377 6200 Balance -934 -1931 Weight 65.4 kg 66.5 kg General appearance: PRESENT: no acute distress, well-developed, well-nourished Head exam: PRESENT: atraumatic, normocephalic Eye exam: PRESENT: conjunctiva pink, EOMI, PERRLA. ABSENT: scleral icterus Ear exam: PRESENT: normal external ear exam Mouth exam: PRESENT: moist, tongue midline Neck exam: PRESENT: full ROM. ABSENT: carotid bruit, JVD, lymphadenopathy, thyromegaly Respiratory exam: PRESENT: clear to auscultation sakshi Cardiovascular exam: PRESENT: RRR. ABSENT: diastolic murmur, rubs, systolic murmur Pulses: PRESENT: normal dorsalis pedis pul, +2 pedal pulses bilateral Vascular exam: PRESENT: normal capillary refill GI/Abdominal exam: PRESENT: normal bowel sounds, soft. ABSENT: distended, guarding, mass, organolmegaly, rebound, tenderness Rectal exam: PRESENT: deferred Neurological exam: PRESENT: alert, awake, oriented to person, oriented to place , oriented to time, oriented to situation, CN II-XII grossly intact. ABSENT: motor sensory deficit Psychiatric exam: PRESENT: appropriate affect, normal mood. ABSENT: homicidal ideation, suicidal ideation Skin exam: PRESENT: dry, intact, warm. ABSENT: cyanosis, rash Results Laboratory Results: 08/07/16 04:24 08/08/16 03:44 08/08/16 03:44 Sodium 143.5 Potassium 4.2 Chloride 102 Carbon Dioxide 31 H Anion Gap 11 BUN 17 Creatinine 0.46 L Est GFR ( Amer) > 60 Est GFR (Non-Af Amer) > 60 Glucose 81 Calcium 9.6 07/26/16 13:45 NT-Pro-B Natriuret Pep 169 Impressions: Chest/Abdomen CTA 07/26/16 00:00 IMPRESSION: NORMAL CTA OF THE CHEST. NO PULMONARY EMBOLI. EMPHYSEMATOUS CHANGES WITH CHRONIC SCARRING. NO ACUTE FINDINGS. Abdomen/Pelvis CT 07/31/16 00:00 IMPRESSION: No acute or suspicious CT findings of the abdomen-pelvis. Small colonic diverticulosis. KUB X-Ray 07/31/16 00:00 IMPRESSION: Good position of nasogastric tube. No obstruction. Chest X-Ray 08/05/16 06:00 IMPRESSION: 1. Interval removal of the endotracheal and nasogastric tubes. 2. Stable appearance of the chest in comparison the prior study. Assessment & Plan - Diagnosis (1) Fever Qualifiers: Fever type: unspecified Qualified Code(s): R50.9 - Fever, unspecified Is this a current diagnosis for this admission?: YesPlan: All resolved (2) COPD with acute bronchitis Is this a current diagnosis for this admission?: YesPlan: All resolving (3) Hypoxia Is this a current diagnosis for this admission?: YesPlan: Currently under nasal cannula (4) Coronary artery disease Qualifiers: Coronary Disease-Associated Artery/Lesion type: unspecified vessel or lesion type Is this a current diagnosis for this admission?: YesPlan: At the EKG the patient's denied any coronary symptoms (5) Hypertension Qualifiers: Hypertension type: essential hypertension Qualified Code(s): I10 - Essential (primary) hypertension Is this a current diagnosis for this admission?: YesPlan: Continues the current medications (6) Depression Qualifiers: Depression Type: major depressive disorder Is this a current diagnosis for this admission?: YesPlan: Continues the current medications (7) Smoker Is this a current diagnosis for this admission?: YesPlan: Discussed with the patient about smoking cessation (8) Respiratory failure with hypoxia and hypercapnia Qualifiers: Chronicity: acute on chronic Qualified Code(s): J96.21 - Acute and chronic respiratory failure with hypoxia; J96.22 - Acute and chronic respiratory failure with hypercapnia Is this a current diagnosis for this admission?: YesPlan: Currently extubated and on a nasal cannula (9) Pneumonia due to Klebsiella pneumoniae Qualifiers: Lung location: unspecified part of lung Is this a current diagnosis for this admission?: NoPlan: Continues to IV antibiotic (10) Abdominal distention Is this a current diagnosis for this admission?: Yes - Time Time Spent with patient: 15-24 minutes Medications reviewed and adjusted accordingly: Yes Anticipated discharge: Home Within: Other - Inpatient Certification Medical Necessity: Need Close Monitoring Due to Risk of Patient Decompensation, Need for IV Antibiotics Post Hospital Care: D/C Instrument Mechanic Documentation - Plan Summary Plan Summary: Continues to physical therapy switched to the p.o. antibiotic in the next 24-48 hours of the patient's remained stable may be discharged home with the home health and physical therapy
[2016-08-08] MEDS ORDERED: BISACODYL 10 MG SUPP.RECT PR ONE (15:00)
[2016-08-08] MEDS: PREDNISONE 10 MG TABLET PO SCH (17:26)
[2016-08-08] MEDS: CETIRIZINE 5 MG TABLET NG SCH (17:26)
[2016-08-08] MEDS: SIMVASTATIN 10 MG TABLET NG SCH (17:26)
[2016-08-08] MEDS: ZOLPIDEM TARTRATE 5 MG TABLET PO SCH (22:41)
[2016-08-08] MEDS: MONTELUKAST SODIUM 10 MG TABLET NG SCH (22:41)
[2016-08-09] MEDS: IPRATROPIUM/ALBUTEROL 0.5-2.5 MG/3 ML AMPUL NEB SCH ×6 (00:34→19:48)
[2016-08-09 05:14] LABS: ABSOLUTE BASOPHILS # (AUTO) 0.1 10^3/uL (0.0-0.2); ABSOLUTE EOSINOPHILS # (AUTO) 0.1 10^3/uL (0.0-0.6); ABSOLUTE LYMPHOCYTES (AUTO) 1.3 10^3/uL (0.5-4.7); ABSOLUTE MONOCYTES (AUTO) 0.9 10^3/uL (0.1-1.4); ABSOLUTE NEUT (AUTO) 10.4 10^3/uL (1.7-8.2); BASOPHILS % (AUTO) 0.5 % (0-2); EOSINOPHILS % (AUTO) 0.4 % (0-6); HEMATOCRIT 38.4 % (36.0-47.0); HEMOGLOBIN 12.6 g/dL (12.0-15.5); HGB HCT DIFFERENCE -0.6; LYMPHOCYTES % (AUTO) 10.1 % (13-45); MEAN CORPUSCULAR HEMOGLOBIN 30.7 pg (27.0-33.4); MEAN CORPUSCULAR HGB CONC 32.7 g/dL (32.0-36.0); MEAN CORPUSCULAR VOLUME 94 fl (80-97); MONOCYTES % (AUTO) 7.4 % (3-13); RED BLOOD COUNT 4.08 10^6/uL (3.72-5.28); RED CELL DISTRIBUTION WIDTH 14.2 % (11.5-14.0); SEGMENTED NEUTROPHILS % (AUTO) 81.6 % (42-78); WHITE BLOOD COUNT 12.7 10^3/uL (4.0-10.5)
[2016-08-09 05:29] LABS: ANION GAP 10 (5-19); BLOOD UREA NITROGEN 16 mg/dL (7-20); CALCIUM 9.5 mg/dL (8.4-10.2); CARBON DIOXIDE 29 mmol/L (22-30); CHLORIDE 102 mmol/L (98-107); CREATININE RESULT 0.54 mg/dL (0.52-1.25); GLUCOSE 88 mg/dL (75-110); POTASSIUM 3.5 mmol/L (3.6-5.0); SODIUM 141.1 mmol/L (137-145)
[2016-08-09] MEDS: LANSOPRAZOLE 15 MG TAB.RAP.DR NG SCH ×2 (06:25→18:08)
[2016-08-09] MEDS: CEFTAZIDIME PENTAHYDRATE 1 GM in DEXTROSE 5%-WATER 50 ML IV SCH ×3 (06:25→21:12)
[2016-08-09] MEDS: ENOXAPARIN SODIUM INJ 40 MG/0.4 ML DISP.SYRIN SUBCUT SCH (07:31)
[2016-08-09] MEDS: BUDESONIDE/FORMOTEROL 160-4.5 MCG 60 PUFF/6 GM MDI IH SCH ×2 (07:31→21:11)
[2016-08-09] MEDS ORDERED: POTASSIUM CHLORIDE 20 MEQ/15 ML UDCUP PO ONE (09:00)
--- NOTE | 2016-08-09 09:16 | PDOC PROGRESS REPORT ---
Subjective Progress Note for:: 08/09/16 Subjective:: pt is doing fair still weak pt denied any chst pain no sob Physical Exam Vital Signs: Temp Pulse Resp BP Pulse Ox 98.3 F 81 18 144/60 H 95 08/09/16 07:36 08/09/16 08:08 08/09/16 08:08 08/09/16 07:36 08/09/16 08:08 Intake & Output 08/08/16 08/09/16 08/10/16 06:59 06:59 06:59 Intake Total 469 670 Output Total 2400 0 Balance -1931 670 Weight 66.5 kg 62.1 kg General appearance: PRESENT: no acute distress, well-developed, well-nourished Head exam: PRESENT: atraumatic, normocephalic Eye exam: PRESENT: conjunctiva pink, EOMI, PERRLA. ABSENT: scleral icterus Ear exam: PRESENT: normal external ear exam Mouth exam: PRESENT: moist, tongue midline Neck exam: PRESENT: full ROM. ABSENT: carotid bruit, JVD, lymphadenopathy, thyromegaly Respiratory exam: PRESENT: clear to auscultation sakshi Cardiovascular exam: PRESENT: RRR. ABSENT: diastolic murmur, rubs, systolic murmur Pulses: PRESENT: normal dorsalis pedis pul, +2 pedal pulses bilateral Vascular exam: PRESENT: normal capillary refill GI/Abdominal exam: PRESENT: normal bowel sounds, soft. ABSENT: distended, guarding, mass, organolmegaly, rebound, tenderness Rectal exam: PRESENT: deferred Neurological exam: PRESENT: alert, awake, oriented to person, oriented to place , oriented to time, oriented to situation, CN II-XII grossly intact. ABSENT: motor sensory deficit Psychiatric exam: PRESENT: appropriate affect, normal mood. ABSENT: homicidal ideation, suicidal ideation Skin exam: PRESENT: dry, intact, warm. ABSENT: cyanosis, rash Results Laboratory Results: 08/09/16 04:36 08/09/16 04:36 08/09/16 08/09/16 04:36 04:36 WBC 12.7 H RBC 4.08 Hgb 12.6 Hct 38.4 MCV 94 MCH 30.7 MCHC 32.7 RDW 14.2 H Plt Count 173 Seg Neutrophils % 81.6 H Lymphocytes % 10.1 L Monocytes % 7.4 Eosinophils % 0.4 Basophils % 0.5 Absolute Neutrophils 10.4 H Absolute Lymphocytes 1.3 Absolute Monocytes 0.9 Absolute Eosinophils 0.1 Absolute Basophils 0.1 Sodium 141.1 Potassium 3.5 L Chloride 102 Carbon Dioxide 29 Anion Gap 10 BUN 16 Creatinine 0.54 Est GFR ( Amer) > 60 Est GFR (Non-Af Amer) > 60 Glucose 88 Calcium 9.5 07/26/16 13:45 NT-Pro-B Natriuret Pep 169 Impressions: Chest/Abdomen CTA 07/26/16 00:00 IMPRESSION: NORMAL CTA OF THE CHEST. NO PULMONARY EMBOLI. EMPHYSEMATOUS CHANGES WITH CHRONIC SCARRING. NO ACUTE FINDINGS. Abdomen/Pelvis CT 07/31/16 00:00 IMPRESSION: No acute or suspicious CT findings of the abdomen-pelvis. Small colonic diverticulosis. KUB X-Ray 07/31/16 00:00 IMPRESSION: Good position of nasogastric tube. No obstruction. Chest X-Ray 08/05/16 06:00 IMPRESSION: 1. Interval removal of the endotracheal and nasogastric tubes. 2. Stable appearance of the chest in comparison the prior study. Assessment & Plan - Diagnosis (1) Fever Qualifiers: Fever type: unspecified Qualified Code(s): R50.9 - Fever, unspecified Is this a current diagnosis for this admission?: Yes (2) COPD with acute bronchitis Is this a current diagnosis for this admission?: YesPlan: All resolving (3) Hypoxia Is this a current diagnosis for this admission?: YesPlan: Currently under nasal cannula (4) Coronary artery disease Qualifiers: Coronary Disease-Associated Artery/Lesion type: unspecified vessel or lesion type Is this a current diagnosis for this admission?: YesPlan: At the EKG the patient's denied any coronary symptoms (5) Hypertension Qualifiers: Hypertension type: essential hypertension Qualified Code(s): I10 - Essential (primary) hypertension Is this a current diagnosis for this admission?: YesPlan: Continues the current medications (6) Depression Qualifiers: Depression Type: major depressive disorder Is this a current diagnosis for this admission?: YesPlan: Continues the current medications (7) Smoker Is this a current diagnosis for this admission?: YesPlan: Discussed with the patient about smoking cessation (8) Respiratory failure with hypoxia and hypercapnia Qualifiers: Chronicity: acute on chronic Qualified Code(s): J96.21 - Acute and chronic respiratory failure with hypoxia; J96.22 - Acute and chronic respiratory failure with hypercapnia Is this a current diagnosis for this admission?: YesPlan: Currently extubated and on a nasal cannula (9) Pneumonia due to Klebsiella pneumoniae Qualifiers: Lung location: unspecified part of lung Is this a current diagnosis for this admission?: NoPlan: Continues to IV antibiotic (10) Abdominal distention Is this a current diagnosis for this admission?: Yes - Time Time Spent with patient: 15-24 minutes Medications reviewed and adjusted accordingly: Yes Anticipated discharge: SNF Within: Other - Inpatient Certification Medical Necessity: Significant Comorbidiites Make Outpatient Treatment Too Risky , Need for IV Antibiotics Post Hospital Care: D/C Polymerization Helper Documentation - Plan Summary Plan Summary: due lizzie pt need to go rehab
[2016-08-09] MEDS: PREDNISONE 10 MG TABLET PO SCH ×2 (10:23→18:08)
[2016-08-09] MEDS: DOCUSATE SODIUM 100 MG CAPSULE PO SCH ×2 (10:23→18:08)
[2016-08-09] MEDS: AMLODIPINE BESYLATE 2.5 MG TABLET NG SCH ×2 (10:23→21:12)
[2016-08-09] MEDS: NICOTINE 21 MG/24 HR PATCH.TD24 TD SCH (10:23)
[2016-08-09] MEDS: RANOLAZINE 500 MG TAB.SR.12H PO SCH ×2 (10:23→21:12)
[2016-08-09] MEDS: TIOTROPIUM BROMIDE DPI 5 CAP/KIT (18 MCG/CAP) IH SCH (10:24)
[2016-08-09] MEDS: ISOSORBIDE MONONITRATE 30 MG TAB.ER.24H PO SCH (10:24)
[2016-08-09] MEDS: CETIRIZINE 5 MG TABLET NG SCH (18:08)
[2016-08-09] MEDS: SIMVASTATIN 10 MG TABLET NG SCH (18:08)
[2016-08-09] MEDS: MONTELUKAST SODIUM 10 MG TABLET NG SCH (21:12)
[2016-08-09] MEDS: ZOLPIDEM TARTRATE 5 MG TABLET PO SCH (21:47)
[2016-08-10] MEDS: IPRATROPIUM/ALBUTEROL 0.5-2.5 MG/3 ML AMPUL NEB SCH ×6 (00:19→19:34)
[2016-08-10] MEDS: CEFTAZIDIME PENTAHYDRATE 1 GM in DEXTROSE 5%-WATER 50 ML IV SCH ×3 (05:46→22:27)
[2016-08-10] MEDS: LANSOPRAZOLE 15 MG TAB.RAP.DR NG SCH ×2 (05:46→17:40)
[2016-08-10] MEDS: ENOXAPARIN SODIUM INJ 40 MG/0.4 ML DISP.SYRIN SUBCUT SCH (09:23)
[2016-08-10] MEDS: ISOSORBIDE MONONITRATE 30 MG TAB.ER.24H PO SCH (09:29)
[2016-08-10] MEDS: NICOTINE 21 MG/24 HR PATCH.TD24 TD SCH (09:29)
[2016-08-10] MEDS: DOCUSATE SODIUM 100 MG CAPSULE PO SCH ×2 (09:30→17:40)
[2016-08-10] MEDS: BUDESONIDE/FORMOTEROL 160-4.5 MCG 60 PUFF/6 GM MDI IH SCH ×2 (09:30→22:27)
[2016-08-10] MEDS: RANOLAZINE 500 MG TAB.SR.12H PO SCH ×2 (09:30→22:27)
[2016-08-10] MEDS: PREDNISONE 10 MG TABLET PO SCH ×2 (09:30→17:40)
[2016-08-10] MEDS: TIOTROPIUM BROMIDE DPI 5 CAP/KIT (18 MCG/CAP) IH SCH (09:30)
[2016-08-10] MEDS: AMLODIPINE BESYLATE 2.5 MG TABLET NG SCH ×2 (09:30→22:27)
--- NOTE | 2016-08-10 12:18 | PDOC PROGRESS REPORT ---
Subjective Progress Note for:: 08/10/16 Subjective:: Patient is currently doing fair. Patients need of physical therapy. Denied any chest pain denied any shortness of the breath. Physical Exam Vital Signs: Temp Pulse Resp BP Pulse Ox 98.0 F 79 16 147/59 H 93 08/10/16 07:34 08/10/16 08:12 08/10/16 08:12 08/10/16 07:34 08/10/16 08:12 Intake & Output 08/09/16 08/10/16 08/11/16 06:59 06:59 06:59 Intake Total 670 1435 Output Total 0 Balance 670 1435 Weight 62.1 kg 63.2 kg General appearance: PRESENT: no acute distress, well-developed, well-nourished Head exam: PRESENT: atraumatic, normocephalic Eye exam: PRESENT: conjunctiva pink, EOMI, PERRLA. ABSENT: scleral icterus Ear exam: PRESENT: normal external ear exam Mouth exam: PRESENT: moist, tongue midline Neck exam: PRESENT: full ROM. ABSENT: carotid bruit, JVD, lymphadenopathy, thyromegaly Respiratory exam: PRESENT: clear to auscultation sakshi Cardiovascular exam: PRESENT: RRR. ABSENT: diastolic murmur, rubs, systolic murmur Pulses: PRESENT: normal dorsalis pedis pul, +2 pedal pulses bilateral Vascular exam: PRESENT: normal capillary refill GI/Abdominal exam: PRESENT: normal bowel sounds, soft. ABSENT: distended, guarding, mass, organolmegaly, rebound, tenderness Rectal exam: PRESENT: deferred Neurological exam: PRESENT: alert, awake, oriented to person, oriented to place , oriented to time, oriented to situation, CN II-XII grossly intact. ABSENT: motor sensory deficit Psychiatric exam: PRESENT: appropriate affect, normal mood. ABSENT: homicidal ideation, suicidal ideation Skin exam: PRESENT: dry, intact, warm. ABSENT: cyanosis, rash Results Laboratory Results: 08/09/16 04:36 08/09/16 04:36 07/26/16 13:45 NT-Pro-B Natriuret Pep 169 Impressions: Chest/Abdomen CTA 07/26/16 00:00 IMPRESSION: NORMAL CTA OF THE CHEST. NO PULMONARY EMBOLI. EMPHYSEMATOUS CHANGES WITH CHRONIC SCARRING. NO ACUTE FINDINGS. Abdomen/Pelvis CT 07/31/16 00:00 IMPRESSION: No acute or suspicious CT findings of the abdomen-pelvis. Small colonic diverticulosis. KUB X-Ray 07/31/16 00:00 IMPRESSION: Good position of nasogastric tube. No obstruction. Chest X-Ray 08/05/16 06:00 IMPRESSION: 1. Interval removal of the endotracheal and nasogastric tubes. 2. Stable appearance of the chest in comparison the prior study. Assessment & Plan - Diagnosis (1) Fever Qualifiers: Fever type: unspecified Qualified Code(s): R50.9 - Fever, unspecified Is this a current diagnosis for this admission?: Yes (2) COPD with acute bronchitis Is this a current diagnosis for this admission?: YesPlan: All resolving (3) Hypoxia Is this a current diagnosis for this admission?: YesPlan: Currently under nasal cannula (4) Coronary artery disease Qualifiers: Coronary Disease-Associated Artery/Lesion type: unspecified vessel or lesion type Is this a current diagnosis for this admission?: YesPlan: At the EKG the patient's denied any coronary symptoms (5) Hypertension Qualifiers: Hypertension type: essential hypertension Qualified Code(s): I10 - Essential (primary) hypertension Is this a current diagnosis for this admission?: YesPlan: Continues the current medications (6) Depression Qualifiers: Depression Type: major depressive disorder Is this a current diagnosis for this admission?: YesPlan: Continues the current medications (7) Smoker Is this a current diagnosis for this admission?: YesPlan: Discussed with the patient about smoking cessation (8) Respiratory failure with hypoxia and hypercapnia Qualifiers: Chronicity: acute on chronic Qualified Code(s): J96.21 - Acute and chronic respiratory failure with hypoxia; J96.22 - Acute and chronic respiratory failure with hypercapnia Is this a current diagnosis for this admission?: YesPlan: Currently extubated and on a nasal cannula (9) Pneumonia due to Klebsiella pneumoniae Qualifiers: Lung location: unspecified part of lung Is this a current diagnosis for this admission?: NoPlan: Continues to IV antibiotic (10) Abdominal distention Is this a current diagnosis for this admission?: Yes - Time Time Spent with patient: 15-24 minutes Medications reviewed and adjusted accordingly: Yes Anticipated discharge: SNF Within: within 24 hours - Inpatient Certification Medical Necessity: Need for IV Antibiotics Post Hospital Care: D/C Damage Inside Adjuster Documentation - Plan Summary Plan Summary: DC the [facility] tomorrow if remains stable
[2016-08-10] MEDS: SIMVASTATIN 10 MG TABLET NG SCH (17:40)
[2016-08-10] MEDS: CETIRIZINE 5 MG TABLET NG SCH (17:56)
[2016-08-10] MEDS: ZOLPIDEM TARTRATE 5 MG TABLET PO SCH (22:27)
[2016-08-10] MEDS: MONTELUKAST SODIUM 10 MG TABLET NG SCH (22:27)
[2016-08-10] MEDS: ACETAMINOPHEN SOLN 325 MG/10.15 ML UDCUP NG PRN (23:13)
[2016-08-11] MEDS: IPRATROPIUM/ALBUTEROL 0.5-2.5 MG/3 ML AMPUL NEB SCH ×5 (00:14→16:07)
[2016-08-11 06:08] LABS: ABSOLUTE LYMPHOCYTES (AUTO) 0.8 10^3/uL (0.5-4.7); ABSOLUTE MONOCYTES (AUTO) 0.8 10^3/uL (0.1-1.4); ABSOLUTE NEUT (AUTO) 9.1 10^3/uL (1.7-8.2); BASOPHILS % (AUTO) 0.5 % (0-2); EOSINOPHILS % (AUTO) 0.4 % (0-6); HEMATOCRIT 38.1 % (36.0-47.0); HEMOGLOBIN 12.7 g/dL (12.0-15.5); LYMPHOCYTES % (AUTO) 7.4 % (13-45); MEAN CORPUSCULAR HEMOGLOBIN 31.7 pg (27.0-33.4); MEAN CORPUSCULAR HGB CONC 33.3 g/dL (32.0-36.0); MEAN CORPUSCULAR VOLUME 95 fl (80-97); MONOCYTES % (AUTO) 7.7 % (3-13); RED BLOOD COUNT 4.01 10^6/uL (3.72-5.28); RED CELL DISTRIBUTION WIDTH 14.3 % (11.5-14.0); WHITE BLOOD COUNT 10.8 10^3/uL (4.0-10.5)
[2016-08-11] MEDS: CEFTAZIDIME PENTAHYDRATE 1 GM in DEXTROSE 5%-WATER 50 ML IV SCH (06:29)
[2016-08-11] MEDS: LANSOPRAZOLE 15 MG TAB.RAP.DR NG SCH (06:29)
[2016-08-11 06:30] LABS: ANION GAP 10 (5-19); BLOOD UREA NITROGEN 15 mg/dL (7-20); CALCIUM 9.5 mg/dL (8.4-10.2); CARBON DIOXIDE 26 mmol/L (22-30); CHLORIDE 104 mmol/L (98-107); CREATININE RESULT 0.57 mg/dL (0.52-1.25); GLUCOSE 91 mg/dL (75-110); POTASSIUM 4.6 mmol/L (3.6-5.0); SODIUM 140.3 mmol/L (137-145)
--- NOTE | 2016-08-11 07:05 | PDOC TRANSFER SUMMARY ---
General - Admit/Disc Date/PCP Admission Date/Primary Care Provider: 07/26/16 13:12 MARK PATTON Discharge Date: 08/11/16 - Discharge Diagnosis (1) Fever Is this a current diagnosis for this admission?: YesSummary: all resolved (2) COPD with acute bronchitis Is this a current diagnosis for this admission?: YesSummary: all stable (3) Hypoxia Is this a current diagnosis for this admission?: YesSummary: on o2 and all reoslved (4) Coronary artery disease Is this a current diagnosis for this admission?: YesSummary: stable f/u out pt cardilogy (5) Hypertension Is this a current diagnosis for this admission?: YesSummary: stable (6) Depression Is this a current diagnosis for this admission?: YesSummary: stable (7) Smoker Is this a current diagnosis for this admission?: YesSummary: on patch (8) Respiratory failure with hypoxia and hypercapnia Is this a current diagnosis for this admission?: YesSummary: resolved (9) Pneumonia due to Klebsiella pneumoniae Is this a current diagnosis for this admission?: NoSummary: on po doxy (10) Abdominal distention Is this a current diagnosis for this admission?: YesSummary: resolved - Additional Information Resuscitation Status: Full Code Discharge Diet: Diabetic Discharge Activity: Activity As Tolerated Home Medications: Zolpidem Tartrate 10 mg PO DAILY 08/17/13 Albuterol Sulfate [Proair HFA Inhalation Aerosol 8.5 gm MDI] 2 puff IH Q6 #0 hfa.aer.ad 08/19/13 Budesonide/Formoterol Fumarate [Symbicort HFA 160-4.5 mcg Inhaler 6 gm] 2 puff IH BID #0 inhaler 08/19/13 Ranolazine [Ranexa 500 mg Tab.sr] 500 mg PO Q12 #0 tab.sr.12h 08/19/13 Amlodipine Besylate 2.5 mg PO Q12H 07/26/16 Ipratropium/Albuterol Sulfate [Iprat-Albut 0.5-3(2.5) mg/3 ml] 3 ml IH Q6H 07/26 Isosorbide Mononitrate [Imdur 30 mg Tablet.er] 30 mg PO DAILY 07/26/16 Levocetirizine Dihydrochloride [Xyzal 5 mg Tablet] 5 mg PO QPM 07/26/16 Linaclotide [Linzess] 145 mcg PO DAILY 07/26/16 Montelukast Sodium 10 mg PO QHS 07/26/16 Simvastatin 20 mg PO QPM 07/26/16 Acetaminophen [Tylenol Soln 325 mg/10.15 ml Udcup] 650 mg NG Q4HP PRN #0 udc 07/28 Doxycycline Monohydrate 100 mg PO BID #14 tablet 08/10/16 Insulin Lispro [Humalog Insulin (Lispro) 100 unit/mL] 0 - 12 unit SUBCUT Q6HP PRN #0 unit 08/10/16 Nicotine [Nicoderm 21 mg/24 Hr Transderm Patch] 1 each TD DAILY #7 patch.td24 Tiotropium [place] [Spiriva Handihaler 5 Cap/Kit (18 Mcg/Cap)] 1 cap IH DAILY # 0 kit 08/10/16 History of Present Illness Admission Date/PCP: 07/26/16 13:12 MARK PATTON History of Present Illness: RAE ARCHER is a 65 year old female with a significant history of the coronary artery disease chest post stent placement history of the COPD and continues to smoke and a history of the hypertension's hyperlipidemia and anxiety disorder came to the my office today with a complaining of a fever 102 and the shortness of the breath and not feeling well and patient's oxygen saturations below 85 room air. Patient was given nebulizer treatment and off and put on oxygen but still patients not feeling well and patient had 1 or 2 feet patient's quite a bit short of breath and wheezing and decided to admit in the hospital for further evaluation and treatment and discussed with the patient and family and angry about that. She is denied any chest pain patient also complains of cough congestions with a yellowish green sputum since last several days. Over the next several hours her respiratory status continued to decline she was placed in the ICU and subsequently intubated. Is currently displaying gram-negative rods in the sputum although no overt pneumonia is not displayed on CTA. Patient continues to smoke as above. Hospital Course Hospital Course: This is 65-year-old female with a history of the COPD and chronic smoker came to the my office with a complaint of shortness of the breath patient's O2 sat was running below 80 and patient was put on oxygen and diuretic admitting the hospitalist for further evaluation treatments. Patient have a CT angiogram was done was negative for any PE and patient will start the nebulizer respiratory treatments but the patient's is getting more worse and patient was transferred to the intensive care unit and intubated and Dr. archibald was consulted and patient was doing better and extubated and patient's was transferred to the IMCU and then telemetry bed. Patient is currently doing fair patient's have a no fever and patient's all improving problem was resolved and patient's currently on nicotine patch. Patient still week and S were discussed with the patient's family decided to send the patient to the rehabilitation and continues to monitor over there and the patient was put on the by mouth antibiotic for the Klebsiella pneumonia. Patient's for this the IV Fortaz and patient still remained stable at this point. Patient's other medical problems is all stable. Physical Exam Vital Signs: Temp Pulse Resp BP Pulse Ox 98.1 F 81 16 112/53 L 98 08/10/16 15:22 08/10/16 15:52 08/10/16 15:52 08/10/16 15:22 08/10/16 15:22 Intake & Output 08/09/16 08/10/16 08/11/16 06:59 06:59 06:59 Intake Total 670 1435 550 Output Total 0 Balance 670 1435 550 Weight 62.1 kg 63.2 kg General appearance: PRESENT: no acute distress, well-developed, well-nourished Head exam: PRESENT: atraumatic, normocephalic Eye exam: PRESENT: conjunctiva pink, EOMI, PERRLA. ABSENT: scleral icterus Ear exam: PRESENT: normal external ear exam Mouth exam: PRESENT: moist, tongue midline Neck exam: ABSENT: carotid bruit, JVD, lymphadenopathy, thyromegaly Respiratory exam: PRESENT: clear to auscultation sakshi. ABSENT: rales, rhonchi, wheezes Cardiovascular exam: PRESENT: RRR. ABSENT: diastolic murmur, rubs, systolic murmur Pulses: PRESENT: normal dorsalis pedis pul Vascular exam: PRESENT: normal capillary refill GI/Abdominal exam: PRESENT: normal bowel sounds, soft. ABSENT: distended, guarding, mass, organolmegaly, rebound, tenderness Rectal exam: PRESENT: deferred Extremities exam: PRESENT: full ROM. ABSENT: calf tenderness, clubbing, pedal edema Neurological exam: PRESENT: alert, awake, oriented to person, oriented to place , oriented to time, oriented to situation, CN II-XII grossly intact. ABSENT: motor sensory deficit Psychiatric exam: PRESENT: appropriate affect, normal mood. ABSENT: homicidal ideation, suicidal ideation Skin exam: PRESENT: dry, intact, warm. ABSENT: cyanosis, rash Results Laboratory Results: 08/09/16 04:36 08/09/16 04:36 07/26/16 13:45 NT-Pro-B Natriuret Pep 169 Impressions: Chest/Abdomen CTA 07/26/16 00:00 IMPRESSION: NORMAL CTA OF THE CHEST. NO PULMONARY EMBOLI. EMPHYSEMATOUS CHANGES WITH CHRONIC SCARRING. NO ACUTE FINDINGS. Abdomen/Pelvis CT 07/31/16 00:00 IMPRESSION: No acute or suspicious CT findings of the abdomen-pelvis. Small colonic diverticulosis. KUB X-Ray 07/31/16 00:00 IMPRESSION: Good position of nasogastric tube. No obstruction. Chest X-Ray 08/10/16 00:00 IMPRESSION: Obstructive lung disease. No acute findings Transfer Plan - Disposition Transfer Plan: Repeat the CBC and Chem-7 in 1 week. Also repeat the chest x-ray in one week. Patient's in a physical therapy and a fall precaution. - Time Spent with Patient Time spent with patient: Greater than 30 Minutes Plan Time Spent: Greater than 30 Minutes - Discharge of the rehabs the by mouth antibiotic and continues the other medications and get a physical therapy. Discussed with the patient's family and agree. I hope the patient's continues to be improved and and discuss about the smoking cessation patient's and patient 's currently on nicotine patch.
[2016-08-11] MEDS ORDERED: PNEUMOCOCCAL 23-VAL P-SAC VAC 0.5 ML VIAL IM PRN (08:21)
[2016-08-11] MEDS: DOCUSATE SODIUM 100 MG CAPSULE PO SCH (10:52)
[2016-08-11] MEDS: ENOXAPARIN SODIUM INJ 40 MG/0.4 ML DISP.SYRIN SUBCUT SCH (10:52)
[2016-08-11] MEDS: BUDESONIDE/FORMOTEROL 160-4.5 MCG 60 PUFF/6 GM MDI IH SCH (10:53)
[2016-08-11] MEDS: ISOSORBIDE MONONITRATE 30 MG TAB.ER.24H PO SCH (10:53)
[2016-08-11] MEDS: PREDNISONE 10 MG TABLET PO SCH (10:53)
[2016-08-11] MEDS: AMLODIPINE BESYLATE 2.5 MG TABLET NG SCH (10:53)
[2016-08-11] MEDS: RANOLAZINE 500 MG TAB.SR.12H PO SCH (10:53)
[2016-08-11] MEDS: TIOTROPIUM BROMIDE DPI 5 CAP/KIT (18 MCG/CAP) IH SCH (10:53)
[2016-08-11] MEDS: NICOTINE 21 MG/24 HR PATCH.TD24 TD SCH (10:54)
[2016-08-11 13:36] VITALS: BP 127/63
== END 2016-08-11 17:20 | DRG 207 ==
LOC: UNDOADMIN 12:48 → 5 12:48 → ICU 23:59 → 4N 08-08 08:01
PROVIDERS: ADMIT Family Medicine; ATTEND Family Medicine
PROC: 0BH17EZ Insertion of Endotracheal Airway into Trachea, Via Natural or Artificial Opening (ICD-10-PCS; principal; 2016-07-27)
PROC: 5A1955Z Respiratory Ventilation, Greater than 96 Consecutive Hours (ICD-10-PCS; 2016-07-27)
PROC: 3E0234Z Introduction of Serum, Toxoid and Vaccine into Muscle, Percutaneous Approach (ICD-10-PCS; 2016-08-11)
DX: J15.0 Pneumonia due to Klebsiella pneumoniae (principal); J96.21 Acute and chronic respiratory failure with hypoxia; J96.22 Acute and chronic respiratory failure with hypercapnia; J44.0 Chronic obstructive pulmonary disease with (acute) lower respiratory infection; J20.9 Acute bronchitis, unspecified; E78.5 Hyperlipidemia, unspecified; I10 Essential (primary) hypertension; I25.10 Atherosclerotic heart disease of native coronary artery without angina pectoris; I73.9 Peripheral vascular disease, unspecified; R14.0 Abdominal distension (gaseous); K21.9 Gastro-esophageal reflux disease without esophagitis; F32.9 Major depressive disorder, single episode, unspecified; F17.210 Nicotine dependence, cigarettes, uncomplicated; Z23 Encounter for immunization; Z79.01 Long term (current) use of anticoagulants; Z79.51 Long term (current) use of inhaled steroids; Z79.899 Other long term (current) drug therapy
CPT/HCPCS: 31500; 36415; 36600; 71010; 71020; 71275; 74000; 74176; 80048; 80053; 80076; 81001; 82803; 82962; 83735; 83880; 84100; 85025; 85027; 87040; 87070; 87077; 87086; 87186; 87205; 87804; 90732; 93005; 93010; 94002; 94003; 94660; G8978-GP; G8979-GP; J0330; J0456; J0692; J0713; J1100; J1650; J2060; J2370; J2704; J2920; J2930; J3490; J7030; J7040; J7060; J7512; J7620

== ENCOUNTER → 2016-09-04 | Outpatient (CLI) | payer MEDICARE, BC ==
[2016-09-04 14:50] LABS: ANION GAP 13 (5-19); BLOOD UREA NITROGEN 13 mg/dL (7-20); CALCIUM 10.4 mg/dL (8.4-10.2); CARBON DIOXIDE 24 mmol/L (22-30); CHLORIDE 104 mmol/L (98-107); CREATININE RESULT 0.57 mg/dL (0.52-1.25); GLUCOSE 99 mg/dL (75-110); SODIUM 141.2 mmol/L (137-145)
== END ==
LOC: OD 12:39
PROVIDERS: ATTEND Physician Assistant
DX: E87.5 Hyperkalemia (principal)
CPT/HCPCS: 36415; 80048

== ENCOUNTER → 2017-08-14 | Outpatient (CLI) | payer MEDICARE, BC ==
--- NOTE | 2017-08-14 15:21 | RADIOLOGY REPORT (SQ) ---
EXAM DESCRIPTION: FOOT RIGHT COMPLETE COMPLETED DATE/TIME: 08/14/2017 12:10 pm REASON FOR STUDY: PAIN IN RIGHT FOOT M79.671 PAIN IN RIGHT FOOT COMPARISON: None. NUMBER OF VIEWS: Three views. TECHNIQUE: AP, lateral and oblique radiographic images acquired of the right foot. LIMITATIONS: None. FINDINGS: MINERALIZATION: Normal. BONES: On the oblique image there appears to be a fracture of the neck of the 3rd proximal phalanx, a ge uncertain. JOINTS: No effusions. SOFT TISSUES: No soft tissue swelling. No foreign body. OTHER: No other significant finding. IMPRESSION: Fracture of the neck of the 3rd proximal phalanx as described. TECHNICAL DOCUMENTATION: JOB ID: [id number] [employer]- All Rights Reserved Reading location - IP/workstation name: [email or web address]
== END ==
LOC: OD 12:00
PROVIDERS: ATTEND Physician Assistant
DX: M79.671 Pain in right foot (principal); S92.511A Displaced fracture of proximal phalanx of right lesser toe(s), initial encounter for closed fracture; X58.XXXA Exposure to other specified factors, initial encounter

== ENCOUNTER → 2018-09-23 | Outpatient (CLI) | payer MEDICARE, BC ==
[2018-09-24 12:37] LABS: ANTICHROMATIN AB <0.2 AI (0.0-0.9); CENTROMERE B AB <0.2 AI (0.0-0.9); JO-1 ANTIBODY (ANACOMP) <0.2 AI (0.0-0.9); SJOGREN'S ANTI-SS-B AB <0.2 AI (0.0-0.9); SJOGREN'S SS-A ANTIBODY <0.2 AI (0.0-0.9)
[2018-09-24 16:37] LABS: CYTOPLASMIC (C-ANCA) <1:20 titer (Neg:<1:20)
[2018-09-25 07:42] LABS: ATYPICAL PANCA <1:20 titer (Neg:<1:20); DNA DOUBLE STRAND ANTIBODY ANA 1 IU/mL (0-9); PERINUCLEAR (P-ANCA) <1:20 titer (Neg:<1:20)
== END ==
LOC: OD 13:08
PROVIDERS: ATTEND Internal Medicine Pulmonary Disease
DX: R94.2 Abnormal results of pulmonary function studies (principal)
CPT/HCPCS: 36415; 86021; 86225; 86235

== ENCOUNTER → 2018-09-23 | Outpatient (CLI) | payer MEDICARE, BC ==
--- NOTE | 2018-09-23 17:26 | RADIOLOGY REPORT (SQ) ---
EXAM DESCRIPTION: CT LUNG CANCER SCREENING COMPLETED DATE/TIME: 09/23/2018 12:53 pm REASON FOR STUDY: Z87.891 PERSONAL HISTORY OF NICOTINE DEPENDENCE Z87.891 PERSONAL HISTORY OF NICOT INE DEPENDENCE Has the patient had a Chest CT scan within the past year? No. Was the patient offered tobacco cessation counseling? Yes. Was the patient engaged in shared decision making for this test? No. Does the patient have signs or symptoms of Lung Cancer? No. Is the patient a smoker? No. How many pack years? 53. How many years since quitting smoking? 2 years. Patients age: 68. COMPARISON: None. TECHNIQUE: Low Dose CT scan performed of the chest without intravenous contrast for purposes of scre ening for lung cancer. Images reviewed with lung, soft tissue and bone windows. Reconstructed coron al and sagittal MPR images reviewed. All images stored on PACS. All CT scanners at this facility use dose modulation, iterative reconstruction, and/or weight based d osing when appropriate to reduce radiation dose to as low as reasonably achievable (ALARA). [facility]: Dose Right [facility]: CareDose [facility]: Dose Right [facility]: Teradose 4D [facility]: [employer] RADIATION DOSE: CT Rad equipment meets quality standard of care and radiation dose reduction techniq ues were employed. CTDIvol: 2.0 mGy. DLP: 76 mGy-cm. mGy. . LIMITATIONS: No technical limitations. FINDINGS: LUNG NODULES: There are areas of linear parenchymal scarring, generally subpleural. A fe w small subpleural nodules particularly in the right lower lobe, measuring 3 mm or less. REMAINING LUNGS AND PLEURA: No pleural effusions or calcifications. No pneumothorax. Emphysemat ous changes. HILAR AND MEDIASTINAL STRUCTURES: No identified masses. No abnormal nodes. HEART AND VASCULAR STRUCTURES: No aortic aneurysm. No pericardial effusion. No cardiac devices. CORONARY ARTERY CALCIFICATIONS: Mild to moderate calcifications. UPPER ABDOMEN, THYROID, BONES, OTHER SOFT TISSUES: No significant findings. IMPRESSION: BENIGN FINDINGS IN THE LUNGS. NO OTHER CLINICALLY SIGNIFICANT/POTENTIALLY CLINICALLY SIGNIFICANT FINDINGS LUNGRADS: LUNGRADS: 2 BENIGN APPEARANCE OR BEHAVIOR. NODULES WITH A VERY LOW LIKELIHOOD OF BECOMING A CLINICALLY ACTIVE CANCER DUE TO SIZE OR LACK OF GROWTH. MODIFIER: NONE. RECOMMENDATION: Continue annual screening with LDCT in 12 months. COMMENT: CRITERIA: Solid nodule(s): < 6 mm; new < 4 mm. Part solid nodule(s): < 6 mm total diameter on baseline screening. Non solid nodule(s) (GGN): < 20 mm OR ? 20 and unchanged or slowly growing. Category 3 or 4 modules unchanged for ? 3 months. TECHNICAL DOCUMENTATION: JOB ID: [id number] Quality ID # [id number]: Final reports with documentation of one or more dose reduction techniques (e.g., Au tomated exposure control, adjustment of the mA and/or kV according to patient size, use of iterative reconstruction technique) 2010 [facility]iology Reading location - IP/workstation name: [email or web address]-
== END ==
LOC: RAD 12:29
PROVIDERS: ATTEND Internal Medicine Pulmonary Disease
DX: Z12.2 Encounter for screening for malignant neoplasm of respiratory organs (principal); Z87.891 Personal history of nicotine dependence
CPT/HCPCS: G0297

== ENCOUNTER → 2019-04-08 | Outpatient (CLI) | payer MEDICARE, BC ==
--- NOTE | 2019-04-08 16:02 | RADIOLOGY REPORT (SQ) ---
EXAM DESCRIPTION: PARANASAL SINUSES COMPLETED DATE/TIME: 04/08/2019 3:40 pm REASON FOR STUDY: ACUTE SINUSITIS, UNSPECIFIED J01.90 ACUTE SINUSITIS, UNSPECIFIED COMPARISON: None. NUMBER OF VIEWS: Three views. TECHNIQUE: Images of the paranasal sinuses acquired. LIMITATIONS: None. FINDINGS: ORBITS: No fracture. No foreign body. SINUSES: No mucosal thickening. No air fluid levels. FACIAL BONES: No fracture. OTHER: No other significant finding. IMPRESSION: No acute findings. TECHNICAL DOCUMENTATION: JOB ID: [id number] [place]-72 2010 [employer]- All Rights Reserved Reading location - IP/workstation name: [email or web address]
== END ==
LOC: OD 15:05
PROVIDERS: ATTEND Internal Medicine Pulmonary Disease
DX: J01.90 Acute sinusitis, unspecified (principal)
CPT/HCPCS: 70220

== ENCOUNTER → 2019-12-08 | Outpatient (CLI) | payer MEDICARE, BC ==
--- NOTE | 2019-12-08 10:26 | RADIOLOGY REPORT (SQ) ---
EXAM DESCRIPTION: CT LUNG CANCER SCREENING IMAGES COMPLETED DATE/TIME: 12/08/2019 9:58 am REASON FOR STUDY: PERSONAL HISTORY OF NICOTINE DEPENDENCE Z87.891 PERSONAL HISTORY OF NICOTINE DEPE NDENCE Has the patient had a Chest CT scan within the past year? N Was the patient offered tobacco cessation counseling? N Was the patient engaged in shared decision making for this test? N Does the patient have signs or symptoms of Lung Cancer? N Is the patient a smoker? N How many pack years? 50 How many years since quitting smoking? 3 Patients age: 69 COMPARISON: 09/23/2018 TECHNIQUE: Low Dose CT scan performed of the chest without intravenous contrast for purposes of scre ening for lung cancer. Images reviewed with lung, soft tissue and bone windows. Reconstructed coron al and sagittal MPR images reviewed. All images stored on PACS. All CT scanners at this facility use dose modulation, iterative reconstruction, and/or weight based d osing when appropriate to reduce radiation dose to as low as reasonably achievable (ALARA). [facility]: Dose Right [facility]: CareDose [facility]: Dose Right [facility]: Teradose 4D [facility]: [employer] RADIATION DOSE: CT Rad equipment meets quality standard of care and radiation dose reduction techniq ues were employed. CTDIvol: 2.1 mGy. DLP: 80 mGy-cm. mGy. . LIMITATIONS: None FINDINGS: LUNGS AND PLEURA: Stable linear mainly subpleural nodules. Calcified pleural plaque in the right upper lobe stable. No pneumothorax. Bilateral centrilobular emphysematous changes. HILAR AND MEDIASTINAL STRUCTURES: No identified masses. No abnormal nodes. HEART AND VASCULAR STRUCTURES: No aortic aneurysm. No pericardial effusion. No cardiac devices. CORONARY ARTERY CALCIFICATIONS: Mild to moderate coronary artery calcifications. UPPER ABDOMEN, THYROID, BONES, OTHER SOFT TISSUES: No significant findings. IMPRESSION: Benign findings in the lungs. Bilateral emphysematous changes. LUNGRADS: LUNGRADS: 2 BENIGN APPEARANCE OR BEHAVIOR NODULES WITH A VERY LOW LIKELIHOOD OF BE COMING 8 CLINICALLY ACTIVE CANCER DUE TO SIZE OR LACK OF GROWTH. MODIFIER: NONE RECOMMENDATION: Continue annual screening with LDCT in 12 months. COMMENT: CRITERIA: No lung nodules. Nodules with specific calcifications: Complete, central, popcorn, concentric rings and fat containin g nodules. TECHNICAL DOCUMENTATION: JOB ID: [id number] Quality ID # [id number]: Final reports with documentation of one or more dose reduction techniques (e.g., Au tomated exposure control, adjustment of the mA and/or kV according to patient size, use of iterative reconstruction technique) 2010 [facility] Radiology Reading location - IP/workstation name: [email or web address]
== END ==
LOC: RAD 09:23
PROVIDERS: ATTEND Internal Medicine Pulmonary Disease
DX: Z12.2 Encounter for screening for malignant neoplasm of respiratory organs (principal); Z87.891 Personal history of nicotine dependence; R91.8 Other nonspecific abnormal finding of lung field; J43.9 Emphysema, unspecified
CPT/HCPCS: G0297